=== PATIENT | female | born 1955 | race Caucasian/White ===

== ENCOUNTER → 2016-12-27 | Outpatient (CLI) | payer OTHER ==
[~2016-12-27] MED LIST: ANTIVERT25 MG PO; ASPIRIN81 M1 PO; CEPHALEXIN500 M1 PO; CIPROFLOXACIN500 MG PO; DELTASONE20 M1 PO; HYDROCODONE BIT1 T11 PO; MEDROL DOSEPAK4 MG PO; MOTRIN800 MG PO; Motrin,Rufen800 MG PO; NKHM; PREDNICOT20 MG PO; ULTRAM50 MG PO; VIBRAMYCIN100 MG PO; VICODIN 5/500 505 MG PO; ZOFRAN ODT8 MG PO
== END | disposition home or self-care (01) ==
LOC: RAD 15:28
DX: R06.02 Shortness of breath (principal)

== ENCOUNTER 2017-08-09 13:18 | Inpatient (IN) | payer OTHER ==
[~2017-08-09] VITALS: Ht 167.6 cm; Wt 81.6 kg
--- NOTE | ~2017-08-09 | WRIGHTHP ---
[place], [place] PATIENT HISTORY AND PHYSICAL EXAM NAME: BRIANA DECKER [facility] #: [id number] UNIT #: [id number] ROOM: 521 DOCTOR: RACQUEL YOUNG MD BIRTHDATE: [birth year] DOS: 08/09/2017 HISTORY OF PRESENT ILLNESS: A 62-year-old years old, not known to me. The patient was in her usual state of health when she started experiencing some dizziness, nausea, emesis and vertigo-like symptoms. So, she decided to come into the Emergency Room. She denies having any chest pains or palpitations. Does not have any fever or chills. Does not have any cough, runny nose, sinus congestion or any URI symptoms. Does not have any shortness of breath. She does have some headaches this morning. She was admitted, was placed on Antivert and IV steroids and she feels better than yesterday. PAST MEDICAL HISTORY: Significant for: 1. Psoriatic arthritis. 2. Chronic migraines. 3. History of an admission here in 2012 with vertigo and was diagnosed at that time with benign positional vertigo. MEDICATIONS: She is on hydroxychloroquine and prednisone 5 b.i.d. SOCIAL HISTORY: Nonsmoker, does not use any alcohol. PHYSICAL EXAMINATION: VITAL SIGNS: Pressure is 109/59, pulse of 57, respirations 20, temperature 97.3. LUNGS: Clear. HEART: Regular. ABDOMEN: Obese, soft, nontender. EXTREMITIES: Without any edema. HEENT: Ear, nose and throat examination was within normal limits. LABORATORY DATA: White cell count elevated at 12.8. C-reactive protein 9.84. Comprehensive glucose 172, BUN 15, creatinine 1.20. Electrolytes were normal. ASSESSMENT AND PLAN: 1. Acute onset of nausea, emesis and vertigo, most likely has underlying Meniere's disease. The patient is placed on Antivert, also started on prednisone for possibility of vestibular neuritis, which I doubt after examining the patient, so the steroids will be discontinued. MRI of the brain has been ordered along with a carotid Doppler and if they come back negative, the plan will be to discharge the patient to home. 2. Chronic kidney disease. The patient is not on any nephrotoxic medications except for hydroxychloroquine, which needs to be continued to follow up as an outpatient. 2. Elevated CRP, check ESR, may need to consider temporal arteritis if the headaches persist. [place], [place] PATIENT HISTORY AND PHYSICAL EXAM [facility] [id number] UNIT #: [id number] ROOM: 521 DOCTOR: RACQUEL YOUNG MD BIRTHDATE: [birth year] RACQUEL YOUNG MD CM:HISPHYS:PATIENT HISTORY AND PHYSICAL EXAMINATION [id number] RACQUEL YOUNG MD 08/10/17 0941 interface
[2017-08-09 13:26] VITALS: BP 126/75
[2017-08-09 13:40] LABS: BASO % 0.2 % (0.0-1.0); EOS % 0.1 % (1.0-4.0); HEMOGLOBIN 12.6 g/dl (12.0-16.0); LYMPH # 0.5 10*3/uL (1.3-4.4); LYMPH % 4.2 % (27.0-41.0); MEAN CELL VOLUME 79.1 fl (81.0-99.0); MEAN CORPUSCULAR HGB 24.9 pg (27.0-31.0); MEAN CORPUSCULAR HGB CONC 31.5 g/dl (33.0-37.0); MEAN PLATELET VOLUME 9.3 fl (9.6-12.3); MONO # 0.9 10*3/uL (0.1-1.0); MONO % 7.1 % (3.0-9.0); NEUT # 11.2 10*3/uL (2.3-7.9); NEUT % 87.9 % (47.0-73.0); PLATELET COUNT AUTOMATED 180 10*3/uL (130-400); RED BLOOD COUNT 5.06 10*6/uL (4.10-5.10); RED CELL DISTRI WIDTH 17.3 % (0-14.5); WHITE BLOOD COUNT 12.8 10*3/uL (4.8-10.8)
[2017-08-09 13:49] LABS: ACT PARTIAL THROMBO TIME 22.5 SECONDS (20.8-31.5); INTERNATIONAL NORM RATIO 1.1 (2.0-3.5)
[2017-08-09 13:56] LABS: ALBUMIN 3.3 gm/dl (3.1-4.5); ALKALINE PHOSPHATASE 116 U/L (45-117); BUN 15 mg/dl (7-24); CHLORIDE 100 mmol/L (98-107); POTASSIUM 3.5 mmol/L (3.5-5.1); SGOT/AST 44 IU/L (3-35); SGPT/ALT 45 U/L (12-78); SODIUM 136 mmol/L (136-145); TOTAL PROTEIN 7.1 gm/dL (6.4-8.2)
[2017-08-09 13:58] LABS: TROPONIN I < 0.015 ng/ml (<0.045)
[2017-08-09 15:20] VITALS: BP 100/51
[2017-08-09 16:12] VITALS: BP 124/68
[2017-08-09] MEDS ORDERED: PREDNISONE5 MG PO (16:16)
[2017-08-09] MEDS ORDERED: PRILOSEC20 M1 PO (16:16)
[2017-08-09] MEDS ORDERED: HYDROXYCHLOROQ200 M1 PO (16:16)
[2017-08-09 18:09] VITALS: BP 115/66
[2017-08-09 21:49] VITALS: BP 105/61
[2017-08-10] VITALS: BP 109/59
[2017-08-10 08:00] VITALS: BP 108/58
[2017-08-10] MEDS ORDERED: MECLIZINE HCL25 M2 PO (08:36)
[2017-08-10 12:00] VITALS: BP 142/84
[2017-08-10 16:00] VITALS: BP 140/70
== END 2017-08-10 17:49 | disposition home or self-care (01) | DRG 149 ==
LOC: ED 13:18 → 5E 15:57 → EDHOLD 15:57 → 5E 16:33
PROVIDERS: Emergency Medicine
DX: H81.09 Meniere's disease, unspecified ear (principal); L40.50 Arthropathic psoriasis, unspecified; H93.3X9 Disorders of unspecified acoustic nerve; E66.9 Obesity, unspecified; G43.909 Migraine, unspecified, not intractable, without status migrainosus; N18.9 Chronic kidney disease, unspecified

== ENCOUNTER 2017-09-22 10:05 | Inpatient (IN) | payer OTHER ==
[~2017-09-22] VITALS: Ht 167.6 cm; Wt 77.6 kg
--- NOTE | ~2017-09-22 | PR ---
[place], [place] PROGRESS NOTE NAME: BRIANA DECKER UNIT #: [id number] ROOM: 403 DOCTOR: RACQUEL YOUNG MD BIRTHDATE: [birth year] DOS: SUBJECTIVE: The patient is having a lot of discomfort in her hands and legs. She also has some discomfort when she moves on the left side of the rib cage. She has continued to spike a fever with a temperature of 102.8 at 2000 hours yesterday. Midnight was 100.5, this morning fever has not been recorded yet. OBJECTIVE: GENERAL: She is awake and alert and oriented, in no major distress, except for discomfort of synovitis in her hands. VITAL SIGNS: Blood pressure is 113/57, pulse of 102, respirations 20, temperature 100.5,LUNGS: Diminished breath sounds. HEART: Regular. ABDOMEN: Soft, scaphoid. EXTREMITIES: Without any edema, but significant synovitis noticed in both her hands. LABORATORY DATA: WBC count is 13.6, hemoglobin 8.6, hematocrit 28.3, platelets 254. CT of the chest shows bilateral atelectasis with pleural thickening. 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 Urine culture is still not completed, gram-negative bacteria more than 100,000. ASSESSMENT AND PLAN: 1. Psoriatic arthritis with continued synovitis of hands, legs, ankles, knees, possibly responsible for fever, so placed on IV steroids. 2. Atelectasis bilaterally. Incentive spirometry will be ordered and advised consultation with Dr. Silverio. 3. Abnormal CT findings. An MRI of the kidney will be ordered. A complex mass is concerning. She has history of left nephrectomy for a mass which was benign, but pretty large. This was done in 1998 and she does not have any details. White cell count has come down from 17.6 to 13.6. The flu titer was negative. Lactic acid is normal. [place], [place] PROGRESS NOTE NAME: BRIANA DECKER UNIT #: [id number] ROOM: 403 DOCTOR: RACQUEL YOUNG MD BIRTHDATE: [birth year] RACQUEL YOUNG MD CM:PNTRANS [phone] RACQUEL YOUNG MD 09/24/17 0758 interface
--- NOTE | ~2017-09-22 | PR ---
[place], [place] PROGRESS NOTE NAME: BRIANA DECKER [facility] #: [id number] UNIT #: [id number] ROOM: 403 DOCTOR: RACQUEL YOUNG MD BIRTHDATE: [birth year] DOS: SUBJECTIVE: The patient feels better this morning. Her aches and pains in the hands have resolved. The fevers have completely. OBJECTIVE: VITAL SIGNS: Graphic trend shows blood pressure 116/68, pulse of 55, respirations 20, temperature 97.7, T-max was yesterday morning at 101.2 before the steroids were started. LUNGS: Diminished breath sounds. No wheezes heard. HEART: Regular. ABDOMEN: Obese, soft. EXTREMITIES: Without any edema. ASSESSMENT AND PLAN: 1. Fever, most likely inflammatory because it seems to have resolved once the IV steroids were started, so we can discontinue Rocephin and vancomycin, continue Levaquin. 2. Urinary tract infection with Escherichia coli, which is sensitive to Cipro. 3. Atelectasis of the lungs. Dr. Silverio has seen the patient, appreciate consult. PPD will be done because the patient had been on Enbrel in the past and we will add hydroxychloroquine for the psoriatic arthritis. RACQUEL YOUNG MD CM:PNTRANS [id number] RACQUEL YOUNG MD 09/25/17 1007 interface
--- NOTE | ~2017-09-22 | WRIGHTHP ---
[place], [place] PATIENT HISTORY AND PHYSICAL EXAM NAME: BRIANA DECKER [facility] #: [id number] UNIT #: [id number] ROOM: 403 DOCTOR: RACQUEL YOUNG MD BIRTHDATE: [birth year] DOS: 09/22/2017 HISTORY OF PRESENT ILLNESS: This patient is known to me from a previous admission. She was here in July 2017 with complaints of dizziness, nausea, vomiting and thought to be related to Meniere's disease. She was placed on Antivert and discharged to home. 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 While there she also mentioned to him that she was having a lot of chills and rigor, so he advised her to go to the Emergency Room where she was evaluated and was admitted. The patient states that she has had no abdominal pain, but she has been nauseous. She has not been eating very well. She does not have any urinary symptoms, does not have any diarrhea, does not have any chest pains or palpitations or shortness of breath. Does have some chronic aches and pains, but she does not have any dizziness, lightheadedness or headaches. PAST MEDICAL HISTORY: Significant for: 1. Psoriatic arthritis. 2. Chronic migraines.. MEDICATIONS: The only medication that she tells me that she is on right now is gabapentin 300 mg 3 times a day. She also had been on hydroxychloroquine in the past. PHYSICAL EXAMINATION: GENERAL: Today she is awake and alert and oriented. VITAL SIGNS: Blood pressure is 121/67, pulse of 76, respirations 18, T-max of 103.6. LUNGS: Diminished breath sounds. No wheezes, rales or rhonchi heard. HEART: Regular. ABDOMEN: Obese, soft, nontender. EXTREMITIES: Without any edema. No costovertebral angle tenderness noted. HEENT: Absolutely within normal limits. NECK: No neck rigidity felt. ASSESSMENT AND PLAN: 1. The patient with high grade fever. Urine culture is showing negative bacteria. We do not have any identification. She is on ____. Because of high-grade fever, she was also started on vancomycin. Lactic acid is normal. Chest x-ray was unremarkable, but because of again high grade fever we will need to rule out pyelonephritis, so CT of the abdomen will be ordered. 2. The patient with psoriatic arthritis. We will go ahead and arrange for ESR, CRP to make sure that this fever is not infectious and possibly inflammatory. Home medications have been continued. Further treatment plan depending on the culture results and CT findings. [place], [place] PATIENT HISTORY AND PHYSICAL EXAM NAME: BRIANA DECKER UNIT #: [id number] ROOM: 403 DOCTOR: RACQUEL YOUNG MD BIRTHDATE: [birth year] RACQUEL YOUNG MD CM:HISPHYS:PATIENT HISTORY AND PHYSICAL EXAMINATION 6 09 RACQUEL YOUNG MD 09/24/17 0618 interface
--- NOTE | ~2017-09-22 | PR ---
[place], [place] PROGRESS NOTE NAME: BRIANA DECKER [facility] #: [id number] UNIT #: [id number] ROOM: 403 DOCTOR: RACQUEL YOUNG MD BIRTHDATE: [birth year] DOS: SUBJECTIVE: The patient is doing fine without any complaints. OBJECTIVE: VITAL SIGNS: Graphic trend shows a pressure of 135/71, pulse of 74, respirations 20, temperature 98.8. LUNGS: Clear. HEART: Regular. ABDOMEN: Obese, soft. EXTREMITIES: Without any edema. Synovitis is improving. MRI of the kidney shows multiple masses in the kidney, which appears to be angiolipomas. There is some increase in the size since 2014. ASSESSMENT AND PLAN: 1. The patient who presented with fever from an inflammatory joint disease. The patient is stable and improved. 2. Urinary tract infection, on antibiotics. 3. 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 The patient is advised to follow up with PCP, stable and can be discharged today. RACQUEL YOUNG MD CM:PNTRANS 0830 RACQUEL YOUNG MD 09/27/17 0922 interface
--- NOTE | ~2017-09-22 | PR ---
[place], [place] PROGRESS NOTE [id number] UNIT #: [id number] ROOM: 403 DOCTOR: ALEXANDRA QUINONES MD BIRTHDATE: [birth year] DOS: 09/26/2017 PULMONARY FOLLOWUP SUBJECTIVE: The patient noted comfortable at this time, but noted with continued resolution of the temperature. The coughing has been noted minimal and dry. There were no symptoms of chest pain or abdominal pain. OBJECTIVE: VITAL SIGNS: For the patient which were recorded showed the temperature noted as normal, respiratory rate 18, heart rate 78, blood pressure 150/79. The pulse oxygen saturation of the patient room air 94% saturation. HEENT: Head was atraumatic. Eyes: No icterus. NECK: Supple. CARDIOVASCULAR: S1, S2 audible. LUNGS: Noted without any wheezing or crackles. ABDOMEN: Soft, nontender. Bowel sounds present. EXTREMITIES: Without any acute edema. LABORATORY DATA: The MRI of the abdomen shows evidence of right renal angiolipomas overall increase in the volume compared to the older study from 06/13/2017. IMPRESSION: 1. The patient who has been noted to have resolution. The temperature for the patient most likely related to the current inflammatory arthropathy, this patient responded well to the treatment of corticosteroids and evidence of sepsis or septic arthritis. 2. Angiolipoma for the patient, which has been noted. The lung disease associated symptoms with angiolipoma. The patient is a lymphangioleiomyomatosis. However, the patient does not have any clinical radiologic evidence of such disease. PLAN OF MANAGEMENT: Continue corticosteroids, consider discontinuing all the antibiotics. Discharge planning could be started. [place], [place] PROGRESS NOTE NAME: BRIANA DECKER UNIT #: [id number] ROOM: 403 DOCTOR: ALEXANDRA QUINONES MD BIRTHDATE: [birth year] ALEXANDRA SMYTH MD CM:PNTRANS [id number] ALEXANDRA MARIE MD 09/27/17 0043 interface
--- NOTE | ~2017-09-22 | PR ---
[place], [place] PROGRESS NOTE NAME: BRIANA DECKER [facility] #: [id number] UNIT #: [id number] ROOM: 403 DOCTOR: RACQUEL YOUNG MD BIRTHDATE: [birth year] DOS: SUBJECTIVE: The patient is doing fine without any complaints. OBJECTIVE: VITAL SIGNS: blood pressure is 135/72, pulse of 58, respirations 20, temperature 98.6. LUNGS: Clear. HEART: Regular. ABDOMEN: Obese, soft, nontender. EXTREMITIES: Decreased edema. ASSESSMENT AND PLAN: 1. Psoriatic arthritis with severe synovitis, most likely responsible for the high-grade fever, which responded with IV steroids and the patient is much better. We will cut back on the steroids. 2. Urinary tract infection with Escherichia coli, already on Cipro. 3. Atelectasis of the lungs. Discussed with Dr. Silverio. This does not appear to be pneumonia and no inflammatory pathology is noted. 4. Renal cystic mass, awaiting an MRI. The plan is to discharge her to home tomorrow. RACQUEL YOUNG MD CM:PNTRANS 0826 RACQUEL YOUNG MD 09/26/17 0903 interface
--- NOTE | ~2017-09-22 | DS ---
[place], [place] DISCHARGE SUMMARY NAME: BRIANA DECKER [facility] #: [id number] UNIT #: [id number] ROOM: 403 DOCTOR: RACQUEL YOUNG MD BIRTHDATE: [birth year] DOS: 09/27/2017 DIAGNOSES: 1. Fever, most likely inflammatory, arthropathy causing it, resolved with IV steroids. 2. Urinary tract infection with negative blood cultures. 3. Angiomyolipoma of the kidney. 4. History of the right kidney which seems to have increased slightly from the comparison CT of 2014. 5. History of left nephrectomy for a similar problem. 6. Psoriatic arthritis. 7. Chronic migraines. MEDICATIONS: She is on are hydroxychloroquine 200 b.i.d., Ceftin 250 twice daily, prednisone 40 daily for 5 days, 30 daily for 5 days, 20 daily for 5 days, 10 daily continuous without a stop ____ , gabapentin 300 t.i.d. HOSPITAL COURSE: This patient is very well to me from a previous admission, 62-year-old who presents with chills and rigor. Please refer to H and P for details. After admission, she had urine culture, blood cultures ordered. Chest x-ray was negative. Urine showed E. coli and she was placed on appropriate antibiotics. The patient continued to spike a fever even on antibiotics. No major infectious source was identified. Blood cultures were negative. The patient did not have any meningeal signs. She did not have any ENT issues. Blood cultures came back negative. CT of the chest showed some small mild atelectasis. No actual pneumonia was seen, so this was thought to be related to inflammatory arthropathy and the patient was started on IV steroids. With that the fever completely resolved in 2 hours after the IV steroids were given and she has remained afebrile since then. MRI of the abdomen was done because of an abnormal CT showing up a cystic mass of the kidney. This again shows multiple masses in the right kidney which appears to be angiomyolipoma. The patient is advised not to take any nonsteroidals because she has history of nephrectomy and the right kidney having angiomyolipoma increases the risk of renal failure. The patient is stable and improved and is not having any new problems, so plan is to discharge her to home, to be followed up by her PCP. [place], [place] DISCHARGE SUMMARY NAME: BRIANA DECKER UNIT #: [id number] ROOM: 403 DOCTOR: RACQUEL YOUNG MD BIRTHDATE: [birth year] RACQUEL YOUNG MD CM:MELLY [phone] RACQUEL YOUNG MD 09/27/17 0922 interface
--- NOTE | ~2017-09-22 | CON ---
[place], [place] REPORT OF CONSULTATION NAME: BRIANA DECKER [facility] #: [id number] UNIT #: [id number] ROOM: 403 DOCTOR: LIBRA MARIE MDALEXANDRA BIRTHDATE: [birth year] DOS: 09/24/2017 PULMONARY CONSULTATION EVALUATION CONSULTATION REQUESTED BY: Dr. Nicole Ogden. REASON FOR CONSULTATION: To assess the patient's fever and to assess for any pulmonary pathology. HISTORY OF PRESENT ILLNESS: This is a 62-year-old white female, who has been noted with history of psoriasis, psoriatic arthritis/rheumatoid arthritis. The patient had been seen by the dynamiter. She has been recently assessed and was started on Enbrel and taken 10 doses of Enbrel as ordered in the past several weeks. The patient stated that she has developed progressive fatigue and tiredness, with increase symptoms, arthritis and others as she has took the Enbrel. The patient was also noted with some pain in the joints mostly in the upper extremities as well as in the right foot. The patient has been admitted to the hospital under care of Dr. Nicole Ogden on 09/22/2017. The patient reported symptoms of generalized weakness and fatigue. Denies any symptoms of acute shortness of breath. The patient does have a nonproductive cough. Denies symptoms of any chest pain. Denies symptoms of hemoptysis. REVIEW OF SYSTEMS: CONSTITUTIONAL: Fatigue and tiredness with fever noted at home and a significant amount of chills in the last several days. EYES: Denies any burning, redness, or discharge. EARS, NOSE, THROAT SYMPTOMS: Denies sore throat, hoarseness, otalgia, postnasal drainage, or epistaxis. CARDIOVASCULAR: Denies angina pain, palpitation or edema of the lower extremities. GASTROINTESTINAL: Dysphagia, nausea, vomiting, diarrhea, abdominal pain, hematemesis, melena, or hematochezia. GENITOURINARY: No dysuria, suprapubic pain, or hematuria. MUSCULOSKELETAL: Pain was noted in the joint of the bilateral fingers, hands as well as in the right foot. The patient has noted some deformities related with the previous arthritis, which has been diagnosed and treated. SKIN: Abnormal lesions or rashes. CENTRAL NERVOUS SYSTEM: No dizziness, headache, diplopia, syncopal episodes, or dizziness. Remaining systems were reviewed. They were noted all negative. PAST MEDICAL HISTORY: 1. History of psoriasis and psoriatic arthritis. 2. Chronic migrainous headache. 3. Mild obesity. SOCIAL HISTORY: The patient was noted nonsmoker lifetime. There was no history of alcohol or illicit drug use. , has 2 children and lives at home. [place], [place] REPORT OF CONSULTATION NAME: BRIANA DECKER UNIT #: [id number] ROOM: 403 DOCTOR: ALEXANDRA QUINONES MD BIRTHDATE: [birth year] FAMILY HISTORY: Mother is living 90-year-old with history of dementia. Father is 91 years old without any known medical illnesses. PAST SURGICAL HISTORY: Reported as left kidney surgery, which was noted noncancerous, in 1998 removed. Bilateral total knee replacement in 2017. MEDICATIONS: Current administered medication was noted as use of IV Solu-Medrol 30 mg b.i.d., vancomycin, Rocephin and pain medications as well as gabapentin. DRUG ALLERGY HISTORY: No known drug allergies. PHYSICAL EXAMINATION: GENERAL: A 62-year-old female has been currently noted to be awake and alert, sitting on the chair. The was also present in the room at time of the history and physical examination and assessment. The patient's height was noted as 5 feet 6 inches, weight of 171 pounds. The BMI noted 27. VITAL SIGNS: Which has been recorded showed the temperature noted as a T-max of 102.8 degree Fahrenheit that occurred yesterday in the afternoon. Admission, temperature noted 99.2 degree Fahrenheit. The respiratory rate was ranging between 20-18, heart rate of 106-118 with mild sinus tachycardia, blood pressure 150/65-97/59. The pulse oxygen saturation noted on room air 95% saturation. HEENT: Examination shows head was atraumatic. Eyes nonicterus. NECK: Supple. CARDIOVASCULAR: S1, S2 was audible. LUNGS: Clear, noted bilaterally on auscultation. There were no added sounds. ABDOMEN: Noted with [id number] obesity. Bowel sounds present. EXTREMITIES: Noted without any acute edema, clubbing or cyanosis. CENTRAL NERVOUS SYSTEM: Cranial nerves 2-12 intact. No focal deficit. MUSCULOSKELETAL: Noted with some swelling without any palpable area of abscess or redness noted in any of the joints of the hands and the right foot. SKIN: Visible skin, no lesions or rashes at this time. LABORATORY DATA: The CBC today on admission, WBC count 17.3, hemoglobin 10.5, hematocrit normal, and platelet count normal. Lactic acid 1.3 on admission. CMP of 09/22/2017 on admission, BUN 13, creatinine 1.15. Albumin 2.8. Influenza A and B, nasal washing antigens were noted negative. CBC this morning, WBC count 13.6, hemoglobin 8.6, normal platelet. BMP of the patient noted normal BUN, creatinine, glucose normal. C-reactive protein 20. Urine culture noted heavy growth of E. coli, noted essentially pansensitive species. ESR was noted 80 this morning. Vancomycin trough level 10.9. Blood culture from the of this month showed no bacterial growth. The CT scan of the abdomen and pelvis, and chest was also done. CT scan of the abdomen and pelvis, which were reported by the radiology service, findings were dictated as a complex cyst with gradual enlargement. The right kidney without any other abnormal findings were reported on comparison of the CT scan done on 06/13/2014 by the radiologist. Chest CT scan was done and assessed. The parenchymal window was personally reviewed shows mild pleural thickening noted with some area of atelectasis in the left lower lobe, otherwise lungs were noted clear of any acute pulmonary infiltration. The mediastinal window were also reviewed, does not show any significant lymphadenopathy. [place], [place] REPORT OF CONSULTATION NAME: BRIANA DECKER UNIT #: [id number] ROOM: 403 DOCTOR: ALEXANDRA QUINONES MD BIRTHDATE: [birth year] IMPRESSION: 1. The patient who has been currently admitted to the hospital with mild nonproductive cough may be of not clinical significant noted with the fever up to 100 degrees Fahrenheit with possible consideration of viral syndrome. So far, there has not been any focus of infection noted for the current assessment except only urine culture noted positive for E. coli, which has already been treated based on the sensitivities with the use of Rocephin. 2. History of psoriatic arthritis with edema noted as well. 3. Fever has been reported with the use of Enbrel previously, the patient has not been taking the medication currently as well. There were no signs of any active systemic infection such as ____ infection was known. PLAN OF MANAGEMENT: Agree with the use of steroids for inflammatory condition, treatment, most likely arthritis, could also cause fever at this time closely monitor culture results. TB Gold test will be ordered as a part of the workup since the patient was previously given as the Enbrel. The monitoring will be continued closely with recent change in treatment might be recommended based on any new data or information if available. The coughing has been noted dry and not severe and would not require any cultures as well. All other supportive therapy and plan of management to be done. Additional treatment changes will be made based on the progression of the illness. ALEXANDRA SMYTH MD CM:CONSTR:REPORT OF CONSULTATION 1527 09/25/17 0354 interface
--- NOTE | ~2017-09-22 | PR ---
[place], [place] PROGRESS NOTE NAME: BRIANA DECKER [facility] #: [id number] UNIT #: [id number] ROOM: 403 DOCTOR: LIBRA MARIE MD,ALEXANDRA BIRTHDATE: [birth year] DOS: 09/27/2017 PULMONARY PROGRESS NOTE SUBJECTIVE: She has been noted comfortable. At this time, resting on the bed with complete resolution of the respiratory symptoms, nonproductive cough as well as a fever. The patient now noticed symptoms of hemoptysis. She was planned for home discharge today, assessed by Dr. Nicole Ogden. OBJECTIVE: VITAL SIGNS: Normal temperature, respiratory rate 20, heart rate 84, blood pressure is 155/94. Pulse ox on room air 99-100% saturation. HEENT: Examination shows head was atraumatic. Eyes nonicterus. NECK: Supple. CARDIOVASCULAR: S1, S2 is audible. LUNGS: Noted without any wheeze or crackles. ABDOMEN: Soft, nontender. EXTREMITIES: Without any acute edema. IMPRESSION: 1. Stable respiratory status was noted at the present time. 2. Arthritis was noted inflammatory, treated with current steroids and resolution of the fever. PLAN OF MANAGEMENT: No changes in the plan of management at this time. The patient will be continued on current plan of therapy as previously. Usual care, other supportive plan of management, and treatments. ALEXANDRA SMYTH MD CM:PNTRANS [phone] ALEXANDRA MARIE MD 09/28/17 0106 interface
--- NOTE | ~2017-09-22 | PR ---
[place], [place] PROGRESS NOTE NAME: BRIANA DECKER [facility] #: [id number] UNIT #: [id number] ROOM: 403 DOCTOR: LIBRA MARIE MD,ALEXANDRA BIRTHDATE: [birth year] DOS: 09/25/2017 SUBJECTIVE: She has been noted comfortable at this time, feeling much better since the patient started on steroids, resolution of the fever was noted with that as well. She was also reported reduction of the pain and swelling of the joints of the hands and the wrists. She has not been reported any pain in the foot as well. OBJECTIVE: VITAL SIGNS: For the patient shows normal temperature, respiratory rate 18, heart rate 71, blood pressure 120/72. The pulse oxygen saturation on room air 96% saturation. HEENT: Examination shows head was atraumatic. Eyes nonicterus. NECK: Supple. CARDIOVASCULAR: S1, S2 is audible. LUNGS: The patient was noted without any wheeze or crackles at the present time. ABDOMEN: Soft, nontender. EXTREMITIES: Without any acute edema. IMPRESSION: The patient with urinary tract infection, resolution of the fever, with acute inflammatory arthropathy for this patient, with history of psoriatic arthritis, most likely is the cause of the pain. PLAN OF TREATMENT: Continue corticosteroids at the current dose. Deescalating the antibiotics for the patient as well. At the present time, the patient response to treatment. Continue antibiotic for the management urinary tract infection. Vancomycin will be discontinued. Other supportive therapy, plan of management for the patient to be continued. Potential discharge home could be considered in the morning. The patient remains afebrile with the current antibiotic usage. ALEXANDRA SMYTH MD CM:PNTRANS [id number] ALEXANDRA MARIE MD 09/25/172135 interface
[~2017-09-22 10:05] MED LIST changes: +HYDROXYCHLOROQ200 M1 PO; +MECLIZINE HCL25 M2 PO; +PREDNISONE5 MG PO; +PRILOSEC20 M1 PO
[2017-09-22 10:15] VITALS: BP 133/86
[2017-09-22 10:34] LABS: BASO % 0.2 % (0.0-1.0); EOS # 0.1 10*3/uL (0.0-0.4); EOS % 0.6 % (1.0-4.0); HEMATOCRIT 33.5 % (37.0-47.0); HEMOGLOBIN 10.5 g/dl (12.0-16.0); LYMPH # 0.6 10*3/uL (1.3-4.4); LYMPH % 3.6 % (27.0-41.0); MEAN CELL VOLUME 80.3 fl (81.0-99.0); MEAN CORPUSCULAR HGB 25.2 pg (27.0-31.0); MEAN CORPUSCULAR HGB CONC 31.3 g/dl (33.0-37.0); MEAN PLATELET VOLUME 9.7 fl (9.6-12.3); MONO # 0.9 10*3/uL (0.1-1.0); MONO % 5.3 % (3.0-9.0); NEUT # 15.5 10*3/uL (2.3-7.9); NEUT % 89.8 % (47.0-73.0); PLATELET COUNT AUTOMATED 360 10*3/uL (130-400); RED BLOOD COUNT 4.17 10*6/uL (4.10-5.10); RED CELL DISTRI WIDTH 15.1 % (0-14.5); WHITE BLOOD COUNT 17.3 10*3/uL (4.8-10.8)
[2017-09-22 10:48] LABS: ALBUMIN 2.8 gm/dl (3.1-4.5); CREATININE 1.15 mg/dL (0.55-1.02); POTASSIUM 3.9 mmol/L (3.5-5.1); TOTAL PROTEIN 7.7 gm/dL (6.4-8.2)
[2017-09-22 11:14] LABS: BILIRUBIN 2+ (NEGATIVE); BLOOD NEGATIVE (NEGATIVE); CLARITY CLOUDY (CLEAR); COLOR YELLOW (YELLOW); GLUCOSE NEGATIVE (NEGATIVE); KETONE 1+ (NEGATIVE); LEUKO ESTERASE 2+ (NEGATIVE); NITRITE POSITIVE (NEGATIVE); SPECIFIC GRAVITY 1.025 (1.005-1.030)
[2017-09-22 11:22] LABS: BACTERIA 4+; EPITHELIAL CELLS 16-20; WBC 51-100 wbc/hpf (0-5)
[2017-09-22 13:40] VITALS: BP 111/67
[2017-09-22] MEDS ORDERED: NEURONTIN300 MG PO (14:12)
[2017-09-22] MEDS ORDERED: ENBREL50 MG/1 M1 SQ (14:13)
[2017-09-22 14:30] VITALS: BP 115/60
[2017-09-22 16:00] VITALS: BP 120/69
[2017-09-22 20:00] VITALS: BP 130/72
[2017-09-23] VITALS: BP 97/59
[2017-09-23 05:55] LABS: BASO % 0.2 % (0.0-1.0); EOS # 0.1 10*3/uL (0.0-0.4); HEMATOCRIT 28.7 % (37.0-47.0); HEMOGLOBIN 8.8 g/dl (12.0-16.0); LYMPH # 0.6 10*3/uL (1.3-4.4); LYMPH % 5.6 % (27.0-41.0); MEAN CELL VOLUME 81.1 fl (81.0-99.0); MEAN CORPUSCULAR HGB 24.9 pg (27.0-31.0); MEAN CORPUSCULAR HGB CONC 30.7 g/dl (33.0-37.0); MEAN PLATELET VOLUME 9.9 fl (9.6-12.3); MONO # 0.6 10*3/uL (0.1-1.0); MONO % 5.6 % (3.0-9.0); NEUT # 9.9 10*3/uL (2.3-7.9); NEUT % 87.1 % (47.0-73.0); PLATELET COUNT AUTOMATED 280 10*3/uL (130-400); RED BLOOD COUNT 3.54 10*6/uL (4.10-5.10); RED CELL DISTRI WIDTH 15.1 % (0-14.5); WHITE BLOOD COUNT 11.4 10*3/uL (4.8-10.8)
[2017-09-23 06:07] LABS: BUN 11 mg/dl (7-24); CHLORIDE 104 mmol/L (98-107); CREATININE 1.01 mg/dL (0.55-1.02); POTASSIUM 3.6 mmol/L (3.5-5.1); SODIUM 135 mmol/L (136-145)
[2017-09-23 08:00] VITALS: BP 121/67
[2017-09-23 12:00] VITALS: BP 109/63
[2017-09-23 16:00] VITALS: BP 113/59
[2017-09-23 20:00] VITALS: BP 120/61
[2017-09-24] VITALS: BP 113/57
[2017-09-24 06:10] LABS: BASO % 0.2 % (0.0-1.0); EOS # 0.1 10*3/uL (0.0-0.4); HEMATOCRIT 28.3 % (37.0-47.0); HEMOGLOBIN 8.6 g/dl (12.0-16.0); LYMPH # 0.7 10*3/uL (1.3-4.4); LYMPH % 4.9 % (27.0-41.0); MEAN CELL VOLUME 82.5 fl (81.0-99.0); MEAN CORPUSCULAR HGB 25.1 pg (27.0-31.0); MEAN CORPUSCULAR HGB CONC 30.4 g/dl (33.0-37.0); MEAN PLATELET VOLUME 10.5 fl (9.6-12.3); MONO # 0.8 10*3/uL (0.1-1.0); MONO % 5.5 % (3.0-9.0); NEUT # 11.9 10*3/uL (2.3-7.9); NEUT % 87.8 % (47.0-73.0); PLATELET COUNT AUTOMATED 244 10*3/uL (130-400); RED BLOOD COUNT 3.43 10*6/uL (4.10-5.10); RED CELL DISTRI WIDTH 15.4 % (0-14.5); WHITE BLOOD COUNT 13.6 10*3/uL (4.8-10.8)
[2017-09-24 06:28] LABS: BUN 7 mg/dl (7-24); CHLORIDE 104 mmol/L (98-107); CREATININE 0.95 mg/dL (0.55-1.02); POTASSIUM 3.5 mmol/L (3.5-5.1); SODIUM 138 mmol/L (136-145)
[2017-09-24 08:00] VITALS: BP 114/78
[2017-09-24 12:00] VITALS: BP 115/65
[2017-09-24 16:00] VITALS: BP 110/60
[2017-09-24 20:00] VITALS: BP 95/61
[2017-09-25] VITALS: BP 116/68
[2017-09-25 08:00] VITALS: BP 102/68
[2017-09-25 08:08] LABS: RHEUMATOID ARTHRITIS FACTOR 12.7 IU/mL (0.0-13.9)
[2017-09-25 12:00] VITALS: BP 122/72
[2017-09-25 16:00] VITALS: BP 133/81
[2017-09-25 20:00] VITALS: BP 122/64
[2017-09-26] VITALS: BP 135/72
[2017-09-26 08:00] VITALS: BP 150/79
[2017-09-26 12:00] VITALS: BP 135/70
[2017-09-26 16:00] VITALS: BP 138/79
[2017-09-26 20:00] VITALS: BP 137/79
[2017-09-27] VITALS: BP 135/71
[2017-09-27 08:00] VITALS: BP 155/94
[2017-09-27] MEDS ORDERED: HYDROXYCHLOROQ200 M1 PO (08:31)
[2017-09-27] MEDS ORDERED: PREDNISONE5 MG PO (08:31)
[2017-09-27] MEDS ORDERED: CEFUROXIME AXE250 MG PO (08:31)
[2017-10-01 20:10] LABS: MITOGEN VALUE 0.03 IU/mL (.); TB Ag MINUS NIL VALUE <0.00 IU/mL (.); TB Ag VALUE 0.04 IU/mL (.); TB GOLD Indeterminate (Negative)
== END 2017-09-27 12:00 | disposition home or self-care (01) | DRG 872 ==
LOC: ED 10:05 → EDHOLD 13:26 → 4E 13:26
PROVIDERS: Emergency Medicine; Internal Medicine; Internal Medicine Critical Care Medicine
DX: A41.9 Sepsis, unspecified organism (principal); L40.50 Arthropathic psoriasis, unspecified; N39.0 Urinary tract infection, site not specified; J98.11 Atelectasis; D17.71 Benign lipomatous neoplasm of kidney; G43.909 Migraine, unspecified, not intractable, without status migrainosus; M19.90 Unspecified osteoarthritis, unspecified site; Z82.49 Family history of ischemic heart disease and other diseases of the circulatory system; Z80.8 Family history of malignant neoplasm of other organs or systems; G43.809 Other migraine, not intractable, without status migrainosus; E66.9 Obesity, unspecified; Z68.26 Body mass index [BMI] 26.0-26.9, adult

== ENCOUNTER 2017-10-03 09:38 | Inpatient (IN) | payer OTHER ==
[~2017-10-03] VITALS: Ht 167.6 cm; Wt 74.2 kg
--- NOTE | ~2017-10-03 | WRIGHTHP ---
[place], [place] PATIENT HISTORY AND PHYSICAL EXAM NAME: BRIANA DECKER [facility] #: [id number] UNIT #: [id number] ROOM: 506 DOCTOR: RACQUEL YOUNG MD BIRTHDATE: [birth year] DOS: 10/04/2017 HISTORY OF PRESENT ILLNESS: The patient is 62 years old, known to me from a previous admission. The patient comes in with increasing weakness. As per family members, after she left, she continued to worsen and over the last couple of days, she has not gotten out of bed. She has not eaten much food. She does not have any complaints of diarrhea, does not have any chest pains or palpitations. She hurts all over and she is unable to move much, mostly bedridden as per the and the patient. She has some minimal nausea, but does not have any upset stomach, any diarrhea, any urinary symptoms. PAST MEDICAL HISTORY: Significant for: 1. Again, last hospitalization with fever, most likely inflammatory arthritis. She was treated with steroids with resolution of fever. 2. Urinary tract infection. 3. Sepsis ruled out with negative cultures. 4. Angiomyolipoma of the kidney. 5. History of left nephrectomy for angiomyolipoma. 6. Psoriatic arthritis. 7. Chronic migraines. MEDICATIONS: She was currently on hydroxychloroquine, gabapentin, prednisone and Ceftin. SOCIAL HISTORY: Nonsmoker, does not use any alcohol. PHYSICAL EXAMINATION: GENERAL: She is awake and alert and oriented. VITAL SIGNS: Graph trend shows a pressure 145/79, pulse of 107, respirations 19, temperature 99.5. LUNGS: Diminished breath sounds. No wheezes heard. HEART: Regular. ABDOMEN: Obese, soft, nontender. EXTREMITIES: Without any edema. Synovitis seems to be much better than last admission I saw her, but she seems to have a very hard time even moving in bed. She had a hard time rolling over. She seems to be incredibly weaker than about a week ago. Echocardiogram showed normal LV function. Chest x-ray was negative. CT of the abdomen and pelvis shows angiomyolipoma, which is unchanged. Glucose 133, BUN 8, creatinine 0.81, sodium 138, potassium 3.8, chloride 104, bicarbonate 24. WBC count 27.1, hemoglobin 10.2, hematocrit 32.9, platelets 244. ESR was 57. CRP 15.40, which is an improvement from last admission. ASSESSMENT AND PLAN: 1. Adult failure to thrive with increasing weakness. The patient have PT, OT and possible social service for placement for rehabilitation purposes. 2. Inflammatory arthropathy with history of psoriatic arthritis. She was given a tapering dose of steroids when she left, ran out of the medicine about 3 days ago for unknown reason because the prescription was for prednisone without any [place], [place] PATIENT HISTORY AND PHYSICAL EXAM NAME: BRIANA DECKER UNIT #: [id number] ROOM: [facility] DOCTOR: RACQUEL YOUNG MD BIRTHDATE: [birth year] stop date. This may have made her much more weaker. The steroid also may have caused elevated white cell count. So, continue to monitor. Restart the low dose steroids and hopefully the white cell count comes down. Dr. Silverio has been consulted. Discussed with him in detail. 3. Low grade fever with possibly underlying infectious process. So far, cultures have come back negative, I will ask an ID opinion. The patient may require a Rheumatology consultation and may require transfer to another hospital. Yesterday, the patient did not want transferred out and will discuss with the patient more about it. 4. Possibility of Lyme disease, Lyme titer has been sent, doxycycline started. RACQUEL YOUNG MD CM:HISPHYS:PATIENT HISTORY AND PHYSICAL EXAMINATION 0914 RACQUEL YOUNG MD 10/04/17 3267 interface
--- NOTE | ~2017-10-03 | CON ---
[place], [place] REPORT OF CONSULTATION NAME: BRIANA DECKER [facility] #: [id number] UNIT #: [id number] ROOM: 506 DOCTOR: LIBRA MARIE MD,ALEXANDRA BIRTHDATE: [birth year] DOS: 10/04/2017 CONSULTATION REQUESTED BY: Nicole Ogden M.D. HISTORY OF PRESENT ILLNESS: This is a 62-year-old white female who has been known to me from recent hospitalization. The patient was admitted to the hospital with significant edema and pain of the joints, mainly involving the upper extremity as well as the right foot. The patient was treated with corticosteroids. Also noted febrile illness at this time. There was no infection isolated. The patient was treated and sent home and was taking prednisone, which has been tapered from 50 mg, 10 mg less to every sixth day. The patient presented back to the Emergency Room and was hospitalized from yesterday under the care of Dr. Nicole Ogden. The patient had developed significant pain, which is described in the muscles with difficulty of movement. The patient was complaining of pain, which is noted more generalized at this time. Denies symptoms of chest pain. She denies symptoms of coughing or sputum expectoration. Low-grade fever returned. The temperature noted yesterday at 99.5 degrees Fahrenheit, later 100 degrees Fahrenheit. The patient does complain of mild cough, which has been noted nonproductive previously. Denies any symptoms of hemoptysis or chest pain. She denies symptoms of acute shortness of breath. REVIEW OF SYSTEMS: CONSTITUTIONAL SYMPTOMS: Fatigue, tiredness still reported which I noted actually worsened than previously. Also noted low-grade fever in the last 24 hours. EYES: Denies any burning, redness, or tenderness. EARS, NOSE, THROAT SYMPTOMS: Denies sore throat, hoarseness, otalgia, postnasal drainage, or epistaxis. CARDIOVASCULAR: Denies anginal pain, edema, or pain in lower extremities. GASTROINTESTINAL: Denies dysphagia, nausea, vomiting, diarrhea, abdominal pain, hematemesis, melena, or hematochezia. GENITOURINARY: Some burning of the urination noted. There were no hematuria symptoms. CENTRAL NERVOUS SYSTEM: No dizziness, headache, diplopia, or syncopal episode. MUSCULOSKELETAL: The patient still noticed some pain in the joints and some muscles as well. The remaining systems were reviewed with the patient, they were noted all negative. PAST MEDICAL HISTORY, SOCIAL HISTORY, SURGICAL HISTORY, FAMILY HISTORY: All remained unchanged since my consultation of 09/24/2017. Reviewed with the patient and her , without changes noted at this time. Refer to the consultation for any details needed with the document present in the [facility]. CURRENT MEDICATIONS: The patient noted use of prednisone 20 mg daily, doxycycline 100 mg IV b.i.d., hydroxychloroquine 200 mg p.o. b.i.d., IV Zosyn 3.375 grams IV q. 8 hours, and Tylenol p.r.n. use. DRUG ALLERGIES: No known drug allergies. [place], [place] REPORT OF CONSULTATION NAME: BRIANA DECKER UNIT #: [id number] ROOM: [facility] DOCTOR: LIBRA MAIRE MD,ALEXANDRA BIRTHDATE: [birth year] PHYSICAL EXAMINATION: GENERAL: A 62-year-old white female patient was noted currently without any acute distress. Height of 5 feet 6 inches, weight 163 pounds, BMI 26.4. VITAL SIGNS: Temperature 100 degrees Fahrenheit to normal temperature, respiratory rate 18-19, heart rate of 104, mild sinus tachycardia 85, blood pressure 106/61-130/54. Pulse oxygen saturation on room air 97-100% saturation noted. HEENT: Head was atraumatic. Eyes nonicterus. NECK: Supple. CARDIOVASCULAR: S1, S2 audible. LUNGS: Without any wheezes or crackles at the present time. ABDOMEN: Soft, nontender. Bowel sounds present. EXTREMITIES: The patient noted without acute edema. MUSCULOSKELETAL: The patient was noted with chronic deformities. Previous synovitis finding and swelling of the wrist and metacarpophalangeal joint seemed to be decreased. CENTRAL NERVOUS SYSTEM: Difficult to examine due to the patient's decreased mobility; however, there were no focal neurologic deficits. Possibly, general weakness was considered. VISIBLE SKIN: Noted without rashes or lesions. IMAGING DATA: The patient's CT scan of the abdomen and pelvis that was done yesterday was noted without any acute abnormality. Benign lesion of the right kidney was noted, angiolipoma previously. A 2-view chest x-ray that was done in the Emergency Room was reviewed, essentially noted as negative study. LABORATORY DATA: C-reactive protein was noted elevated at 15.40. Lactic acid 2.1 on admission, later 0.8 yesterday. PT and PTT were normal. CBC yesterday, WBC count 27.1, hemoglobin 10.4, hematocrit 32.9, platelets 244,000. CMP on 10/03/2017, BUN normal, creatinine normal, glucose 196, sodium 134. CPK was noted as normal. ESR decreased to 57. Influenza A and B nasal washing antigen completed yesterday in the Emergency Room was reported negative. Urinalysis noted 2+ bacteria, otherwise no abnormal finding. CBC this morning, WBC count decreased to 24.1, hemoglobin 8.7, hematocrit 24.4, platelet count was normal. IMPRESSION: 1. The patient has been currently admitted to the hospital and noted with increased symptoms of rheumatologic nature. The patient was noted with general aches and pain, decreased mobility, as well as mild nonproductive cough. 2. History of psoriasis. There was no evidence of rheumatoid arthritis. There was no myopathy suspected. CPK was noted essentially low, then elevated. 3. Leukocytosis, could be an effect of use of the corticosteroids. Consideration for Lyme's disease has been given by Dr. Nicole Ogden. The patient stated that she has been going out, sitting on the bench s in the bushes. She also has dogs at bed at home. PLAN OF MANAGEMENT: Agree with the use of doxycycline until the Lyme's disease is excluded. The patient should require assessment in a tertiary care center by the neurologist as well as tele rn and possible allergy/immunology [place], [place] REPORT OF CONSULTATION NAME: BRIANA DECKER UNIT #: [id number] ROOM: 506 DOCTOR: LIBRA MARIE MD,ALEXANDRA BIRTHDATE: [birth year] services for more comprehensive assessment to meet the accurate diagnosis of current symptoms, which have been noted recurrent with increase in severity. She has been prescribed the corticosteroid previously resulting in resolution of the fever. There was no infection isolated. Currently, the patient's urine culture was noted negative. Other cultures were pending to be monitored. The patient was ordered Infectious Disease service, which is pending. I did speak with Dr. Nicole Ogden of the patient's assessment. The patient initially was stating not to be transferred to a tertiary care center, but after I did speak with the patient and her , with the discussion, she was agreeable to do so. In the meantime, I would not advise any change in medication. Current medical management noted in place to be continued. Usual care. ALEXANDRA SMYTH MD CM:CONSTR:REPORT OF CONSULTATION 1359 10/04/178 interface
[~2017-10-03 09:38] MED LIST changes: +CEFUROXIME AXE250 MG PO; +ENBREL50 MG/1 M1 SQ; +NEURONTIN300 MG PO
[2017-10-03 09:41] VITALS: BP 110/65
[2017-10-03 10:16] LABS: HEMATOCRIT 32.9 % (37.0-47.0); HEMOGLOBIN 10.2 g/dl (12.0-16.0); MEAN CELL VOLUME 80.2 fl (81.0-99.0); MEAN CORPUSCULAR HGB 24.9 pg (27.0-31.0); MEAN PLATELET VOLUME 10.3 fl (9.6-12.3); PLATELET COUNT AUTOMATED 244 10*3/uL (130-400); RED CELL DISTRI WIDTH 16.2 % (0-14.5); WHITE BLOOD COUNT 27.1 10*3/uL (4.8-10.8)
[2017-10-03 10:28] LABS: ALBUMIN 2.3 gm/dl (3.1-4.5); ALKALINE PHOSPHATASE 134 U/L (45-117); BUN 13 mg/dl (7-24); CHLORIDE 96 mmol/L (98-107); POTASSIUM 3.8 mmol/L (3.5-5.1); SGOT/AST 20 IU/L (3-35); SGPT/ALT 29 U/L (12-78); SODIUM 134 mmol/L (136-145); TOTAL PROTEIN 6.5 gm/dL (6.4-8.2)
[2017-10-03 10:33] LABS: ACT PARTIAL THROMBO TIME 21.9 SECONDS (20.8-31.5); INTERNATIONAL NORM RATIO 1.1 (2.0-3.5)
[2017-10-03 10:34] LABS: TROPONIN I < 0.015 ng/ml (<0.045)
[2017-10-03 10:35] LABS: PLATELET SUFFICIENCY NORMAL (NORMAL); TOTAL CELLS COUNTED 100 #CELLS
[2017-10-03 11:46] LABS: BILIRUBIN NEGATIVE (NEGATIVE); BLOOD NEGATIVE (NEGATIVE); CLARITY SL CLOUDY (CLEAR); COLOR YELLOW (YELLOW); GLUCOSE NEGATIVE (NEGATIVE); KETONE TRACE (NEGATIVE); LEUKO ESTERASE TRACE (NEGATIVE); NITRITE NEGATIVE (NEGATIVE); PH 8.5 (5.0-9.0); SPECIFIC GRAVITY 1.015 (1.005-1.030); UROBILINOGEN 0.2 E.U./dl (0.2-1.0)
[2017-10-03 12:12] LABS: BACTERIA 2+; EPITHELIAL CELLS 31-40; WBC 31-40 wbc/hpf (0-5)
[2017-10-03 12:39] VITALS: BP 106/61
[2017-10-03 13:00] VITALS: BP 113/66
[2017-10-03 16:00] VITALS: BP 103/61
[2017-10-03 20:00] VITALS: BP 127/69
[2017-10-04] VITALS: BP 145/79
[2017-10-04 06:32] LABS: HEMATOCRIT 28.4 % (37.0-47.0); HEMOGLOBIN 8.7 g/dl (12.0-16.0); MEAN CELL VOLUME 80.9 fl (81.0-99.0); MEAN CORPUSCULAR HGB 24.8 pg (27.0-31.0); MEAN CORPUSCULAR HGB CONC 30.6 g/dl (33.0-37.0); MEAN PLATELET VOLUME 10.1 fl (9.6-12.3); PLATELET COUNT AUTOMATED 219 10*3/uL (130-400); RED BLOOD COUNT 3.51 10*6/uL (4.10-5.10); RED CELL DISTRI WIDTH 16.2 % (0-14.5); WHITE BLOOD COUNT 24.1 10*3/uL (4.8-10.8)
[2017-10-04 07:04] LABS: BUN 8 mg/dl (7-24); CHLORIDE 104 mmol/L (98-107); CREATININE 0.81 mg/dL (0.55-1.02); POTASSIUM 3.8 mmol/L (3.5-5.1); SODIUM 138 mmol/L (136-145)
[2017-10-04 07:37] LABS: PLATELET SUFFICIENCY NORMAL (NORMAL); TOTAL CELLS COUNTED 100 #CELLS
[2017-10-04 08:00] VITALS: BP 130/54
[2017-10-04 12:00] VITALS: BP 127/72
[2017-10-05 08:13] LABS: HEPATITIS B SURFACE AG Negative (Negative); HEPATITIS C VIRUS ANTIBODY <0.1 s/co (0.0-0.9); HIV 1+2 AB + HIV1 P24 AG Non Reactive (Non Reactive)
== END 2017-10-04 14:11 | disposition short-term general hospital (02) | DRG 864 ==
LOC: ED 09:38 → 5E 12:25 → EDHOLD 12:25 → 5E 12:39
PROVIDERS: Emergency Medicine; Hospitalist; Internal Medicine
DX: R50.9 Fever, unspecified (principal); R65.10 Systemic inflammatory response syndrome (SIRS) of non-infectious origin without acute organ dysfunction; R53.1 Weakness; G43.909 Migraine, unspecified, not intractable, without status migrainosus; Z74.01 Bed confinement status; Z96.653 Presence of artificial knee joint, bilateral; R62.7 Adult failure to thrive; M12.80 Other specific arthropathies, not elsewhere classified, unspecified site; Z80.9 Family history of malignant neoplasm, unspecified; Z87.440 Personal history of urinary (tract) infections; Z82.49 Family history of ischemic heart disease and other diseases of the circulatory system; Z90.5 Acquired absence of kidney; Z87.01 Personal history of pneumonia (recurrent)

== ENCOUNTER 2017-10-25 00:26 | Emergency (ER) | payer OTHER ==
[~2017-10-25] VITALS: Ht 167.6 cm; Wt 72.6 kg
[2017-10-25 01:19] LABS: BASO % 0.4 % (0.0-1.0); EOS % 0.4 % (1.0-4.0); HEMATOCRIT 30.2 % (37.0-47.0); HEMOGLOBIN 8.9 g/dl (12.0-16.0); LYMPH # 0.7 10*3/uL (1.3-4.4); LYMPH % 6.4 % (27.0-41.0); MEAN CELL VOLUME 80.7 fl (81.0-99.0); MEAN CORPUSCULAR HGB 23.8 pg (27.0-31.0); MEAN CORPUSCULAR HGB CONC 29.5 g/dl (33.0-37.0); MEAN PLATELET VOLUME 9.6 fl (9.6-12.3); MONO # 0.8 10*3/uL (0.1-1.0); MONO % 7.3 % (3.0-9.0); NEUT # 9.5 10*3/uL (2.3-7.9); PLATELET COUNT AUTOMATED 210 10*3/uL (130-400); RED BLOOD COUNT 3.74 10*6/uL (4.10-5.10); RED CELL DISTRI WIDTH 16.9 % (0-14.5); WHITE BLOOD COUNT 11.1 10*3/uL (4.8-10.8)
[2017-10-25 01:34] LABS: ALBUMIN 2.7 gm/dl (3.1-4.5); CREATININE 1.55 mg/dL (0.55-1.02); POTASSIUM 3.8 mmol/L (3.5-5.1); TOTAL PROTEIN 6.5 gm/dL (6.4-8.2)
[2017-10-25 01:52] LABS: BILIRUBIN NEGATIVE (NEGATIVE); BLOOD TRACE-INTACT (NEGATIVE); CLARITY CLEAR (CLEAR); COLOR YELLOW (YELLOW); GLUCOSE NEGATIVE (NEGATIVE); KETONE NEGATIVE (NEGATIVE); LEUKO ESTERASE 3+ (NEGATIVE); NITRITE NEGATIVE (NEGATIVE); UROBILINOGEN 0.2 E.U./dl (0.2-1.0)
[2017-10-25 02:00] LABS: EPITHELIAL CELLS 30-35
[2017-10-25 02:01] LABS: BACTERIA TRACE; WBC 31-40 wbc/hpf (0-5)
[2017-10-25 03:55] VITALS: BP 113/49
== END 2017-10-25 03:30 | disposition short-term general hospital (02) ==
LOC: ED 00:26
PROVIDERS: Emergency Medicine
DX: A41.9 Sepsis, unspecified organism (principal)

== ENCOUNTER → 2017-12-21 | Outpatient (CLI) | payer OTHER | END | disposition home or self-care (01) | LOC: RAD 11:35 | DX: M79.671 Pain in right foot (principal) ==

== ENCOUNTER 2018-04-19 02:43 | Emergency (ER) | payer MEDICARE, MEDICAID ==
[~2018-04-19] VITALS: Ht 167.6 cm; Wt 81.6 kg
[~2018-04-19 02:43] MED LIST changes: +SEPTDS PO; +TYLENOL EXTRA500 MG PO
[2018-04-19 03:25] LABS: BASO # 0.1 10*3/uL (0.0-0.1); BASO % 0.5 % (0.0-1.0); EOS # 0.1 10*3/uL (0.0-0.4); EOS % 0.8 % (1.0-4.0); HEMATOCRIT 32.8 % (37.0-47.0); HEMOGLOBIN 9.8 g/dl (12.0-16.0); LYMPH # 0.6 10*3/uL (1.3-4.4); LYMPH % 5.9 % (27.0-41.0); MEAN CELL VOLUME 76.3 fl (81.0-99.0); MEAN CORPUSCULAR HGB 22.8 pg (27.0-31.0); MEAN CORPUSCULAR HGB CONC 29.9 g/dl (33.0-37.0); MEAN PLATELET VOLUME 9.8 fl (9.6-12.3); MONO # 0.4 10*3/uL (0.1-1.0); MONO % 4.1 % (3.0-9.0); NEUT # 9.4 10*3/uL (2.3-7.9); NEUT % 86.6 % (47.0-73.0); PLATELET COUNT AUTOMATED 231 10*3/uL (130-400); RED CELL DISTRI WIDTH 15.9 % (0-14.5); WHITE BLOOD COUNT 10.8 10*3/uL (4.8-10.8)
[2018-04-19 03:40] LABS: ALBUMIN 2.7 gm/dl (3.1-4.5); CREATININE 1.35 mg/dL (0.55-1.02); POTASSIUM 3.9 mmol/L (3.5-5.1); TOTAL PROTEIN 6.9 gm/dL (6.4-8.2)
[2018-04-19 04:55] LABS: BILIRUBIN NEGATIVE (NEGATIVE); BLOOD NEGATIVE (NEGATIVE); CLARITY SL CLOUDY (CLEAR); COLOR YELLOW (YELLOW); GLUCOSE NEGATIVE (NEGATIVE); KETONE NEGATIVE (NEGATIVE); LEUKO ESTERASE 1+ (NEGATIVE); NITRITE POSITIVE (NEGATIVE); UROBILINOGEN 0.2 E.U./dl (0.2-1.0)
[2018-04-19 05:01] LABS: BACTERIA 2+; EPITHELIAL CELLS 40-45; WBC 21-30 wbc/hpf (0-5)
[2018-04-19 06:40] VITALS: BP 99/61
[2018-04-19] MEDS ORDERED: AUGMENTIN 875875 MG PO (07:01)
== END 2018-04-19 07:10 | disposition home or self-care (01) ==
LOC: ED 02:43
PROVIDERS: Emergency Medicine
DX: N39.0 Urinary tract infection, site not specified (principal); Z79.899 Other long term (current) drug therapy

== ENCOUNTER → 2018-08-07 | Outpatient (CLI) | payer OTHER ==
[~2018-08-07] MED LIST changes: +AUGMENTIN 875875 MG PO; +FEROSUL325 MG PO; +ORENCIA CL125 MG/1 M SQ; +PANTOPRAZOLE SO40 MG PO
== END | disposition home or self-care (01) ==
LOC: LAB 11:55
DX: R82.71 Bacteriuria (principal)

== ENCOUNTER 2019-01-08 23:07 | Inpatient (IN) | payer OTHER ==
[~2019-01-08] VITALS: Ht 162.5 cm; Wt 74.8 kg
--- NOTE | ~2019-01-08 | EKG ---
[place], [place] ELECTROCARDIOGRAM REPORT NAME: BRIANA DECKER UNIT #: [id number] ROOM: 503 DOCTOR: JEANMARIE DRAFT REPORT BIRTHDATE: [birth year] [facility] Test Date: 2019-01-08 Test Time: 23:53:46 Pat Name: BRIANA DECKER Department: Room: 503 Gender: F [place]: SS RESP : 1955 Requested By: ALYSIA MELISSA PA-C Order Number: [id number] Reading MD: Pollo Rogers MD Measurements Intervals [place] Rate: 118 P: 58 VA: 145 QRS: 65 QRSD: 94 T: 15 QT: 319 QTc: 448 Interpretive Statements Sinus tachycardia Electronically Signed On 01-09-2019 12:50:28 PDT by Pollo Rogers MD CM:EKGRPT:ELECTROCARDIOGRAM REPORT 2353 [id number] ALYSIA MELISSA PA-C EPIPHANY DRAFT REPORT ALYSIA MELISSA PA-C
--- NOTE | ~2019-01-08 | PR ---
[place], [place] PROGRESS NOTE NAME: BIRANA DECKRE [facility] #: [id number] UNIT #: [id number] ROOM: 503 DOCTOR: RACQUEL YOUNG MD BIRTHDATE: [birth year] DOS: 01/10/2019 SUBJECTIVE: The patient is doing well, but has developed some discomfort in her abdomen around the suprapubic area. She denies having any chest pains or palpitations. PHYSICAL EXAMINATION: GENERAL: Her face is quite flushed. VITAL SIGNS: Blood pressure is 139/69, pulse is 77, respirations 18, temperature 98.0. LUNGS: Diminished breath sounds. Clear. HEART: Regular. ABDOMEN: Obese, soft, some minimal tenderness in the left lower quadrant. EXTREMITIES: Without any edema. LABORATORY DATA: Blood cultures preliminary shows no bacterial growth. White cell count was 10.6. BMP: Glucose 160, BUN 13, creatinine 0.91. Electrolytes were normal. Last few blood sugar readings were 130 yesterday and 160 this morning. ASSESSMENT AND PLAN: 1. Fever, elevated white cell count with sepsis pattern, most likely has an underlying urinary tract infection. 2. The patient is on biologic agents for rheumatoid arthritis, increases risk for infections. We will check a CT of the abdomen and pelvis this morning. 3. Acute kidney injury, which is possibly from prerenal azotemia, which is resolved or sepsis with shock kidney. 4. Elevated blood sugars. Sugars have been checked twice daily. RACQUEL YOUNG MD CM:PNTRANS [id number] RACQUEL YOUNG MD 01/11/19 0022 interface
--- NOTE | ~2019-01-08 | DS ---
[place], [place] DISCHARGE SUMMARY NAME: BRIANA DECKER [facility] #: [id number] UNIT #: [id number] ROOM: 503 DOCTOR: RACQUEL YOUNG MD BIRTHDATE: [birth year] DOS: 01/11/2019 DIAGNOSES: 1. Acute kidney injury. 2. History of right nephrectomy, avoid nephrotoxic medications. 3. Urinary tract infection with sepsis pattern, sepsis ruled out with negative cultures. Urine culture showing gram-negative bacteria, identification not available yet. 4. Hyperglycemia. Hemoglobin A1c 6.1. 5. Psoriatic arthritis. 6. Rheumatoid arthritis. 7. History of angiomyolipoma, status post left nephrectomy. 8. Chronic migraine headaches. DISCHARGE MEDICATIONS: Ceftin 250 mg twice a day for 5 days, hydroxychloroquine 200 b.i.d., breathing treatments q. 4 hours p.r.n., iron 325 daily, gabapentin 300 t.i.d., Protonix 40 daily, prednisone 5 b.i.d. and Orencia injections once a week, which is advised to hold this week. HOSPITAL COURSE: This patient is 63 years old, comes in with complaints of shaking chills, abdominal pain, low-grade fever, dysuria and increased frequency of urination. The patient was admitted, was placed on antibiotics and IV fluids. She was noted to have acute kidney injury. The patient also takes chronic steroids and her blood sugars have been elevated. Hemoglobin A1c was 6.1. Advised a low carbohydrate diet. Rheumatoid arthritis is under control right now. She does not have a flareup. CT of the abdomen and pelvis was done because of continued complaints of abdominal pain. This did not show any pathology, other than renal cyst and angiomyolipoma. Her kidney functions improved with IV fluids. Urine culture showed gram-negative bacteria, identification not available. Blood culture shows no bacterial growth. The patient is stable. The plan is to discharge her to home today to follow up as an outpatient. [place], [place] DISCHARGE SUMMARY NAME: BRIANA DECKER UNIT #: [id number] ROOM: 503 DOCTOR: RACQUEL YOUNG MD BIRTHDATE: [birth year] RACQUEL YOUNG MD CM:MELLY 5 [phone] RACQUEL YOUNG MD 01/11/191926 interface
--- NOTE | ~2019-01-08 | PR ---
[place], [place] PROGRESS NOTE NAME: BRIANA DECKER [facility] #: [id number] UNIT #: [id number] ROOM: 503 DOCTOR: RACQUEL YOUNG MD BIRTHDATE: [birth year] DOS: 01/11/2019 SUBJECTIVE: The patient is doing fine without any complaints this morning. OBJECTIVE: VITAL SIGNS: Blood pressure is 134/76, pulse of 92, respirations 18, temperature 98.8. LUNGS: Clear. HEART: Regular. ABDOMEN: Obese, soft. EXTREMITIES: Without any edema. CT of the abdomen and pelvis was unremarkable other than a renal cyst, left nephrectomy. ASSESSMENT AND PLAN: 1. Urinary tract infection with elevated white cell count, fever and sepsis pattern. Sepsis has been ruled out with negative blood cultures. CT of the abdomen and pelvis as dictated above. The patient is stable, the plan is to discharge her to home today. Urine culture is growing gram-negative bacteria, but still no identification, placed on Ceftin upon discharge. 2. Rheumatoid arthritis, on disease modifying agents. Advised the patient not to take her biologic Orencia injections that she gets on Tuesday this week because of the ongoing infectious process. 3. Acute kidney injury, possibly prerenal. Kidney functions have stabilized and because of a history of nephrectomy, she should avoid all nephrotoxic medications. RACQUEL YOUNG MD CM:PNTRANS [id number] RACQUEL YOUNG MD 01/12/19 0001 interface
--- NOTE | ~2019-01-08 | WRIGHTHP ---
[place], [place] PATIENT HISTORY AND PHYSICAL EXAM NAME: BRIANA DECKER [facility] #: [id number] UNIT #: [id number] ROOM: 503 DOCTOR: RACQUEL YOUNG MD BIRTHDATE: [birth year] DOS: 01/09/2019 HISTORY OF PRESENT ILLNESS: This patient is 63 years old. The patient states that she has had increasing fever for the last couple of days with some lower abdominal discomfort and frequency of urination and dysuria. She finally decided to come into the Emergency Room where she was evaluated and was diagnosed with UTI and was admitted. She denies having any chest pains or palpitations, does not have any nausea and emesis. PAST MEDICAL HISTORY: Significant for: 1. Rheumatoid arthritis. She is on biologic agents. 2. History of nephrectomy, left angiomyolipoma. 3. Psoriatic arthritis. 4. Chronic migraine headaches. SOCIAL HISTORY: Nonsmoker, does not use any alcohol. Lives at home with . MEDICATIONS: Iron 325, gabapentin 300 t.i.d., hydroxychloroquine 200 b.i.d., Protonix 40 daily, prednisone 5 b.i.d. and Orencia injections. PHYSICAL EXAMINATION: GENERAL: The patient is awake and alert and oriented, in no major distress this morning. VITAL SIGNS: Graphic trend shows a pressure of 132/70, pulse of 76, respirations 14, afebrile. NECK: Supple. No lymph nodes. HEENT: Unremarkable. LUNGS: Diminished breath sounds. Clear. HEART: Regular. ABDOMEN: Obese, soft, nontender. EXTREMITIES: Without any edema. ASSESSMENT AND PLAN: 1. The patient admitted with fever, elevated white cell count 19,000 with dysuria, most likely has underlying urinary tract infection, rule out sepsis. Cultures are pending. The patient is placed on IV antibiotics and IV fluids. Repeat CBC in the morning. 2. Rheumatoid arthritis, on biologic agents. Advised the patient to hold off since she has an underlying significant infection, but the patient already took a shot yesterday. We will restart hydroxychloroquine. 3. Chronic peripheral neuropathy. Restart gabapentin. 4. Acute kidney injury, possibly from acute infection and prerenal azotemia. Repeat the labs, again IV fluids have been ordered. 5. Hyperglycemia, possibly from chronic steroid usage. Blood sugars will be checked. [place], [place] PATIENT HISTORY AND PHYSICAL EXAM NAME: BRIANA DECKER UNIT #: [id number] ROOM: [facility] DOCTOR: RACQUEL YOUNG MD BIRTHDATE: [birth year] RACQUEL YOUNG MD CM:HISPHYS:PATIENT HISTORY AND PHYSICAL EXAMINATION 0 4 RACQUEL YOUNG MD 01/09/19912 interface
[~2019-01-08 23:07] MED LIST changes: -FEROSUL325 MG PO; -ORENCIA CL125 MG/1 M SQ; -PANTOPRAZOLE SO40 MG PO
[2019-01-08 23:09] VITALS: BP 128/66
[2019-01-08 23:44] LABS: BASO # 0.1 10*3/uL (0.0-0.1); BASO % 0.5 % (0.0-1.0); EOS # 0.1 10*3/uL (0.0-0.4); EOS % 0.5 % (1.0-4.0); HEMATOCRIT 44.2 % (37.0-47.0); LYMPH # 1.2 10*3/uL (1.3-4.4); LYMPH % 6.2 % (27.0-41.0); MEAN CELL VOLUME 89.3 fl (81.0-99.0); MEAN CORPUSCULAR HGB 28.3 pg (27.0-31.0); MEAN CORPUSCULAR HGB CONC 31.7 g/dl (33.0-37.0); MONO # 1.4 10*3/uL (0.1-1.0); MONO % 7.2 % (3.0-9.0); NEUT # 16.4 10*3/uL (2.3-7.9); NEUT % 84.7 % (47.0-73.0); PLATELET COUNT AUTOMATED 375 10*3/uL (130-400); RED BLOOD COUNT 4.95 10*6/uL (4.10-5.10); RED CELL DISTRI WIDTH 16.7 % (0-14.5); WHITE BLOOD COUNT 19.3 10*3/uL (4.8-10.8)
[2019-01-08 23:56] LABS: ACT PARTIAL THROMBO TIME 23.4 SECONDS (20.0-32.1)
[2019-01-09] VITALS (7 sets, daily range): BP systolic 104–130; BP diastolic 52–90
[2019-01-09 00:03] LABS: ALBUMIN 3.1 gm/dl (3.1-4.5); ALKALINE PHOSPHATASE 153 U/L (45-117); BUN 19 mg/dl (7-24); CHLORIDE 103 mmol/L (98-107); CREATININE 1.22 mg/dL (0.55-1.02); LIPASE 196 U/L (73-393); POTASSIUM 4.1 mmol/L (3.5-5.1); SGOT/AST 19 IU/L (3-35); SGPT/ALT 21 U/L (12-78); SODIUM 138 mmol/L (136-145); TOTAL PROTEIN 7.6 gm/dL (6.4-8.2)
[2019-01-09 00:04] LABS: TROPONIN I < 0.015 ng/ml (<0.045)
[2019-01-09 00:10] LABS: BILIRUBIN NEGATIVE (NEGATIVE); BLOOD TRACE-INTACT (NEGATIVE); CLARITY SL CLOUDY (CLEAR); COLOR YELLOW (YELLOW); GLUCOSE NEGATIVE (NEGATIVE); KETONE NEGATIVE (NEGATIVE); LEUKO ESTERASE TRACE (NEGATIVE); NITRITE POSITIVE (NEGATIVE); SPECIFIC GRAVITY >= 1.030 (1.005-1.030)
--- NOTE | 2019-01-09 00:13 | NUR ---
PT TO IMAGING
[2019-01-09 00:24] LABS: BACTERIA 3+
[2019-01-09] MEDS ORDERED: PANTOPRAZOLE SO40 MG PO (00:51)
[2019-01-09] MEDS ORDERED: FEROSUL325 MG PO (00:51)
[2019-01-09] MEDS ORDERED: PREDNISONE5 MG PO (00:52)
[2019-01-09] MEDS ORDERED: ORENCIA CL125 MG/1 M SQ (00:52)
--- NOTE | 2019-01-09 01:30 | NUR ---
FULL CODE A 63 year old female, admitted to 5E, under the services of RACQUEL Finney MD with a diagnosis of ACUTE KIDNEY INJURY, UTI, AND SEPSIS. Chief complaint is MULTIPLE COMPLAINTS. Patient arrived via stretcher from ER. Monitor applied. Initial assessment completed. Vital signs taken and recorded. RACQUEL FINNEY MD notified of admission to the unit. Orders received. See assessment for past medical history, medications and allergies. Patient and/or family oriented to unit. visitation policy reviewed. Clothing/patient valuable form completed. JORGE L PRICE
--- NOTE | 2019-01-09 01:42 | NUR ---
ADMISSION ORDERS RECIEVED FROM DR. YOUNG.
--- NOTE | 2019-01-09 09:00 | NUR ---
Automobile Upholsterer in to talk to patient. Patient states lives at home with her and her daughter. There are 25 steps in the home. Physician: Dr. Oscar Cao Pharmacy: [facility] Home health services: none Patient's level of ADLs: INDEPENDENT Patient has working utilities: yes DME: none Follow-up physician's appointment after d/c: will be made prior to discharge Does patient want to access PORTAL?: no Discharge plan discussed with patient. She lives at home with her . She is independent in her ADLs and ambulation. Discussed home health care services and she denies any home needs. When medically stable she will be discharged to home. will transport on discharge. BREE CARROLL
--- NOTE | 2019-01-09 20:41 | NUR ---
DR. PETERSEN CALLED AT PATIENT REQUEST FOR TYLENOL FOR C/O HEADACHE.
--- NOTE | 2019-01-09 20:55 | NUR ---
PATIENT MEDICATED WITH TYLENOL PER PRN ORDER FOR C/O HEADACHE. RATED PAIN A 7-8/10 WITH 10 BEING THE WORST. SEE EMAR. REINFORCED USE OF CALL LIGHT.
[2019-01-10] VITALS: BP 139/69
--- NOTE | 2019-01-10 02:34 | NUR ---
24 HR chart check completed.
[2019-01-10 05:58] LABS: BUN 13 mg/dl (7-24); CHLORIDE 109 mmol/L (98-107); CREATININE 0.91 mg/dL (0.55-1.02); POTASSIUM 4.2 mmol/L (3.5-5.1); SODIUM 142 mmol/L (136-145)
[2019-01-10 06:13] LABS: BASO % 0.3 % (0.0-1.0); EOS # 0.1 10*3/uL (0.0-0.4); EOS % 0.5 % (1.0-4.0); HEMATOCRIT 35.7 % (37.0-47.0); LYMPH # 0.8 10*3/uL (1.3-4.4); LYMPH % 7.2 % (27.0-41.0); MEAN CELL VOLUME 91.5 fl (81.0-99.0); MEAN CORPUSCULAR HGB 28.2 pg (27.0-31.0); MEAN CORPUSCULAR HGB CONC 30.8 g/dl (33.0-37.0); MEAN PLATELET VOLUME 9.9 fl (9.6-12.3); MONO # 0.7 10*3/uL (0.1-1.0); MONO % 6.7 % (3.0-9.0); NEUT % 84.5 % (47.0-73.0); RED CELL DISTRI WIDTH 16.4 % (0-14.5); WHITE BLOOD COUNT 10.6 10*3/uL (4.8-10.8)
[2019-01-10 06:14] LABS: PLATELET COUNT AUTOMATED 226 10*3/uL (130-400)
[2019-01-10 08:00] VITALS: BP 128/72
[2019-01-10 12:00] VITALS: BP 122/72
[2019-01-10 16:00] VITALS: BP 136/81
[2019-01-10 20:00] VITALS: BP 142/78
[2019-01-11] VITALS: BP 134/76
[2019-01-11 07:25] LABS: BASO % 0.4 % (0.0-1.0); EOS # 0.1 10*3/uL (0.0-0.4); EOS % 1.3 % (1.0-4.0); HEMATOCRIT 36.5 % (37.0-47.0); HEMOGLOBIN 11.1 g/dl (12.0-16.0); LYMPH % 9.7 % (27.0-41.0); MEAN CELL VOLUME 92.2 fl (81.0-99.0); MEAN CORPUSCULAR HGB CONC 30.4 g/dl (33.0-37.0); MEAN PLATELET VOLUME 10.1 fl (9.6-12.3); MONO # 0.7 10*3/uL (0.1-1.0); MONO % 6.6 % (3.0-9.0); NEUT # 8.3 10*3/uL (2.3-7.9); NEUT % 81.4 % (47.0-73.0); PLATELET COUNT AUTOMATED 248 10*3/uL (130-400); RED BLOOD COUNT 3.96 10*6/uL (4.10-5.10); RED CELL DISTRI WIDTH 16.3 % (0-14.5); WHITE BLOOD COUNT 10.2 10*3/uL (4.8-10.8)
[2019-01-11 07:44] LABS: BUN 10 mg/dl (7-24); CHLORIDE 107 mmol/L (98-107); CREATININE 0.89 mg/dL (0.55-1.02); POTASSIUM 4.1 mmol/L (3.5-5.1); SODIUM 143 mmol/L (136-145)
[2019-01-11 08:00] VITALS: BP 130/70
[2019-01-11] MEDS ORDERED: CEFUROXIME AXE250 MG PO (08:06)
--- NOTE | 2019-01-11 09:20 | NUR ---
Spoke with Dr. Ogden regarding UC sensitivies in computer. Asked to fax report to her office to review and she will add antibiotic as needed.
--- NOTE | 2019-01-11 09:43 | NUR ---
Spoke with Dr. Ogden, states she is going to change antibiotic to bactrim. Reviewed bun and creatinine with Dr. Ogden and pt pharmacy. States she will call into pt pharmacy and pt to have kidney function checked in 7 days.
--- NOTE | 2019-01-11 09:50 | NUR ---
Discharge instructions reviewed with patient. Patient receptive and verbalizes understanding. Follow-up care arranged. Written instructions given to patient. Notified pt that Dr. Ogden would be changing antibiotic to bactrim. Verbalized understanding.
--- NOTE | 2019-01-11 11:00 | NUR ---
Pt discharged in care of with belongings and dc instructions.
== END 2019-01-11 11:00 | disposition home or self-care (01) | DRG 683 ==
LOC: ED 23:07 → 5E 01-09 00:41 → EDHOLD 01-09 00:41 → 5E 01-09 01:18
PROVIDERS: Physician Assistant; ADMIT Internal Medicine
DX: N17.9 Acute kidney failure, unspecified (principal); N30.01 Acute cystitis with hematuria; G62.9 Polyneuropathy, unspecified; M06.9 Rheumatoid arthritis, unspecified; R73.9 Hyperglycemia, unspecified; B96.89 Other specified bacterial agents as the cause of diseases classified elsewhere; G43.909 Migraine, unspecified, not intractable, without status migrainosus; L40.50 Arthropathic psoriasis, unspecified; Z79.52 Long term (current) use of systemic steroids; Z90.5 Acquired absence of kidney; Z82.49 Family history of ischemic heart disease and other diseases of the circulatory system; Z80.8 Family history of malignant neoplasm of other organs or systems

== ENCOUNTER → 2019-01-18 | Outpatient (CLI) | payer OTHER ==
[~2019-01-18] MED LIST changes: +FEROSUL325 MG PO; +ORENCIA CL125 MG/1 M SQ; +PANTOPRAZOLE SO40 MG PO
== END | disposition home or self-care (01) ==
LOC: LAB 14:27
DX: M1A.00X0 Idiopathic chronic gout, unspecified site, without tophus (tophi) (principal)

== ENCOUNTER → 2019-03-06 | Outpatient (CLI) | payer OTHER ==
[2019-03-06 16:16] LABS: BUN 15 mg/dl (7-24); CHLORIDE 106 mmol/L (98-107); CREATININE 1.05 mg/dL (0.55-1.02); POTASSIUM 3.6 mmol/L (3.5-5.1); SODIUM 141 mmol/L (136-145)
== END | disposition home or self-care (01) ==
LOC: LAB 14:19
PROVIDERS: Internal Medicine
DX: I10 Essential (primary) hypertension (principal)

== ENCOUNTER → 2019-03-29 | Outpatient (CLI) | payer OTHER ==
[2019-03-29 16:01] LABS: BUN 15 mg/dl (7-24); CHLORIDE 104 mmol/L (98-107); CREATININE 1.09 mg/dL (0.55-1.02); POTASSIUM 3.5 mmol/L (3.5-5.1); SODIUM 140 mmol/L (136-145)
== END | disposition home or self-care (01) ==
LOC: LAB 15:11
PROVIDERS: Internal Medicine
DX: N18.9 Chronic kidney disease, unspecified (principal)

== ENCOUNTER 2019-09-09 14:17 | Inpatient (IN) | payer OTHER ==
[~2019-09-09] VITALS: Ht 167.6 cm; Wt 79.0 kg
[2019-09-09 14:20] VITALS: BP 116/90
[2019-09-09 15:30] VITALS: BP 114/88
[2019-09-09 15:38] LABS: HEMATOCRIT 41.1 % (37.0-47.0); MEAN CELL VOLUME 86.9 fl (81.0-99.0); MEAN CORPUSCULAR HGB 27.5 pg (27.0-31.0); MEAN CORPUSCULAR HGB CONC 31.6 g/dl (33.0-37.0); PLATELET COUNT AUTOMATED 208 10*3/uL (130-400); RED BLOOD COUNT 4.73 10*6/uL (4.10-5.10); RED CELL DISTRI WIDTH 14.8 % (0-14.5); WHITE BLOOD COUNT 28.1 10*3/uL (4.8-10.8)
[2019-09-09 16:02] LABS: BASOPHILS 1 % (0-1); PLATELET SUFFICIENCY NORMAL (NORMAL); TOTAL CELLS COUNTED 100 #CELLS
[2019-09-09 16:03] LABS: ACT PARTIAL THROMBO TIME 25.9 SECONDS (20.0-32.1); INTERNATIONAL NORM RATIO 1.1 (2.0-3.5)
[2019-09-09 16:36] LABS: ALBUMIN 2.4 gm/dl (3.1-4.5); ALKALINE PHOSPHATASE 140 U/L (45-117); BUN 16 mg/dl (7-24); CHLORIDE 102 mmol/L (98-107); CPK 20 U/L (26-192); CREATININE 1.32 mg/dL (0.55-1.02); LDH 260 U/L (84-246); POTASSIUM 4.3 mmol/L (3.5-5.1); SGOT/AST 17 IU/L (3-35); SGPT/ALT 24 U/L (12-78); SODIUM 133 mmol/L (136-145); TOTAL PROTEIN 7.2 gm/dL (6.4-8.2)
[2019-09-09 16:37] LABS: TROPONIN I < 0.015 ng/ml (<0.045)
[2019-09-09 16:45] VITALS: BP 114/82
[2019-09-09 17:09] LABS: URINE AMPHETAMINES < 1000 (1000ng/ml); URINE BARBITURATES < 200 (200ng/ml); URINE BENZODIAZEPINES < 200 (200ng/ml); URINE CANNABINOIDS (THC) < 50 (50ng/ml); URINE COCAINE < 300 (300ng/ml); URINE METHADONE < 300 (300ng/ml); URINE OPIATES < 300 (300ng/ml); URINE PHENCYCLIDINE < 25 (25ng/ml)
[2019-09-09 17:16] LABS: ABG BASE EXCESS 0.6 mmol/L (-2.0-2.0); ARTERIAL BLOOD GAS PH 7.492 (7.35-7.45)
[2019-09-09] MEDS ORDERED: CELEBREX100 MG PO (17:21)
[2019-09-09 17:22] LABS: BACTERIA TRACE; BILIRUBIN 1+ (NEGATIVE); BLOOD NEGATIVE (NEGATIVE); CLARITY CLEAR (CLEAR); COLOR YELLOW (YELLOW); GLUCOSE NEGATIVE (NEGATIVE); KETONE 2+ (NEGATIVE); LEUKO ESTERASE NEGATIVE (NEGATIVE); NITRITE NEGATIVE (NEGATIVE); RBC 0-2 rbc/hpf (0-2); SPECIFIC GRAVITY 1.025 (1.005-1.030); UROBILINOGEN 0.2 E.U./dl (0.2-1.0); WBC 0-2 wbc/hpf (0-5)
[2019-09-09] MEDS ORDERED: AMOXICILLIN500 M2 PO (17:22)
[2019-09-09 17:23] LABS: MUCOUS TRACE
[2019-09-09 17:43] VITALS: BP 128/67
[2019-09-09] MEDS ORDERED: CELECOXIB200 M1 PO (17:46)
[2019-09-09] MEDS ORDERED: AUGMENTIN 875875 MG PO (17:49)
[2019-09-09 20:00] VITALS: BP 118/72
[2019-09-10] VITALS: BP 133/73
[2019-09-10 06:10] LABS: HEMATOCRIT 37.7 % (37.0-47.0); MEAN CELL VOLUME 87.5 fl (81.0-99.0); MEAN CORPUSCULAR HGB 27.4 pg (27.0-31.0); MEAN CORPUSCULAR HGB CONC 31.3 g/dl (33.0-37.0); MEAN PLATELET VOLUME 9.8 fl (9.6-12.3); PLATELET COUNT AUTOMATED 188 10*3/uL (130-400); RED BLOOD COUNT 4.31 10*6/uL (4.10-5.10); RED CELL DISTRI WIDTH 14.5 % (0-14.5); WHITE BLOOD COUNT 15.9 10*3/uL (4.8-10.8)
[2019-09-10 06:25] LABS: BUN 15 mg/dl (7-24); CHLORIDE 110 mmol/L (98-107); POTASSIUM 4.3 mmol/L (3.5-5.1); SODIUM 139 mmol/L (136-145)
[2019-09-10 06:26] LABS: CREATININE 0.98 mg/dL (0.55-1.02)
[2019-09-10 07:06] LABS: PLATELET SUFFICIENCY NORMAL (NORMAL); POLYCHROMASIA SLIGHT; TOTAL CELLS COUNTED 100 #CELLS
[2019-09-10 08:21] VITALS: BP 140/86
[2019-09-10 20:00] VITALS: BP 141/88
[2019-09-11] VITALS: BP 122/64
[2019-09-11 05:37] LABS: ALKALINE PHOSPHATASE 101 U/L (45-117); BUN 16 mg/dl (7-24); CHLORIDE 110 mmol/L (98-107); CREATININE 1.02 mg/dL (0.55-1.02); POTASSIUM 3.7 mmol/L (3.5-5.1); SGOT/AST 16 IU/L (3-35); SGPT/ALT 20 U/L (12-78); SODIUM 139 mmol/L (136-145); TOTAL PROTEIN 6.2 gm/dL (6.4-8.2)
[2019-09-11 06:05] LABS: HEMATOCRIT 35.7 % (37.0-47.0); MEAN CORPUSCULAR HGB 27.4 pg (27.0-31.0); MEAN CORPUSCULAR HGB CONC 30.8 g/dl (33.0-37.0); PLATELET COUNT AUTOMATED 165 10*3/uL (130-400); RED BLOOD COUNT 4.01 10*6/uL (4.10-5.10); RED CELL DISTRI WIDTH 14.6 % (0-14.5); WHITE BLOOD COUNT 17.2 10*3/uL (4.8-10.8)
[2019-09-11 06:44] LABS: PLATELET SUFFICIENCY NORMAL (NORMAL); TOTAL CELLS COUNTED 100 #CELLS
[2019-09-11 12:00] VITALS: BP 130/67
[2019-09-11 16:00] VITALS: BP 126/86
[2019-09-11 20:00] VITALS: BP 111/68
[2019-09-12] VITALS: BP 154/82
[2019-09-12 06:01] LABS: BUN 9 mg/dl (7-24); CHLORIDE 110 mmol/L (98-107); CREATININE 0.94 mg/dL (0.55-1.02); POTASSIUM 3.5 mmol/L (3.5-5.1); SGOT/AST 21 IU/L (3-35); SGPT/ALT 19 U/L (12-78); SODIUM 140 mmol/L (136-145)
[2019-09-12 06:02] LABS: ALKALINE PHOSPHATASE 88 U/L (45-117)
[2019-09-12 06:25] LABS: MEAN CELL VOLUME 87.8 fl (81.0-99.0); MEAN CORPUSCULAR HGB 27.1 pg (27.0-31.0); MEAN CORPUSCULAR HGB CONC 30.8 g/dl (33.0-37.0); MEAN PLATELET VOLUME 10.5 fl (9.6-12.3); PLATELET COUNT AUTOMATED 152 10*3/uL (130-400); RED CELL DISTRI WIDTH 14.3 % (0-14.5); WHITE BLOOD COUNT 16.6 10*3/uL (4.8-10.8)
[2019-09-12 07:42] LABS: PLATELET SUFFICIENCY NORMAL (NORMAL); TOTAL CELLS COUNTED 100 #CELLS; TOXIC GRANULATION SLIGHT
[2019-09-12 08:00] VITALS: BP 141/82
[2019-09-12 12:00] VITALS: BP 156/88
[2019-09-12 16:00] VITALS: BP 120/47
[2019-09-12 20:00] VITALS: BP 142/70
[2019-09-13] VITALS: BP 138/68
[2019-09-13 06:05] LABS: HEMATOCRIT 35.9 % (37.0-47.0); MEAN CELL VOLUME 87.8 fl (81.0-99.0); MEAN CORPUSCULAR HGB 27.1 pg (27.0-31.0); MEAN CORPUSCULAR HGB CONC 30.9 g/dl (33.0-37.0); MEAN PLATELET VOLUME 9.8 fl (9.6-12.3); PLATELET COUNT AUTOMATED 159 10*3/uL (130-400); RED BLOOD COUNT 4.09 10*6/uL (4.10-5.10); RED CELL DISTRI WIDTH 14.5 % (0-14.5)
[2019-09-13 06:19] LABS: ALKALINE PHOSPHATASE 97 U/L (45-117); BUN 6 mg/dl (7-24); CHLORIDE 106 mmol/L (98-107); CREATININE 0.97 mg/dL (0.55-1.02); POTASSIUM 3.6 mmol/L (3.5-5.1); SGOT/AST 20 IU/L (3-35); SGPT/ALT 17 U/L (12-78); SODIUM 138 mmol/L (136-145); TOTAL PROTEIN 6.2 gm/dL (6.4-8.2)
[2019-09-13 07:19] LABS: TOTAL CELLS COUNTED 100 #CELLS
[2019-09-13 07:20] LABS: PLATELET SUFFICIENCY NORMAL (NORMAL); TOXIC GRANULATION SLIGHT
[2019-09-13 08:00] VITALS: BP 162/82
[2019-09-13 09:39] LABS: BILIRUBIN NEGATIVE (NEGATIVE); BLOOD 1+ (NEGATIVE); CLARITY CLEAR (CLEAR); COLOR YELLOW (YELLOW); GLUCOSE NEGATIVE (NEGATIVE); KETONE NEGATIVE (NEGATIVE); LEUKO ESTERASE NEGATIVE (NEGATIVE); NITRITE NEGATIVE (NEGATIVE); PH 6.5 (5.0-9.0); UROBILINOGEN 0.2 E.U./dl (0.2-1.0)
[2019-09-13 12:00] VITALS: BP 164/80
[2019-09-13 16:00] VITALS: BP 143/74
[2019-09-13 20:00] VITALS: BP 102/53
[2019-09-14] VITALS: BP 127/76
[2019-09-14 06:04] LABS: HEMATOCRIT 37.2 % (37.0-47.0); MEAN CELL VOLUME 86.7 fl (81.0-99.0); MEAN CORPUSCULAR HGB CONC 31.2 g/dl (33.0-37.0); PLATELET COUNT AUTOMATED 166 10*3/uL (130-400); RED BLOOD COUNT 4.29 10*6/uL (4.10-5.10); RED CELL DISTRI WIDTH 14.6 % (0-14.5); WHITE BLOOD COUNT 15.5 10*3/uL (4.8-10.8)
[2019-09-14 07:07] LABS: BASOPHILS 1 % (0-1); PLATELET SUFFICIENCY NORMAL (NORMAL); POLYCHROMASIA SLIGHT; TOTAL CELLS COUNTED 100 #CELLS
[2019-09-14 07:08] LABS: TOXIC GRANULATION SLIGHT
[2019-09-14 08:00] VITALS: BP 110/66
[2019-09-14 12:00] VITALS: BP 103/64
[2019-09-14 16:00] VITALS: BP 104/59
[2019-09-14 20:00] VITALS: BP 108/75
[2019-09-15] VITALS: BP 101/59
[2019-09-15 12:00] VITALS: BP 108/66
[2019-09-15 16:00] VITALS: BP 110/64
[2019-09-15 20:00] VITALS: BP 110/70
[2019-09-16] VITALS: BP 130/78
[2019-09-16 08:00] VITALS: BP 120/78; BP 122/62
[2019-09-16 12:00] VITALS: BP 125/77
[2019-09-16 16:00] VITALS: BP 138/79
[2019-09-16 20:00] VITALS: BP 124/78
[2019-09-17] VITALS: BP 139/84
[2019-09-17 06:01] LABS: HEMATOCRIT 35.9 % (37.0-47.0); MEAN CELL VOLUME 87.3 fl (81.0-99.0); MEAN CORPUSCULAR HGB 27.3 pg (27.0-31.0); MEAN CORPUSCULAR HGB CONC 31.2 g/dl (33.0-37.0); MEAN PLATELET VOLUME 10.1 fl (9.6-12.3); PLATELET COUNT AUTOMATED 198 10*3/uL (130-400); RED BLOOD COUNT 4.11 10*6/uL (4.10-5.10); WHITE BLOOD COUNT 13.9 10*3/uL (4.8-10.8)
[2019-09-17 06:15] LABS: CREATININE 1.28 mg/dL (0.55-1.02)
[2019-09-17 06:27] LABS: ATYPICAL LYMPHS 4 % (0-0); PLASMA CELL 1 % (0-0); PLATELET SUFFICIENCY NORMAL (NORMAL); TOTAL CELLS COUNTED 100 #CELLS; VACUOLATION OF NEUTROPHILS SLIGHT
[2019-09-17 08:00] VITALS: BP 127/80
[2019-09-17 12:00] VITALS: BP 134/72
[2019-09-17 16:00] VITALS: BP 134/76
[2019-09-17 20:00] VITALS: BP 134/90
[2019-09-18] VITALS: BP 143/71
[2019-09-18 08:00] VITALS: BP 151/85
[2019-09-18 12:00] VITALS: BP 137/73
[2019-09-18 16:00] VITALS: BP 142/68
[2019-09-18 20:00] VITALS: BP 145/78
[2019-09-19] VITALS: BP 119/48
[2019-09-19 03:02] VITALS: BP 139/75
[2019-09-19 10:32] VITALS: BP 111/63
[2019-09-19 10:36] LABS: HEMATOCRIT 36.2 % (37.0-47.0); MEAN CELL VOLUME 86.4 fl (81.0-99.0); MEAN CORPUSCULAR HGB 27.7 pg (27.0-31.0); MEAN PLATELET VOLUME 9.4 fl (9.6-12.3); PLATELET COUNT AUTOMATED 137 10*3/uL (130-400); RED BLOOD COUNT 4.19 10*6/uL (4.10-5.10); RED CELL DISTRI WIDTH 14.5 % (0-14.5)
[2019-09-19 10:55] LABS: PLATELET SUFFICIENCY NORMAL (NORMAL); TOTAL CELLS COUNTED 100 #CELLS
[2019-09-19 11:21] LABS: ALKALINE PHOSPHATASE 85 U/L (45-117); BUN 17 mg/dl (7-24); CHLORIDE 106 mmol/L (98-107); POTASSIUM 3.3 mmol/L (3.5-5.1); SGOT/AST 29 IU/L (3-35); SGPT/ALT 29 U/L (12-78); SODIUM 138 mmol/L (136-145); TOTAL PROTEIN 5.6 gm/dL (6.4-8.2)
[2019-09-19 12:00] VITALS: BP 98/53
[2019-09-19 16:00] VITALS: BP 117/66
[2019-09-19 20:00] VITALS: BP 127/47
[2019-09-20] VITALS: BP 137/84
[2019-09-20 08:00] VITALS: BP 131/78
[2019-09-20 12:00] VITALS: BP 124/72
[2019-09-20] MEDS ORDERED: LEVOFLOXACIN500 MG PO (12:15)
[2019-09-20 16:00] VITALS: BP 131/71
[2019-09-20 20:00] VITALS: BP 136/75
[2019-09-21] VITALS: BP 156/87
[2019-09-21 08:00] VITALS: BP 130/75
== END 2019-09-21 12:18 | disposition home or self-care (01) | DRG 391 ==
LOC: ED 14:17 → 4E 16:51 → EDHOLD 16:51 → 5E 16:51 → 4E 17:14 → 5E 09-10 09:09 → 4E 09-13 15:38
PROVIDERS: Emergency Medicine; Family Medicine; Internal Medicine; ADMIT Internal Medicine
DX: A08.4 Viral intestinal infection, unspecified (principal); E43 Unspecified severe protein-calorie malnutrition; N17.0 Acute kidney failure with tubular necrosis; R65.10 Systemic inflammatory response syndrome (SIRS) of non-infectious origin without acute organ dysfunction; E87.3 Alkalosis; E87.1 Hypo-osmolality and hyponatremia; B34.9 Viral infection, unspecified; M06.9 Rheumatoid arthritis, unspecified; R50.9 Fever, unspecified; Z20.828 Contact with and (suspected) exposure to other viral communicable diseases; K21.0 Gastro-esophageal reflux disease with esophagitis; R62.7 Adult failure to thrive; R09.02 Hypoxemia; G43.909 Migraine, unspecified, not intractable, without status migrainosus; L40.50 Arthropathic psoriasis, unspecified; D50.9 Iron deficiency anemia, unspecified; D17.71 Benign lipomatous neoplasm of kidney; R91.1 Solitary pulmonary nodule; R73.9 Hyperglycemia, unspecified; E66.9 Obesity, unspecified; Z96.653 Presence of artificial knee joint, bilateral; Z82.0 Family history of epilepsy and other diseases of the nervous system; Z79.899 Other long term (current) drug therapy; Z90.5 Acquired absence of kidney; Z68.27 Body mass index [BMI] 27.0-27.9, adult

== ENCOUNTER 2019-09-23 12:47 | Inpatient (IN) | payer OTHER ==
[~2019-09-23] VITALS: Ht 167.6 cm; Wt 75.4 kg
[2019-09-23] VITALS (7 sets, daily range): BP systolic 100–152; BP diastolic 53–96
[~2019-09-23 12:47] MED LIST changes: +AMOXICILLIN500 M2 PO; +CELEBREX100 MG PO; +CELECOXIB200 M1 PO; +LEVOFLOXACIN500 MG PO
[2019-09-23 13:54] LABS: ABG BASE EXCESS 3.9 mmol/L (-2.0-2.0); ARTERIAL BLOOD GAS PH 7.508 (7.35-7.45)
[2019-09-23 14:11] LABS: HEMATOCRIT 42.9 % (37.0-47.0); MEAN CELL VOLUME 87.6 fl (81.0-99.0); MEAN CORPUSCULAR HGB 26.9 pg (27.0-31.0); MEAN CORPUSCULAR HGB CONC 30.8 g/dl (33.0-37.0); MEAN PLATELET VOLUME 9.9 fl (9.6-12.3); NUCLEATED RED BLOOD CELL 0.1 % (0.0-0.0); PLATELET COUNT AUTOMATED 128 10*3/uL (130-400); RED CELL DISTRI WIDTH 14.9 % (0-14.5); WHITE BLOOD COUNT 17.7 10*3/uL (4.8-10.8)
[2019-09-23 14:26] LABS: ALBUMIN 2.5 gm/dl (3.1-4.5); ALKALINE PHOSPHATASE 83 U/L (45-117); BUN 14 mg/dl (7-24); CHLORIDE 102 mmol/L (98-107); CREATININE 1.03 mg/dL (0.55-1.02); LDH 459 U/L (84-246); LIPASE 195 U/L (73-393); POTASSIUM 3.6 mmol/L (3.5-5.1); SGOT/AST 40 IU/L (3-35); SGPT/ALT 38 U/L (12-78); SODIUM 138 mmol/L (136-145); TOTAL PROTEIN 6.6 gm/dL (6.4-8.2); TROPONIN I < 0.015 ng/ml (<0.045)
[2019-09-23 14:30] LABS: ACT PARTIAL THROMBO TIME 20.8 SECONDS (20.0-32.1)
[2019-09-23 14:38] LABS: ATYPICAL LYMPHS 2 % (0-0); TOTAL CELLS COUNTED 100 #CELLS; TOXIC GRANULATION SLIGHT
[2019-09-23 14:39] LABS: PLATELET SUFFICIENCY NORMAL (NORMAL)
[2019-09-23 15:13] LABS: BILIRUBIN NEGATIVE (NEGATIVE); BLOOD NEGATIVE (NEGATIVE); CLARITY SL CLOUDY (CLEAR); COLOR YELLOW (YELLOW); GLUCOSE NEGATIVE (NEGATIVE); KETONE NEGATIVE (NEGATIVE); LEUKO ESTERASE NEGATIVE (NEGATIVE); NITRITE NEGATIVE (NEGATIVE); PH 7.5 (5.0-9.0); SPECIFIC GRAVITY 1.005 (1.005-1.030); UROBILINOGEN 0.2 E.U./dl (0.2-1.0)
[2019-09-23 15:24] LABS: HYALINE CAST 0-2; RBC 0-2 rbc/hpf (0-2)
[2019-09-24] VITALS: BP 121/54
[2019-09-24 06:16] LABS: HEMATOCRIT 35.5 % (37.0-47.0); MEAN CELL VOLUME 87.7 fl (81.0-99.0); MEAN CORPUSCULAR HGB 26.7 pg (27.0-31.0); MEAN CORPUSCULAR HGB CONC 30.4 g/dl (33.0-37.0); MEAN PLATELET VOLUME 9.5 fl (9.6-12.3); PLATELET COUNT AUTOMATED 107 10*3/uL (130-400); RED BLOOD COUNT 4.05 10*6/uL (4.10-5.10); RED CELL DISTRI WIDTH 15.1 % (0-14.5); WHITE BLOOD COUNT 10.4 10*3/uL (4.8-10.8)
[2019-09-24 06:45] LABS: BUN 13 mg/dl (7-24); CHLORIDE 107 mmol/L (98-107); CREATININE 0.89 mg/dL (0.55-1.02); POTASSIUM 3.5 mmol/L (3.5-5.1); SODIUM 141 mmol/L (136-145)
[2019-09-24 06:57] LABS: ATYPICAL LYMPHS 1 % (0-0); TOTAL CELLS COUNTED 100 #CELLS
[2019-09-24 06:58] LABS: PLATELET SUFFICIENCY LOW (NORMAL); POLYCHROMASIA SLIGHT
[2019-09-24 08:42] LABS: LIPASE 64 U/L (73-393)
[2019-09-24 12:00] VITALS: BP 120/63
[2019-09-24 16:00] VITALS: BP 106/60
[2019-09-24 20:00] VITALS: BP 115/56
[2019-09-25] VITALS: BP 110/53
[2019-09-25 06:08] LABS: BUN 10 mg/dl (7-24); CHLORIDE 107 mmol/L (98-107); CREATININE 0.87 mg/dL (0.55-1.02); POTASSIUM 3.4 mmol/L (3.5-5.1); SODIUM 140 mmol/L (136-145)
[2019-09-25 06:11] LABS: BASO # 0.1 10*3/uL (0.0-0.1); BASO % 0.6 % (0.0-1.0); EOS # 0.1 10*3/uL (0.0-0.4); EOS % 0.7 % (1.0-4.0); HEMATOCRIT 33.1 % (37.0-47.0); LYMPH # 1.4 10*3/uL (1.3-4.4); LYMPH % 12.8 % (27.0-41.0); MEAN CORPUSCULAR HGB 27.1 pg (27.0-31.0); MEAN CORPUSCULAR HGB CONC 30.8 g/dl (33.0-37.0); MEAN PLATELET VOLUME 10.1 fl (9.6-12.3); MONO # 0.4 10*3/uL (0.1-1.0); MONO % 4.1 % (3.0-9.0); NEUT # 8.5 10*3/uL (2.3-7.9); NEUT % 79.7 % (47.0-73.0); PLATELET COUNT AUTOMATED 125 10*3/uL (130-400); RED BLOOD COUNT 3.76 10*6/uL (4.10-5.10); RED CELL DISTRI WIDTH 15.4 % (0-14.5); WHITE BLOOD COUNT 10.7 10*3/uL (4.8-10.8)
[2019-09-25 07:58] VITALS: BP 128/68
[2019-09-25 12:00] VITALS: BP 122/68
[2019-09-25 14:04] LABS: CORTISOL #2 14.8 ug/dL (Not Estab.); CORTISOL #3 17.7 ug/dL (Not Estab.)
[2019-09-25 16:00] VITALS: BP 101/74
[2019-09-25 20:00] VITALS: BP 120/68
[2019-09-26] VITALS: BP 120/46
[2019-09-26 08:00] VITALS: BP 132/62
[2019-09-26 12:00] VITALS: BP 124/72
[2019-09-26 16:00] VITALS: BP 125/73
[2019-09-26 20:00] VITALS: BP 135/79
[2019-09-27] VITALS: BP 127/65
[2019-09-27 08:00] VITALS: BP 152/71
[2019-09-27] MEDS ORDERED: PREDNISONE5 MG PO (08:29)
[2019-09-27] MEDS ORDERED: PROTONIX40 MG PO (08:30)
[2019-09-27] MEDS ORDERED: CARAFATE1 GM PO (08:30)
[2019-09-28 00:01] LABS: TB1 Ag VALUE 0.02 IU/mL (.)
== END 2019-09-27 13:22 | disposition other institution (70) | DRG 392 ==
LOC: ED 12:47 → 4E 14:43 → EDHOLD 14:43 → 4E 14:56
PROVIDERS: Emergency Medicine; Internal Medicine; ADMIT Internal Medicine
DX: K29.00 Acute gastritis without bleeding (principal); E87.3 Alkalosis; R65.10 Systemic inflammatory response syndrome (SIRS) of non-infectious origin without acute organ dysfunction; E27.3 Drug-induced adrenocortical insufficiency; E44.1 Mild protein-calorie malnutrition; T38.0X5A Adverse effect of glucocorticoids and synthetic analogues, initial encounter; R62.7 Adult failure to thrive; E87.6 Hypokalemia; M06.9 Rheumatoid arthritis, unspecified; D17.71 Benign lipomatous neoplasm of kidney; L40.50 Arthropathic psoriasis, unspecified; K21.9 Gastro-esophageal reflux disease without esophagitis; R79.89 Other specified abnormal findings of blood chemistry; Y92.89 Other specified places as the place of occurrence of the external cause; Z79.899 Other long term (current) drug therapy; Z68.26 Body mass index [BMI] 26.0-26.9, adult

== ENCOUNTER → 2019-11-07 | Outpatient (CLI) | payer OTHER ==
[~2019-11-07] MED LIST changes: +CARAFATE1 GM PO; +PROTONIX40 MG PO
[2019-11-07 16:00] LABS: HEMATOCRIT 42.3 % (37.0-47.0); MEAN CELL VOLUME 91.2 fl (81.0-99.0); MEAN CORPUSCULAR HGB 27.8 pg (27.0-31.0); MEAN CORPUSCULAR HGB CONC 30.5 g/dl (33.0-37.0); MEAN PLATELET VOLUME 9.8 fl (9.6-12.3); PLATELET COUNT AUTOMATED 263 10*3/uL (130-400); RED BLOOD COUNT 4.64 10*6/uL (4.10-5.10); RED CELL DISTRI WIDTH 15.7 % (0-14.5); WHITE BLOOD COUNT 19.4 10*3/uL (4.8-10.8)
[2019-11-07 16:15] LABS: ALBUMIN 3.1 gm/dl (3.1-4.5); CREATININE 1.43 mg/dL (0.55-1.02)
[2019-11-07 16:16] LABS: FREE T4 1.09 ng/dl (0.76-1.46)
[2019-11-07 16:21] LABS: THYROID STIM HORMONE (HS) 0.794 uIU/ml (0.358-4.75)
[2019-11-07 16:24] LABS: TOTAL CELLS COUNTED 100 #CELLS
[2019-11-07 16:25] LABS: PLATELET SUFFICIENCY NORMAL (NORMAL)
[2019-11-07 18:34] LABS: VITAMIN D, 25-HYDROXY 21.6 ng/mL (30-100)
== END | disposition home or self-care (01) ==
LOC: LAB 15:12 → US 15:30
PROVIDERS: Internal Medicine
DX: Z00.00 Encounter for general adult medical examination without abnormal findings (principal); M10.9 Gout, unspecified; E55.9 Vitamin D deficiency, unspecified; I10 Essential (primary) hypertension; R60.0 Localized edema

== ENCOUNTER 2020-01-07 13:18 | Inpatient (IN) | payer OTHER ==
[~2020-01-07] VITALS: Ht 167.6 cm; Wt 82.7 kg
[2020-01-07 13:30] VITALS: BP 127/86
[2020-01-07 14:30] LABS: MEAN CELL VOLUME 90.9 fl (81.0-99.0); MEAN CORPUSCULAR HGB 28.6 pg (27.0-31.0); MEAN CORPUSCULAR HGB CONC 31.4 g/dl (33.0-37.0); MEAN PLATELET VOLUME 9.8 fl (9.6-12.3); PLATELET COUNT AUTOMATED 175 10*3/uL (130-400); RED BLOOD COUNT 4.62 10*6/uL (4.10-5.10); RED CELL DISTRI WIDTH 16.5 % (0-14.5); WHITE BLOOD COUNT 15.6 10*3/uL (4.8-10.8)
[2020-01-07 14:42] LABS: CLARITY CLEAR (CLEAR); COLOR YELLOW (YELLOW)
[2020-01-07 14:44] LABS: BILIRUBIN 1+ (NEGATIVE); BLOOD NEGATIVE (NEGATIVE); GLUCOSE NEGATIVE (NEGATIVE); KETONE NEGATIVE (NEGATIVE); LEUKO ESTERASE 1+ (NEGATIVE); NITRITE NEGATIVE (NEGATIVE); UROBILINOGEN 0.2 E.U./dl (0.2-1.0)
[2020-01-07 14:44] LABS: ALBUMIN 3.2 gm/dl (3.1-4.5); CREATININE 1.52 mg/dL (0.55-1.02); POTASSIUM 4.4 mmol/L (3.5-5.1); TOTAL PROTEIN 6.5 gm/dL (6.4-8.2)
[2020-01-07 14:54] LABS: BACTERIA 1+; MUCOUS 1+
[2020-01-07 14:55] LABS: PLATELET SUFFICIENCY NORMAL (NORMAL); TOTAL CELLS COUNTED 100 #CELLS
[2020-01-07 15:08] VITALS: BP 136/69
[2020-01-07 16:23] VITALS: BP 142/81
[2020-01-07 16:25] VITALS: BP 142/81
[2020-01-07] MEDS ORDERED: PREDNISONE20 M1 PO (17:37)
[2020-01-07] MEDS ORDERED: ALLOPURINOL100 MG PO (17:41)
[2020-01-07] MEDS ORDERED: K2 PLUS D3 TAB1 EACH PO (17:41)
[2020-01-07] MEDS ORDERED: SEPTDS PO (17:42)
[2020-01-07 20:00] VITALS: BP 109/65
[2020-01-08] VITALS: BP 123/57
[2020-01-08 06:00] VITALS: BP 150/86
[2020-01-08 06:32] LABS: MEAN CELL VOLUME 92.8 fl (81.0-99.0); MEAN CORPUSCULAR HGB 28.8 pg (27.0-31.0); MEAN PLATELET VOLUME 10.4 fl (9.6-12.3); PLATELET COUNT AUTOMATED 138 10*3/uL (130-400); RED BLOOD COUNT 4.31 10*6/uL (4.10-5.10); RED CELL DISTRI WIDTH 16.8 % (0-14.5)
[2020-01-08 06:58] LABS: CREATININE 1.12 mg/dL (0.55-1.02); POTASSIUM 4.5 mmol/L (3.5-5.1)
[2020-01-08 07:10] LABS: PLATELET SUFFICIENCY NORMAL (NORMAL); TOTAL CELLS COUNTED 100 #CELLS
[2020-01-08 07:48] VITALS: BP 107/67
[2020-01-08 12:00] VITALS: BP 118/63
[2020-01-08 16:00] VITALS: BP 144/55
[2020-01-08 20:00] VITALS: BP 117/88
[2020-01-09] VITALS: BP 121/65
[2020-01-09 07:32] LABS: HEMATOCRIT 35.8 % (37.0-47.0); MEAN CELL VOLUME 93.7 fl (81.0-99.0); MEAN CORPUSCULAR HGB 28.5 pg (27.0-31.0); MEAN CORPUSCULAR HGB CONC 30.4 g/dl (33.0-37.0); MEAN PLATELET VOLUME 9.8 fl (9.6-12.3); PLATELET COUNT AUTOMATED 114 10*3/uL (130-400); RED BLOOD COUNT 3.82 10*6/uL (4.10-5.10); RED CELL DISTRI WIDTH 16.6 % (0-14.5)
[2020-01-09 07:51] LABS: BURR CELLS FEW; PLATELET SUFFICIENCY LOW (NORMAL); ROULEAUX SLIGHT; TOTAL CELLS COUNTED 100 #CELLS
[2020-01-09 08:00] VITALS: BP 159/84
[2020-01-09 12:00] VITALS: BP 140/85
[2020-01-09 16:00] VITALS: BP 160/88
[2020-01-09 20:00] VITALS: BP 171/92; BP 178/92
[2020-01-10] VITALS (7 sets, daily range): BP systolic 115–185; BP diastolic 80–100
[2020-01-10 08:46] LABS: BASO % 0.1 % (0.0-1.0); EOS # 0.1 10*3/uL (0.0-0.4); HEMATOCRIT 37.3 % (37.0-47.0); LYMPH # 0.4 10*3/uL (1.3-4.4); MEAN CELL VOLUME 91.9 fl (81.0-99.0); MEAN CORPUSCULAR HGB 28.6 pg (27.0-31.0); MEAN CORPUSCULAR HGB CONC 31.1 g/dl (33.0-37.0); MEAN PLATELET VOLUME 10.1 fl (9.6-12.3); MONO # 0.4 10*3/uL (0.1-1.0); MONO % 4.8 % (3.0-9.0); NEUT # 7.8 10*3/uL (2.3-7.9); PLATELET COUNT AUTOMATED 147 10*3/uL (130-400); RED BLOOD COUNT 4.06 10*6/uL (4.10-5.10); RED CELL DISTRI WIDTH 15.9 % (0-14.5); WHITE BLOOD COUNT 8.9 10*3/uL (4.8-10.8)
[2020-01-11] VITALS: BP 167/94
[2020-01-11 02:20] VITALS: BP 162/90
[2020-01-11 04:00] VITALS: BP 152/88
[2020-01-11 08:00] VITALS: BP 162/92
[2020-01-11 09:02] LABS: BASO % 0.4 % (0.0-1.0); EOS # 0.1 10*3/uL (0.0-0.4); EOS % 1.2 % (1.0-4.0); HEMATOCRIT 36.8 % (37.0-47.0); LYMPH # 0.4 10*3/uL (1.3-4.4); LYMPH % 4.7 % (27.0-41.0); MEAN CELL VOLUME 89.8 fl (81.0-99.0); MEAN CORPUSCULAR HGB 28.3 pg (27.0-31.0); MEAN CORPUSCULAR HGB CONC 31.5 g/dl (33.0-37.0); MONO # 0.4 10*3/uL (0.1-1.0); MONO % 5.7 % (3.0-9.0); NEUT # 6.6 10*3/uL (2.3-7.9); NEUT % 86.4 % (47.0-73.0); PLATELET COUNT AUTOMATED 145 10*3/uL (130-400); RED CELL DISTRI WIDTH 15.6 % (0-14.5); WHITE BLOOD COUNT 7.7 10*3/uL (4.8-10.8)
[2020-01-11] MEDS ORDERED: ERTAPENEM1 GM IV (10:25)
[2020-01-11 12:00] VITALS: BP 147/70
[2020-01-11] MEDS ORDERED: CLONIDINE HCL0.2 MG PO (12:33)
== END 2020-01-11 15:12 | disposition home or self-care (01) | DRG 602 ==
LOC: ED 13:18 → EDHOLD 15:30 → 5E 15:59
PROVIDERS: Nurse Practitioner Family; Podiatrist; ADMIT Internal Medicine
PROC: 0HBKXZZ Excision of Right Lower Leg Skin, External Approach (ICD-10-PCS; principal; 2020-01-09)
PROC: 05HB33Z Insertion of Infusion Device into Right Basilic Vein, Percutaneous Approach (ICD-10-PCS; 2020-01-11)
PROC: B54MZZA Ultrasonography of Right Upper Extremity Veins, Guidance (ICD-10-PCS; 2020-01-11)
DX: L03.115 Cellulitis of right lower limb (principal); E43 Unspecified severe protein-calorie malnutrition; N17.0 Acute kidney failure with tubular necrosis; R78.81 Bacteremia; E27.40 Unspecified adrenocortical insufficiency; D84.9 Immunodeficiency, unspecified; M06.9 Rheumatoid arthritis, unspecified; L40.50 Arthropathic psoriasis, unspecified; I87.2 Venous insufficiency (chronic) (peripheral); I73.9 Peripheral vascular disease, unspecified; I10 Essential (primary) hypertension; K21.0 Gastro-esophageal reflux disease with esophagitis; S80.811A Abrasion, right lower leg, initial encounter; W54.0XXA Bitten by dog, initial encounter; Y93.89 Activity, other specified; Y92.89 Other specified places as the place of occurrence of the external cause; Y99.8 Other external cause status; Z79.899 Other long term (current) drug therapy; Z68.29 Body mass index [BMI] 29.0-29.9, adult; N18.3 Chronic kidney disease, stage 3 (moderate)

== ENCOUNTER 2020-03-17 18:27 | Inpatient (IN) | payer OTHER ==
[~2020-03-17] VITALS: Ht 167.6 cm; Wt 76.3 kg
[~2020-03-17 18:27] MED LIST changes: +ALLOPURINOL100 MG PO; +CLONIDINE HCL0.2 MG PO; +ERTAPENEM1 GM IV; +K2 PLUS D3 TAB1 EACH PO; +PREDNISONE20 M1 PO
[2020-03-17 18:41] VITALS: BP 109/68
[2020-03-17 19:56] LABS: HEMATOCRIT 38.6 % (37.0-47.0); MEAN CELL VOLUME 88.7 fl (81.0-99.0); MEAN CORPUSCULAR HGB 26.4 pg (27.0-31.0); MEAN CORPUSCULAR HGB CONC 29.8 g/dl (33.0-37.0); MEAN PLATELET VOLUME 9.7 fl (9.6-12.3); PLATELET COUNT AUTOMATED 373 10*3/uL (130-400); RED BLOOD COUNT 4.35 10*6/uL (4.10-5.10); RED CELL DISTRI WIDTH 14.6 % (0-14.5); WHITE BLOOD COUNT 35.4 10*3/uL (4.8-10.8)
[2020-03-17 20:07] LABS: ACT PARTIAL THROMBO TIME 23.9 SECONDS (20.0-32.1); INTERNATIONAL NORM RATIO 1.1 (2.0-3.5)
[2020-03-17 20:17] LABS: ALBUMIN 2.8 gm/dl (3.1-4.5); ALKALINE PHOSPHATASE 200 U/L (45-117); BUN 23 mg/dl (7-24); CHLORIDE 104 mmol/L (98-107); CREATININE 1.86 mg/dL (0.55-1.02); LIPASE 87 U/L (73-393); POTASSIUM 4.4 mmol/L (3.5-5.1); SGOT/AST 11 IU/L (3-35); SGPT/ALT 18 U/L (12-78); SODIUM 136 mmol/L (136-145); TOTAL PROTEIN 7.4 gm/dL (6.4-8.2)
[2020-03-17 20:19] LABS: BURR CELLS FEW; PLATELET SUFFICIENCY NORMAL (NORMAL); TOTAL CELLS COUNTED 100 #CELLS
[2020-03-17 20:20] LABS: OVALOCYTES FEW
[2020-03-17 20:21] LABS: TROPONIN I < 0.015 ng/ml (<0.045)
[2020-03-17 23:28] LABS: BILIRUBIN Negative (Negative); BLOOD Negative (Negative); CLARITY Cloudy (Clear); COLOR Yellow (Yellow); GLUCOSE Negative (Negative); KETONE Trace (Negative); LEUKO ESTERASE 2+ (Negative); NITRITE Negative (Negative); PH 6.5 (4.5-8.0); SPECIFIC GRAVITY 1.025 (1.001-1.030)
[2020-03-17 23:49] LABS: BACTERIA 1+; EPITHELIAL CELLS 16-20; WBC 31-40 wbc/hpf (0-5)
[2020-03-18 01:15] VITALS: BP 135/77
[2020-03-18] MEDS ORDERED: VITAMIN D350 MCG PO (01:37)
[2020-03-18] MEDS ORDERED: PREDNISONE5 MG PO (01:38)
[2020-03-18] MEDS ORDERED: PANTOPRAZOLE SO40 MG PO (01:45)
[2020-03-18 06:23] LABS: HEMATOCRIT 35.1 % (37.0-47.0); MEAN CELL VOLUME 88.4 fl (81.0-99.0); MEAN CORPUSCULAR HGB 25.9 pg (27.0-31.0); MEAN CORPUSCULAR HGB CONC 29.3 g/dl (33.0-37.0); MEAN PLATELET VOLUME 9.8 fl (9.6-12.3); PLATELET COUNT AUTOMATED 350 10*3/uL (130-400); RED BLOOD COUNT 3.97 10*6/uL (4.10-5.10); RED CELL DISTRI WIDTH 14.7 % (0-14.5); WHITE BLOOD COUNT 30.8 10*3/uL (4.8-10.8)
[2020-03-18 06:27] VITALS: BP 137/67
[2020-03-18 06:58] LABS: POTASSIUM 3.9 mmol/L (3.5-5.1)
[2020-03-18 07:01] LABS: CREATININE 1.56 mg/dL (0.55-1.02)
[2020-03-18 07:23] LABS: BURR CELLS FEW; PLATELET SUFFICIENCY NORMAL (NORMAL); TOTAL CELLS COUNTED 100 #CELLS
[2020-03-18 12:00] VITALS: BP 124/76
[2020-03-18 16:00] VITALS: BP 95/57
[2020-03-18 20:00] VITALS: BP 111/64
[2020-03-19] VITALS: BP 118/61
[2020-03-19 06:14] LABS: HEMATOCRIT 31.9 % (37.0-47.0); MEAN CELL VOLUME 88.9 fl (81.0-99.0); MEAN CORPUSCULAR HGB 26.5 pg (27.0-31.0); MEAN CORPUSCULAR HGB CONC 29.8 g/dl (33.0-37.0); MEAN PLATELET VOLUME 9.6 fl (9.6-12.3); PLATELET COUNT AUTOMATED 256 10*3/uL (130-400); RED BLOOD COUNT 3.59 10*6/uL (4.10-5.10); RED CELL DISTRI WIDTH 14.8 % (0-14.5); WHITE BLOOD COUNT 22.2 10*3/uL (4.8-10.8)
[2020-03-19 06:38] LABS: CREATININE 1.22 mg/dL (0.55-1.02)
[2020-03-19 07:09] LABS: PLATELET SUFFICIENCY NORMAL (NORMAL); SCHISTOCYTES FEW; TOTAL CELLS COUNTED 100 #CELLS
[2020-03-19 07:10] LABS: BURR CELLS FEW
[2020-03-19 08:00] VITALS: BP 120/70
[2020-03-19 08:49] LABS: BILIRUBIN Negative (Negative); BLOOD Negative (Negative); CLARITY Clear (Clear); COLOR Yellow (Yellow); GLUCOSE Negative (Negative); KETONE Negative (Negative); LEUKO ESTERASE 1+ (Negative); NITRITE Negative (Negative); PH 5.5 (4.5-8.0); UROBILINOGEN 0.2 E.U./dl (0.0-1.0)
[2020-03-19 09:08] LABS: URINE CREATININE RANDOM 83.4 mg/dL
[2020-03-19 09:26] LABS: BACTERIA 1+; WBC 21-30 wbc/hpf (0-5)
[2020-03-19 12:00] VITALS: BP 151/75
[2020-03-19 16:00] VITALS: BP 130/66
[2020-03-19 20:00] VITALS: BP 136/81
[2020-03-20] VITALS: BP 141/86
[2020-03-20 06:31] LABS: BASO % 0.3 % (0.0-1.0); EOS # 0.4 10*3/uL (0.0-0.4); EOS % 3.6 % (1.0-4.0); LYMPH # 0.4 10*3/uL (1.3-4.4); LYMPH % 4.2 % (27.0-41.0); MEAN CELL VOLUME 89.1 fl (81.0-99.0); MEAN CORPUSCULAR HGB 26.5 pg (27.0-31.0); MEAN CORPUSCULAR HGB CONC 29.7 g/dl (33.0-37.0); MEAN PLATELET VOLUME 10.1 fl (9.6-12.3); MONO # 0.3 10*3/uL (0.1-1.0); MONO % 3.2 % (3.0-9.0); NEUT # 9.1 10*3/uL (2.3-7.9); NEUT % 86.8 % (47.0-73.0); PLATELET COUNT AUTOMATED 249 10*3/uL (130-400); RED BLOOD COUNT 3.59 10*6/uL (4.10-5.10); RED CELL DISTRI WIDTH 14.5 % (0-14.5); WHITE BLOOD COUNT 10.5 10*3/uL (4.8-10.8)
[2020-03-20 06:42] LABS: BUN 10 mg/dl (7-24); CHLORIDE 112 mmol/L (98-107); CREATININE 0.99 mg/dL (0.55-1.02); POTASSIUM 3.6 mmol/L (3.5-5.1); SODIUM 143 mmol/L (136-145)
[2020-03-20 08:00] VITALS: BP 152/85
[2020-03-20 12:00] VITALS: BP 135/65
[2020-03-20 16:00] VITALS: BP 133/85
[2020-03-20 20:00] VITALS: BP 158/87
[2020-03-21] VITALS: BP 153/81
[2020-03-21 08:00] VITALS: BP 148/85
[2020-03-21] MEDS ORDERED: AUGMENTIN 875-875 MG PO ×2 (11:28)
[2020-03-21 12:00] VITALS: BP 134/78
== END 2020-03-21 14:25 | disposition home or self-care (01) | DRG 871 ==
LOC: ED 18:27 → 4E 03-18 00:40 → EDHOLD 03-18 00:40 → 4E 03-18 00:48
PROVIDERS: Internal Medicine Nephrology; Nurse Practitioner Family; ADMIT Internal Medicine; ATTEND Internal Medicine
DX: A41.9 Sepsis, unspecified organism (principal); N17.0 Acute kidney failure with tubular necrosis; N12 Tubulo-interstitial nephritis, not specified as acute or chronic; E27.40 Unspecified adrenocortical insufficiency; G43.909 Migraine, unspecified, not intractable, without status migrainosus; M16.12 Unilateral primary osteoarthritis, left hip; M06.9 Rheumatoid arthritis, unspecified; I73.9 Peripheral vascular disease, unspecified; I12.9 Hypertensive chronic kidney disease with stage 1 through stage 4 chronic kidney disease, or unspecified chronic kidney disease; N18.9 Chronic kidney disease, unspecified; M1A.9XX0 Chronic gout, unspecified, without tophus (tophi); T38.0X5A Adverse effect of glucocorticoids and synthetic analogues, initial encounter; K21.00 Gastro-esophageal reflux disease with esophagitis, without bleeding; R62.7 Adult failure to thrive; R65.20 Severe sepsis without septic shock; D30.01 Benign neoplasm of right kidney; Y92.89 Other specified places as the place of occurrence of the external cause; Z90.5 Acquired absence of kidney

== ENCOUNTER 2020-04-11 19:03 | Inpatient (IN) | payer OTHER ==
[~2020-04-11] VITALS: Ht 167.6 cm; Wt 77.1 kg
[~2020-04-11 19:03] MED LIST changes: +AUGMENTIN 875-875 MG PO; +VITAMIN D350 MCG PO
[2020-04-11 19:04] VITALS: BP 134/78
[2020-04-11 19:33] LABS: BASO # 0.1 10*3/uL (0.0-0.1); BASO % 0.4 % (0.0-1.0); EOS # 0.2 10*3/uL (0.0-0.4); HEMATOCRIT 40.8 % (37.0-47.0); LYMPH # 1.1 10*3/uL (1.3-4.4); MEAN CORPUSCULAR HGB 24.9 pg (27.0-31.0); MEAN CORPUSCULAR HGB CONC 29.7 g/dl (33.0-37.0); MEAN PLATELET VOLUME 10.5 fl (9.6-12.3); MONO # 1.1 10*3/uL (0.1-1.0); MONO % 5.7 % (3.0-9.0); NEUT # 16.2 10*3/uL (2.3-7.9); NEUT % 85.4 % (47.0-73.0); PLATELET COUNT AUTOMATED 347 10*3/uL (130-400); RED BLOOD COUNT 4.86 10*6/uL (4.10-5.10); RED CELL DISTRI WIDTH 15.8 % (0-14.5); WHITE BLOOD COUNT 18.9 10*3/uL (4.8-10.8)
--- NOTE | 2020-04-11 19:37 | NUR ---
PT IV STARTED MEDICATED PER ORDERS
--- NOTE | 2020-04-11 19:47 | NUR ---
PT FAUZIA TO GIVE URINE SAMPLE AT THIS TIME
--- NOTE | 2020-04-11 20:16 | NUR ---
PT PLACED ON BEDPAN
--- NOTE | 2020-04-11 20:26 | NUR ---
URINE SENT TO LAB
[2020-04-11 20:38] LABS: BILIRUBIN Negative (Negative); BLOOD Negative (Negative); CLARITY Cloudy (Clear); COLOR Dark Yellow (Yellow); GLUCOSE Negative (Negative); KETONE 1+ (Negative); LEUKO ESTERASE 3+ (Negative); NITRITE Negative (Negative)
--- NOTE | 2020-04-11 20:49 | NUR ---
PT STATES NAUSEA STILL REMAINS SLIGHTLY
[2020-04-11 20:53] LABS: RBC 0-2 rbc/hpf (0-2); WBC 51-100 wbc/hpf (0-5)
[2020-04-11 20:54] LABS: BACTERIA 1+
[2020-04-11 21:00] LABS: CREATININE 1.17 mg/dL (0.55-1.02); POTASSIUM 3.9 mmol/L (3.5-5.1)
[2020-04-11 21:01] LABS: ALBUMIN 2.5 gm/dl (3.1-4.5); TOTAL PROTEIN 6.9 gm/dL (6.4-8.2)
[2020-04-11 23:21] VITALS: BP 117/72
--- NOTE | 2020-04-11 23:21 | NUR ---
CALLED PLACED TO DR HECTOR LM ON VM
--- NOTE | 2020-04-11 23:22 | NUR ---
PT SLEEPING AT THIS TIME. NSS INFUSING. NO DISTRESS NOTED.
[2020-04-12] VITALS (8 sets, daily range): BP systolic 109–128; BP diastolic 65–81
--- NOTE | 2020-04-12 00:04 | NUR ---
PT REPORTS ONGOING NAUSEA.
--- NOTE | 2020-04-12 00:06 | NUR ---
CALL PLACED TO DR YOUNG FOR ORDERS. MESSAGE LEFT ON
--- NOTE | 2020-04-12 00:33 | NUR ---
PT PLACED IN ADMISSION BED. NO ORDERS RECEIVED THUS FAR FROM DR YOUNG. PHENERGAN ORDER OBTAINED VIA VERBAL ORDER FROM DR MATA
--- NOTE | 2020-04-12 00:34 | NUR ---
PT GIVEN ICE CHIPS AND SIPS OF WATER. TOLERATED WELL.
--- NOTE | 2020-04-12 01:52 | NUR ---
PT SLEEPING QUIETLY. NO DISTRESS NOTED.
--- NOTE | 2020-04-12 02:37 | NUR ---
ORDERS RECEIVED FROM DR YOUNG.
--- NOTE | 2020-04-12 02:38 | NUR ---
NSS INFUSION RATE CHANGED TO 60ML/HR
--- NOTE | 2020-04-12 05:57 | NUR ---
PT RESTING IN BED WITH EYES CLOSED.FLUIDS CONTINUE TO INFUSE.VITALS REASSESSED.
--- NOTE | 2020-04-12 06:45 | NUR ---
PT PROVIDED DRINK OF WATER.FLUIDS CONTINUE TO INFUSE.PT DENIES ANY OTHER NEEDS.
--- NOTE | 2020-04-12 08:09 | NUR ---
REPORT WAS RECIEVED FROM DILIP HENRIQUEZ PT IN BED IN LOW FOWLERS POSITION SLEEPING PT AWOKE EASILY WITH VERBAL STIMULI PT WITH NO COMPLAINTS NO REQUESTS AT THIS TIME BED IN LOWEST POSITION BED RAILS UP X 2 CALL LIGHT IN REACH PT ACCEPTED ORAL MEDICATIONS WITH ANY PROBLEMS MEDICATIONS TAKEN WITH 2% MILK
--- NOTE | 2020-04-12 08:55 | NUR ---
PT FLUIDS INCREASED TO 100 ML/HR PER DR YOUNG PT GIVEN PAIN MED ORDERED PT C/O NAUSEA STATES MILK JUST "LAYING" ON STOMACH PT GIVEN IV ZOFRAN PRN ORDERED PT RESTING NOW IN BED GIVEN SMALL AMOUNTS OF WATER PO PT REQUESTED PT BED IN LOW POSITION BED RAILS UP CALL LIGHT IN REACH
--- NOTE | 2020-04-12 11:00 | NUR ---
The assessment has been completed. RUDOLPH ROQUE Time: A 64 year old FEMALE admitted to under services of RACQUEL FINNEY MD. Pt. arrived via bed from ER. Chief complaint: VIA AMBULANCE FROM HOME FOR ABNORMAL LABS. PT REPORTS SHE WAS AT [facility] FOR PREOP TESTING FOR HIP REPLACEMENT. PT WAS CALLED YESTERDAY AND TOLD TO GET TO AND ER HER WBC WERE HIGH. C/O NAUSEA/DIZZINESS. PT REPORTS FREQUENT UTI'S. RUDOLPH ROQUE
--- NOTE | 2020-04-12 11:31 | NUR ---
Mounter Sousaphones in to talk to patient. Patient states lives at HOME with HER . There are 25 steps in the home. Physician: DR. CAREY PETERSEN Pharmacy: [facility] [place] [facility] services: NONE Patient's level of ADLs: INDEPENDENT Patient has working utilities: YES DME: NONE Follow-up physician's appointment after d/c: SHE PREFERS TO MAKE HER OWN FOLLOW UP APPOINTMENT Does patient want to access PORTAL?: NO Discharge plan : WEB SIZER IN TO SPEAK WITH THE PATIENT. PATIENT STATES SHE LIVES AT HOME WITH HER . PATIENT STATES SHE IS INDEPENDENT IN HER CARE AND WHEN AMBULATING. WEB SIZER ASKED HER ABOUT SNF AND HOME HEALTH. PATIENT REFUSED AND STATED SHE WOULD RETURN HOME WITH HER . PATIENT STATES SHE WILL HAVE TRANSPORTATION AT DISCHARGE. CASE MANAGEMENT TO FOLLOW. HERLINDA BUSH
--- NOTE | 2020-04-12 17:37 | NUR ---
Patient resting quietly with no c/o discomfort. Respirations easy and regular. Vital signs stable. No overt distress. HISSOM,RUDOLPH
--- NOTE | 2020-04-12 20:00 | NUR ---
ASSESSMENT COMPLETE SEE FLOWSHEET. COOPERATIVE. NO C/O VOICED. TOOK PO MEDS WITHOUT DIFFICULTY. ALL SAFETY MEASURES IN PLACE. CALL LIGHT IN REACH.
[2020-04-13] VITALS: BP 112/68
[2020-04-13 06:21] LABS: BUN 11 mg/dl (7-24); CHLORIDE 109 mmol/L (98-107); CREATININE 0.81 mg/dL (0.55-1.02); POTASSIUM 3.8 mmol/L (3.5-5.1); SODIUM 143 mmol/L (136-145)
--- NOTE | 2020-04-13 07:00 | NUR ---
DR YOUNG INTO SEE PT
[2020-04-13 07:08] LABS: BASO % 0.2 % (0.0-1.0); EOS # 0.4 10*3/uL (0.0-0.4); EOS % 2.5 % (1.0-4.0); HEMATOCRIT 32.6 % (37.0-47.0); LYMPH # 0.7 10*3/uL (1.3-4.4); LYMPH % 4.3 % (27.0-41.0); MEAN CELL VOLUME 85.1 fl (81.0-99.0); MEAN CORPUSCULAR HGB 25.1 pg (27.0-31.0); MEAN CORPUSCULAR HGB CONC 29.4 g/dl (33.0-37.0); MONO # 0.7 10*3/uL (0.1-1.0); MONO % 4.5 % (3.0-9.0); NEUT # 13.7 10*3/uL (2.3-7.9); NEUT % 87.6 % (47.0-73.0); PLATELET COUNT AUTOMATED 247 10*3/uL (130-400); RED BLOOD COUNT 3.83 10*6/uL (4.10-5.10); RED CELL DISTRI WIDTH 15.6 % (0-14.5); WHITE BLOOD COUNT 15.7 10*3/uL (4.8-10.8)
--- NOTE | 2020-04-13 07:30 | NUR ---
PT RESTING IN BED. RESPS EASY AND NON LABORED. NO S/S OF DISTRESS NOTED. VSS. WHITE BOARD UPDATED. POC DISCUSSED W PT. A/O X3. IVF INFUSING W/O INCIDENT. DENIES DYSUIRA. C/O HIP PAIN. WILL CONTINUE TO MONITOR. CALL LIGHT WITHIN REACH.
[2020-04-13 08:00] VITALS: BP 135/71
--- NOTE | 2020-04-13 08:23 | NUR ---
CONSULT CALLEED TO DR MORA ANSWERING SERVICE
--- NOTE | 2020-04-13 08:28 | NUR ---
DR BRODY NOTIFIED OF CONSULT
--- NOTE | 2020-04-13 09:22 | NUR ---
PT C/O 01/06 ACHING.THROBBING HIP PAIN.MEDICATED PER ORDER. WILL MONITOR FOR RELIEF.RESPS EASY AND NON LABORED. SITTING UP IN BED EATING BREAKFAST. CALL LIGHT WITHN REACH.
--- NOTE | 2020-04-13 09:43 | NUR ---
WHEN DISCUSSING POC W PT SHE STATES SHE WANTS TO SEE DR BRODY REGARDING HIP COMPLICATIONS. SHE TYPICALLY FOLLOWS WITH THE [facility], BUT SHE NOW STATES THAT IT IS TO FAR FOR HER AND HER TO GO. ASKED PT IF SHE FOLLOWED UP W DR BRODY ON DISCHARGE FROM LAST ADMISSION IN FEBRUARY. PT STATED NO BECAUSE SHE WENT HOME AND COULDNT GET OOB. DISCUSSED SNF AN OPTION FOR PT-SHE STATES SHE WOULD LIKE TO GO TO [facility]. WILL PASS ALONG INFORMATION TO CARE TEAM.
--- NOTE | 2020-04-13 10:20 | NUR ---
MEDICATION MOSTLY EFFECTIVE PER PT
[2020-04-13 12:00] VITALS: BP 99/50
[2020-04-13 16:00] VITALS: BP 110/62
[2020-04-13 20:00] VITALS: BP 113/68
--- NOTE | 2020-04-13 20:45 | NUR ---
IN TO ASSESS PATIENT. PATIENT RESTING IN BED. VERY PLEASANT AND COOPERATIVE. NO DISTRESS NOTED. BREATHING IS EASY AND REGULAR ON ROOM AIR. PATIENT STATES THAT SHE HOPES THAT SHE CAN GET HER HIP DONE BY , BUT THAT HE WON'T OPERATE ON HER UNTIL HER INFECTIONS ARE CLEARED UP SO SHE IS THINKING ABOUT GOING TO A SKILLED FACILITY FOR REHAB. PATIENT HAS NO CURRENT COMPLAINTS. CALL LIGHT WITHIN REACH, WILL MONITOR
[2020-04-14] VITALS: BP 120/61
--- NOTE | 2020-04-14 03:06 | NUR ---
PATIENT RESTING IN BED. IV FLUIDS INFUSING PER POLICY. PATIENT HAS NO COMPLAINTS AND WANTS TO GO BACK TO SLEEP. CALL LIGHT WITHIN REACH, KHURARM MEZA
--- NOTE | 2020-04-14 04:49 | NUR ---
24 HR chart check completed.
--- NOTE | 2020-04-14 07:30 | NUR ---
PT RESTING IN BED. RESPS EASY AND NON LABORED. NO S/S OF DISTRESS NOTED. VSS. WHITE BOARD UPADATED. POC DISCUSSED W PT. A/O X3. DENIES PAIN AT THIS TIME. IVF D/C PER DR YOUNG ORDER. PT AGREEABLE FOR COVID TESTING FOR SNF STAY. WILL CONTINUE TO MONITOR. CALL LIGHT WITHIN REACH.
[2020-04-14 08:00] VITALS: BP 126/70
--- NOTE | 2020-04-14 08:08 | NUR ---
PROFESSOR OF GERMAN RECEIVED MESSAGE PATIENT IS WANTING REFERRAL SENT TO [facility]. PROFESSOR OF GERMAN FAXED REFERRAL. PATIENT IS A PRECERT AND WILL NEED PT/OT AND COVID RESULTS.
--- NOTE | 2020-04-14 09:00 | NUR ---
CM in to see patient. PT/OT in room. Discussed short term rehab and she remains agreeable to [facility]. hired worker following for referral.
--- NOTE | 2020-04-14 09:10 | NUR ---
PHYSICAL THERAPY Physical Therapy evaluation completed on 5th floor with full evaluation to follow. Recommend physical therapy per plan of care and SNF upon discharge. Thank you for this referral. Armando Mondragon SPT Mildred Sharma PT,DPT
--- NOTE | 2020-04-14 09:15 | NUR ---
Occupational Therapy evaluation completed on 5 with full eval to follow. 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 Recommend OT per POC and SNF to enable return home with . Uncertain when or where patient will have hip surgery. Thank you. Sarah Al OTR/l
[2020-04-14 12:00] VITALS: BP 109/53
--- NOTE | 2020-04-14 12:03 | NUR ---
TINNING EQUIPMENT TENDER FAXED PT/OT EVALS TO [facility] TO REVIEW.
--- NOTE | 2020-04-14 15:57 | NUR ---
Patient resting quietly with no c/o discomfort. Respirations easy and regular. Vital signs stable. No overt distress. HISSOM,RUDOLPH
[2020-04-14 16:00] VITALS: BP 110/57
[2020-04-14 20:00] VITALS: BP 137/82
--- NOTE | 2020-04-14 21:20 | NUR ---
THIEN MEDICATED WITH DILAUDID FOR COMPLAINTS OF RIGHT HIP PAIN. WILL MONITOR FOR EFFECTIVENESS. CALL LIGHT IN REACH.
--- NOTE | 2020-04-14 22:00 | NUR ---
DILAUDID EFFECTIVE. PATIENT RESTING IN BED WATCHING TV. DENIES COMPLAINTS OF PAIN OR DISCOMFORT AT THIS TIME. CALL LIGHT IN REACH.
[2020-04-15] VITALS: BP 115/61
--- NOTE | 2020-04-15 07:30 | NUR ---
TOOK OVER CARE OF PT AT THIS TIME. PT LYING IN BED, RESTING. EASILY AROUSED. NO COMPLAINTS VOICED. RESPIRATIONS EASY AND UNLABORED. CALL LIGHT IN REACH.
[2020-04-15 08:00] VITALS: BP 149/80
--- NOTE | 2020-04-15 09:00 | NUR ---
CM in to see patient. She is sitting up in her bedside recliner. She remains agreeable to [facility] and states Dr. Gutierrez is going to do her hip surgery here at the hospital. When medically stable, accepted, and precert is received she will be discharged to [facility]. plastics factory worker following.
--- NOTE | 2020-04-15 09:53 | NUR ---
OT NOTE Pt was seen this A.M. 1:1 for 20 minute OT session. Upon arrival pt was supine in bed. Pt identified by name and and had complaints of 6/10 L hip pain. Pt transferred supine to sit EOB with SBA, throughout pt required multiple breaks due to level of pain. Once sitting EOB pt completed sit to stand from bed level with CGA and use of w/w for UE support. Challenged pt's static standing tolerance needed for increased I in self care tasks and functional transfers. Pt was able to tolerate aprox 3 minutes at a time before sitting due to fatigue and pain. Functional mobility completed to the bathroom with CGA and use of w/w. There she transferred on to the standard commode with CGA and use of grab bar for UE support, however with this low transfer pt had complaints of 8/10 L hip pain. Clothing management completed with CGA for safety and toilet hygiene completed WI while seated. Sit to stand from standard commode with Mariama due to low surface. FUnctional mobility then completed to the sink where she stood sink side while washing her hands with CGA for safety. Functional mobility then completed back to the recliner with CGA and use of w/w. There she was left sitting upright with call light in hand, tray table in place, and phone in reach. At the end of this session an elevated commode seat was put in place for decreased pain and increased I, this elevated commode will be trialed in next session. Continue with rec D/C plan to SNF. NOE Bowers
--- NOTE | 2020-04-15 10:44 | NUR ---
DILAUDID GIVEN FOR C/O PAIN. WILL MONITOR FOR EFFECTIVENESS. PT SITTING UP IN CHAIR. CALL LIGHT IN REACH.
--- NOTE | 2020-04-15 11:10 | NUR ---
PHYSICAL THERAPY TREATMENT TIME: OUT 09:50 AM 18 MINUTES TOTAL Patient presented to therapy in supine with head of bed elevated and bed alarm on. Patient reports significant pain of 6/10 in the L side of low back and L knee. Patient gives informed consent for treatment. Patient was identified by name and on wristband. Patient performed supine <> sitting on EOB with SBA. Patient sat on EOB with SBA. STS from EOB with CGA. Patient ambulated with Wh Walker 15' x 1 bathroom with CGA. Patient STS <> commode with MIN A X 1. Patient ambulated another 20' x 1 with CGA and no LOB. Patient then sat in bedside chair and performed bilateral LE ther ex 2 x 10 reps each including LAQs, marches and Heel/toe raises for strengrthening the LEs in order to improve functional mobility. Patient was left in bedside chair with call light within reach and chair alarm attached to patient. Patient was 1:1 with this DISABILITY RATER for 18 minutes total. JERSON FOWLER DISABILITY RATER
[2020-04-15 11:31] LABS: BASO % 0.2 % (0.0-1.0); EOS # 0.3 10*3/uL (0.0-0.4); EOS % 2.6 % (1.0-4.0); LYMPH # 0.4 10*3/uL (1.3-4.4); LYMPH % 3.3 % (27.0-41.0); MEAN CELL VOLUME 84.7 fl (81.0-99.0); MEAN CORPUSCULAR HGB 24.6 pg (27.0-31.0); MEAN PLATELET VOLUME 9.8 fl (9.6-12.3); MONO # 0.7 10*3/uL (0.1-1.0); MONO % 5.1 % (3.0-9.0); NEUT # 11.3 10*3/uL (2.3-7.9); NEUT % 88.2 % (47.0-73.0); PLATELET COUNT AUTOMATED 234 10*3/uL (130-400); RED BLOOD COUNT 3.54 10*6/uL (4.10-5.10); WHITE BLOOD COUNT 12.8 10*3/uL (4.8-10.8)
--- NOTE | 2020-04-15 11:44 | NUR ---
PT STATES THAT DILAUDID IS EFFECTIVE.
[2020-04-15 12:00] VITALS: BP 133/69
--- NOTE | 2020-04-15 13:30 | NUR ---
OT NOTE Pt was seen this P.M. for second OT session consisting of 15 minutes. Upon arrival pt was sitting upright in the recliner. Pt identified by name and and had no complaints at this time. Sit to stand completed from chair level with Mariama due to low surface and use of w/w for UE support. Functional mobility completed to the bathroom with SBA and use of w/w. There she transferred on/off elevated commode with CGA for safety and use of grab bar for UE support. Clothing management completed with CGA and toilet hygiene completed NM while seated. She then stood sink side while washing her hands with CGA for safety. Functional mobility completed back to the EOB with SBA and use of w/w. There she transferred sit to supine with Mariama for assist with LLE. There she was left with call light in hand, tray table in place, and phone in reach. Continue with rec D/C plan to SNF. NOE Bowers
--- NOTE | 2020-04-15 14:27 | NUR ---
PHYSICAL THERAPY treatment time: OUT 1:28 PM 14 MINUTES TOTAL Patient presented to therapy in sitting in bedside chair with no new complaints. Patient gives informed consent for treatment. Patient was identified by name and on wristband. Patient STS out of bedside chair with SBA - CGA. Patient ambulated with Wh Walker and CGA for 20' x 1 to bathroom with no LOB. Patient STS from commode with CGA off of raised toilet set. Patient ambulated back to bedside with Wh Walker and CGA 15' x 1 with no LOB or other difficulty. Patient sit EOB > supine with SBA. Patient was left in supine in bed with head of bed elevated and chair alarm on. Patient's call light was left within reach. Patient was 1:1 with this COOK HOUSE LABORER for 14 minutes total. JERSON FOWLER COOK HOUSE LABORER
[2020-04-15 16:00] VITALS: BP 120/58
--- NOTE | 2020-04-15 18:41 | NUR ---
PT RESTING IN BED. RESPIRATIONS EASY AND UNLABORED. PT DENIES NEEDING PAIN MEDICATION AT THIS TIME. EVENING MEDS GIVEN. WILL MONITOR. CALL LIGHT IN REACH.
[2020-04-15 20:00] VITALS: BP 113/60
[2020-04-16] VITALS: BP 127/53
--- NOTE | 2020-04-16 07:17 | NUR ---
NEONATAL DOCTOR FAXED UPDATES TO [facility]. PRECERT IS REQUIRED. STILL WAITING ON ACCEPTANCE/DENIAL.
[2020-04-16 08:00] VITALS: BP 126/56
--- NOTE | 2020-04-16 10:40 | NUR ---
OT NOTE Pt was seen this A.M. 1:1 for 15 minute OT session. Upon arrival pt was supine in bed. Pt identified by name and and had complaints of 5-6/10 L hip pain and B knees. Pt transferred supine to sit EOB with modA for assist with upper body. Sit to stand then completed from bed level with CGA and use of w/w followed by functional mobility into the bathroom with CGA and use of w/w. There she transferred on/off elevated commode with CGA. Functional mobility completed back to the recliner. Challenged pt's standing activity tolerance needed for increased I and enhanced endurance, pt was able to tolerate aprox 3 minutes before sitting due to pain. Pt was left sitting upright in the recliner with call light in hand, tray table in place, and phone in reach. Continue with rec D/C plan to SNF. BRIANA Bowers/Cristhian
--- NOTE | 2020-04-16 10:45 | NUR ---
PHYSICAL THERAPY TREATMENT TIME: OUT 10:38 AM 17 MINUTES TOTAL Patient presented to therapy in supine with head of bed elevated and bed alarm on. Patient has report of 6/10 pain in the Hip. Patient is not on spO2, IVs, and does not have a catheter. Patient gives informed consent for treatment. Patient was identified by name and on wristband. Patient performed supine <> sit on EOB with MOD A X 2. Patient sat on EOB with SBA. Patient completed STS <> EOB with CGA. Patient ambulated with Wh Walker and CGA - SBA for 15' x 1 and a 2nd gait for 20' x 1 CGA - SBA. Patient has no LOB with gait. Patient did have increased crepitus and pain in the hips and knees while ambulating. Patient STS <> commode with CGA. Patient sat in bedside chair with SBA. Patient was left in bedside chair with call light within reach and LEs in low postion with tray table in front of patient. Patient was 1:1 with this BARREL LINER for for 17 minutes total. JERSON FOWLER BARREL LINER
--- NOTE | 2020-04-16 11:36 | NUR ---
Spoke to Dr. Gutierrez's office regarding outpatient appt. Appt for 04/30 at 9am. Patient wanted to know if her would be able to join. She states at this time it is unknown if patient's would be able to join d/t COVID precautions.
[2020-04-16 12:00] VITALS: BP 100/50
--- NOTE | 2020-04-16 13:35 | NUR ---
CM in to see patient. She is sitting up in bedside recliner. She is resting with her eyes closed. Will follow up at a later time. When medically stable, accepted, and precert is received she will be discharged to [facility].
--- NOTE | 2020-04-16 15:09 | NUR ---
CM in to see patient. She is sitting up in the bedside recliner. Discussed her appt with Dr. Gutierrez on 04/30 at 9am and at this time unsure of ability for her to come. She verbalized an understanding.
[2020-04-16 16:00] VITALS: BP 113/57
--- NOTE | 2020-04-16 16:30 | NUR ---
Patient resting quietly with no c/o discomfort. Respirations easy and regular. Vital signs stable. No overt distress. MARTI ACOSTA R
[2020-04-16 20:06] VITALS: BP 123/57
[2020-04-17] VITALS: BP 118/74
--- NOTE | 2020-04-17 07:14 | NUR ---
DOUGHNUT ICER MACHINE FAXED UPDATES TO [facility] AND ASKED THE PRECERT BE STARTED.
[2020-04-17 08:00] VITALS: BP 125/67
--- NOTE | 2020-04-17 09:15 | NUR ---
PHYSICAL THERAPY Patient seen this am 1:1 for therapy visit and was just awakening supine in bed upon therapist arrival. Patient identified by name / and joined by OT social and human services assistant for observation only this session. Patient reports 3/10 chronic L hip pain prior to transfering supine to sit EOB with MIN A x 1. Patient needed a minute or so of static EOB sit to collect herself before completing sit to stand transfer, CGA, with use of wh walker standing support. Patient ambulated 10'x 1 to bathroom, then additional 20' x 1, wh walker, CGA, demonstrating very slow, antalgic, "step to" gait pattern. Patient needed v/c to keep her head / eyes up with increased even stide, however was able to slightly improve posture, but not stride secondary to pain c/o. Patient returned to bedside chair and remained with increased SOB, recording SpO2 97%, HR 99 bpm. Patient remaiend in chair with call light, tray table and cell phone voicing no change in pain c/o. Will continue per POC as tolerated, total treatment time 17 minutes. Humberto Israel, CONVEYOR LOADER
--- NOTE | 2020-04-17 09:45 | NUR ---
OT NOTE Pt was seen this A.M. 1:1 for 25 minute OT session. Upon arrival pt was supine in bed. Pt identified by name and and had complaints of 3-4/10 L hip pain. Pt transferred supine to sit EOB with Mariama for assist with upper body. While sitting EOB pt donned pants with Mariama for inital start over her toes and was then able to complete with CGA. Sit to stand completed from bed level with CGA followed by functional mobility to the bathroom with CGA and use of w/w. There she transferred on/off elevated commode with CGA. Clothing management completed with CGA and toilet hygiene completed with distant supervision while seated. Pt then stood sink side while washing her hands with CGA for safety. Functional mobility completed back to the recliner with CGA and use of w/w. There she was left sitting upright with call light in hand, tray table in place, and body alarm activated for safety. Continue with rec D/C plan to SNF. NOE Bowers
[2020-04-17 12:00] VITALS: BP 100/58
[2020-04-17 16:00] VITALS: BP 100/50
--- NOTE | 2020-04-17 19:30 | NUR ---
PATIENT RESTING IN BED. ASSESSMENT COMPLETE. DENIES ANY NEEDS AT THIS TIME. CALL LIGHT WITHIN REACH.
[2020-04-17 20:00] VITALS: BP 141/73
[2020-04-18] VITALS: BP 116/53
--- NOTE | 2020-04-18 01:46 | NUR ---
24 HR chart check completed.
[2020-04-18 06:40] LABS: BASO % 0.3 % (0.0-1.0); EOS # 0.4 10*3/uL (0.0-0.4); EOS % 3.3 % (1.0-4.0); LYMPH # 1.1 10*3/uL (1.3-4.4); LYMPH % 8.8 % (27.0-41.0); MEAN CELL VOLUME 86.6 fl (81.0-99.0); MEAN CORPUSCULAR HGB 24.9 pg (27.0-31.0); MEAN CORPUSCULAR HGB CONC 28.7 g/dl (33.0-37.0); MEAN PLATELET VOLUME 10.1 fl (9.6-12.3); MONO # 0.5 10*3/uL (0.1-1.0); MONO % 4.2 % (3.0-9.0); NEUT # 9.9 10*3/uL (2.3-7.9); NEUT % 82.6 % (47.0-73.0); PLATELET COUNT AUTOMATED 263 10*3/uL (130-400); RED BLOOD COUNT 3.58 10*6/uL (4.10-5.10); RED CELL DISTRI WIDTH 15.6 % (0-14.5)
[2020-04-18] MEDS ORDERED: OMNICEF300 MG PO (06:45)
[2020-04-18] MEDS ORDERED: MIRTAZAPINE15 M2 PO (06:45)
[2020-04-18 07:06] LABS: BUN 10 mg/dl (7-24); CHLORIDE 109 mmol/L (98-107); CREATININE 0.76 mg/dL (0.55-1.02); POTASSIUM 4.2 mmol/L (3.5-5.1); SODIUM 144 mmol/L (136-145)
[2020-04-18 08:00] VITALS: BP 147/79
--- NOTE | 2020-04-18 08:34 | NUR ---
PRECERT IS PENDING. RISK MANAGEMENT PROFESSIONAL COMPLETED HENS.
--- NOTE | 2020-04-18 09:12 | NUR ---
PHYSICAL THERAPY UPON ATTEMPT THIS A.M. PT REPROTED THAT PT DID NOT SLEEP WELL LAST NIGHT AND WOULD LIKE TO REST A LITTLE LONGER. PHYSICLA THERAPY WILL ATTEMPT AGAIN AT A LATER DATE/TIME. MORA EDEN PTA
--- NOTE | 2020-04-18 09:24 | NUR ---
Discussed discharge planning with Dr. Ogden. Informed waiting on precert for patient to go to [facility].
--- NOTE | 2020-04-18 10:40 | NUR ---
PHYSICAL THERAPY CO-SIGN I approve of the Physical Therapy notes written above. BREE ADORNO PT,DPT
--- NOTE | 2020-04-18 10:53 | NUR ---
OT NOTE Pt was seen this A.M. 1:1 for 20 minute OT session. Upon arrival pt was supine in bed. Pt identified by name and and had complaints of 4/10 L hip pain. Pt transferred supine to sit EOB with Mariama for assist with Upper body. Pt completed sit to stand from bed level with CGA. Challenged pt's static standing tolerance needed for increased I in self care tasks and functional transfers. Pt was able to tolerate aprox 4 minutes at a time before sitting due to fatigue. Functional mobility completed to the bathroom with CGA and use of w/w. There she transferred on/off elevated commode with CGA. Functional mobility completed to the recliner with CGA and use of w/w. There she was left with call light in hand, tray table in place, and phone in reach. Continue with rec D/C plan to SNF. BRIANA Bowers/Cristhian
--- NOTE | 2020-04-18 11:19 | NUR ---
MATCH UP WORKER INFORMED OF PATIENT DISCHARGE. MATCH UP WORKER SPOKE WITH MARTINEZ RUBIN. MATCH UP WORKER ARRANGED FOR [facility] TO TRANSPORT THE PATIENT AT 1:30PM. THEY WILL PICK HER UP AT [facility] [address]. MATCH UP WORKER INFORMED RUDDY SRIVASTAVA OF TRANSPORT. MATCH UP WORKER TO FAX DISCHARGE ORDERS TO [facility]. MATCH UP WORKER ATTEMPTED TO CALL PATIENTS [place]. MATCH UP WORKER LEFT MESSAGE ON THE VOICEMAIL EXPLAINING DISCHARGE.
--- NOTE | 2020-04-18 13:34 | NUR ---
Discharge instructions reviewed with patient/family. Patient receptive and verbalizes understanding. Follow-up care arranged. Written instructions given to patient/family. CARYN MUNOZ
--- NOTE | 2020-04-21 18:07 | NUR ---
OCCUPATIONAL THERAPY CO-SIGN I approve of the Occupational Therapy notes written above. YOVANNY WEBBER OTR/Cristhian
== END 2020-04-18 13:34 | disposition other institution (70) | DRG 683 ==
LOC: ED 19:03 → EDHOLD 21:20 → 5E 21:20
PROVIDERS: Internal Medicine; ADMIT Internal Medicine; ATTEND Internal Medicine
DX: N17.9 Acute kidney failure, unspecified (principal); N30.00 Acute cystitis without hematuria; M87.9 Osteonecrosis, unspecified; E44.0 Moderate protein-calorie malnutrition; D84.9 Immunodeficiency, unspecified; E27.3 Drug-induced adrenocortical insufficiency; R62.7 Adult failure to thrive; M05.752 Rheumatoid arthritis with rheumatoid factor of left hip without organ or systems involvement; N18.31 Chronic kidney disease, stage 3a; M05.751 Rheumatoid arthritis with rheumatoid factor of right hip without organ or systems involvement; R00.0 Tachycardia, unspecified; F32.9 Major depressive disorder, single episode, unspecified; I12.9 Hypertensive chronic kidney disease with stage 1 through stage 4 chronic kidney disease, or unspecified chronic kidney disease; G89.29 Other chronic pain; L40.50 Arthropathic psoriasis, unspecified; T38.0X5A Adverse effect of glucocorticoids and synthetic analogues, initial encounter; Z68.27 Body mass index [BMI] 27.0-27.9, adult; Z90.5 Acquired absence of kidney; Y92.89 Other specified places as the place of occurrence of the external cause; Z20.828 Contact with and (suspected) exposure to other viral communicable diseases

== ENCOUNTER 2020-05-07 19:06 | Inpatient (IN) | payer OTHER ==
[~2020-05-07] VITALS: Ht 168 cm; Wt 73.5 kg
[~2020-05-07 19:06] MED LIST changes: +MIRTAZAPINE15 M2 PO; +OMNICEF300 MG PO
[2020-05-07 19:07] VITALS: BP 128/78
--- NOTE | 2020-05-07 19:33 | NUR ---
WENT IN PT ROOM, PT HAD EMISIS, GREENISH IN COLOR.
[2020-05-07 20:00] LABS: ALBUMIN 2.7 gm/dl (3.1-4.5); CREATININE 1.25 mg/dL (0.55-1.02); TOTAL PROTEIN 7.4 gm/dL (6.4-8.2)
[2020-05-07 20:43] LABS: HEMATOCRIT 38.4 % (37.0-47.0); MEAN CELL VOLUME 79.8 fl (81.0-99.0); MEAN CORPUSCULAR HGB 23.1 pg (27.0-31.0); MEAN CORPUSCULAR HGB CONC 28.9 g/dl (33.0-37.0); MEAN PLATELET VOLUME 9.7 fl (9.6-12.3); PLATELET COUNT AUTOMATED 471 10*3/uL (130-400); RED BLOOD COUNT 4.81 10*6/uL (4.10-5.10); RED CELL DISTRI WIDTH 15.9 % (0-14.5); WHITE BLOOD COUNT 31.9 10*3/uL (4.8-10.8)
[2020-05-07 21:09] LABS: TOTAL CELLS COUNTED 100 #CELLS
[2020-05-07 21:11] LABS: PLATELET SUFFICIENCY HIGH (NORMAL)
--- NOTE | 2020-05-07 21:50 | NUR ---
PT UNABLE TO PROVIDE URINE SAMPLE STATES "I CANNOT GO I WILL LET YOU KNOW WHEN I NEED TO" PT ENCOURAGED
[2020-05-07 21:51] VITALS: BP 128/76
[2020-05-07 23:00] LABS: BILIRUBIN 2+ (Negative); BLOOD Negative (Negative); CLARITY Cloudy (Clear); COLOR Dark Yellow (Yellow); GLUCOSE Negative (Negative); KETONE 3+ (Negative); LEUKO ESTERASE 2+ (Negative); NITRITE Negative (Negative); PH 5.5 (4.5-8.0); SPECIFIC GRAVITY 1.025 (1.001-1.030)
[2020-05-07 23:29] LABS: BACTERIA 1+; WBC 41-50 wbc/hpf (0-5)
[2020-05-08] VITALS: BP 121/73
--- NOTE | 2020-05-08 00:12 | NUR ---
LEFT ARM ABRASION NOTED, PHOTO TAKEN
[2020-05-08 05:40] VITALS: BP 132/82
--- NOTE | 2020-05-08 05:40 | NUR ---
Time: 539 A 64 year old F admitted to under services of RACQUEL FINNEY MD. Pt. arrived via bed from ER. Chief complaint: N/V AND DRY HEAVES X 2 DAYS. INSTRUCTED BY TO COME TO ER FOR ELEVATED WBC. KALYANI BHATTI
[2020-05-08] MEDS ORDERED: DICLOFENAC SOD75 MG PO (05:53)
[2020-05-08] MEDS ORDERED: GOOD NEIGHBOR500 M2 PO (05:54)
--- NOTE | 2020-05-08 07:30 | NUR ---
TOOK OVER CARE OF PT AT THIS TIME. PT RESTING IN BED. RESPIRATIONS EASY AND UNLABORED ON ROOM AIR. HOB ELEVATED. WILL MONITOR. CALL LIGHT IN REACH.
--- NOTE | 2020-05-08 07:45 | NUR ---
DR YOUNG CONTACTED, ADMISSION ORDERS RECEIVED
[2020-05-08 08:00] VITALS: BP 175/92
--- NOTE | 2020-05-08 08:34 | NUR ---
PT GIVEN ZOFRAN VIA IVP FOR C/O NAUSEA. WILL MONITOR FOR EFFECTIVENESS.
--- NOTE | 2020-05-08 08:50 | NUR ---
OT NOTE Occupational therapy order received, chart reviewed, and attempted to see patient at bedside. Upon arrival, patient under nursing care and declined an OT evaluation at this time. Patient stating she does not feel well. Will check back. Thank you. Gissel Dumont, OTR/L
--- NOTE | 2020-05-08 08:50 | NUR ---
PT GIVEN BENADRYL 12.5 MG VIA IVP FOR C/O NAUSEA. WILL MONITOR FOR EFFECTIVENESS. CALL LIGHT IN REACH.
--- NOTE | 2020-05-08 08:55 | NUR ---
PHYSICAL THERAPY Inga paredes attempted to see pt this AM for assessment per nurse Delarosa just arrived from ED dept pt still not feeling well, nauseated. Pt declining any therapy or activity at this time will follow as appropriate. Caro Nguyen PT
--- NOTE | 2020-05-08 09:34 | NUR ---
ZOFRAN EFFECTIVE AT THIS TIME PER PT.
--- NOTE | 2020-05-08 09:50 | NUR ---
BENADRYL EFFECTIVE PER PT.
--- NOTE | 2020-05-08 11:15 | NUR ---
CONSULT CALLED TO DR GERRY RIVAS OFFICE.
--- NOTE | 2020-05-08 13:17 | NUR ---
ION-Malean in to talk to patient. Patient states lives at home with and daughter. There are 4 steps in the home. Physician: Dr Paige Ogden Pharmacy: [facility] Express services: no Patient's level of ADLs: INDEPENDENT Patient has working utilities: yes DME: f[employer] Follow-up physician's appointment after d/c: will need scheduled Does patient want to access PORTAL?: no Discharge plan: Pt was discharged from [facility] on 05/05/20. Pt states that she became nauseated and weak on the following day. Pt states that her and daughter will assist her with any needs that she may have at home. Pt denies the need for HH stating that she discharged from [facility] without HH needs. Await PT/OT evals and recommendations. Will discuss SNF or home PT/OT with pt if warranted. . REYES SIMEON
[2020-05-08 14:38] LABS: HEMATOCRIT 33.7 % (37.0-47.0); MEAN CELL VOLUME 80.8 fl (81.0-99.0); MEAN CORPUSCULAR HGB CONC 28.5 g/dl (33.0-37.0); MEAN PLATELET VOLUME 9.6 fl (9.6-12.3); PLATELET COUNT AUTOMATED 365 10*3/uL (130-400); RED BLOOD COUNT 4.17 10*6/uL (4.10-5.10); RED CELL DISTRI WIDTH 15.9 % (0-14.5)
[2020-05-08 14:47] LABS: ALBUMIN 2.1 gm/dl (3.1-4.5); ALKALINE PHOSPHATASE 206 U/L (45-117); BUN 12 mg/dl (7-24); CHLORIDE 109 mmol/L (98-107); CREATININE 0.82 mg/dL (0.55-1.02); POTASSIUM 3.9 mmol/L (3.5-5.1); SGOT/AST 8 IU/L (3-35); SGPT/ALT 13 U/L (12-78); SODIUM 141 mmol/L (136-145)
[2020-05-08 15:21] LABS: TOTAL CELLS COUNTED 100 #CELLS
[2020-05-08 15:22] LABS: PLATELET SUFFICIENCY NORMAL (NORMAL)
[2020-05-08 16:00] VITALS: BP 146/79
[2020-05-08 20:00] VITALS: BP 121/73
[2020-05-09] VITALS: BP 113/73; BP 172/74
[2020-05-09 06:16] LABS: BASO # 0.1 10*3/uL (0.0-0.1); BASO % 0.3 % (0.0-1.0); EOS # 0.5 10*3/uL (0.0-0.4); EOS % 3.3 % (1.0-4.0); LYMPH # 0.6 10*3/uL (1.3-4.4); LYMPH % 3.9 % (27.0-41.0); MEAN CELL VOLUME 82.1 fl (81.0-99.0); MEAN CORPUSCULAR HGB 22.6 pg (27.0-31.0); MEAN CORPUSCULAR HGB CONC 27.5 g/dl (33.0-37.0); MEAN PLATELET VOLUME 9.5 fl (9.6-12.3); MONO # 0.5 10*3/uL (0.1-1.0); MONO % 2.9 % (3.0-9.0); NEUT # 13.9 10*3/uL (2.3-7.9); NEUT % 88.6 % (47.0-73.0); PLATELET COUNT AUTOMATED 324 10*3/uL (130-400); RED CELL DISTRI WIDTH 15.8 % (0-14.5); WHITE BLOOD COUNT 15.7 10*3/uL (4.8-10.8)
[2020-05-09 06:38] LABS: BUN 14 mg/dl (7-24); CHLORIDE 111 mmol/L (98-107); CREATININE 0.96 mg/dL (0.55-1.02); POTASSIUM 3.5 mmol/L (3.5-5.1); SODIUM 143 mmol/L (136-145)
--- NOTE | 2020-05-09 07:30 | NUR ---
TOOK OVER CARE OF PT AT THIS TIME. PT RESTING IN BED. RESPIRATIONS EASY AND UNLABORED ON ROOM AIR. NO S/S OF DISTRESS NOTED. NO COMPLAINTS VOICED. WILL CONTINUE TO MONITOR PT. CALL LIGHT IN REACH.
[2020-05-09 08:00] VITALS: BP 144/70
--- NOTE | 2020-05-09 08:35 | NUR ---
PHYSICAL THERAPY PT evaluation attempted this date. Patient refusing skilled PT services stating, "It's too painful. Sitting on the edge of the bed, I feel like I'm being cut in half. I'm not going to torture myself like that." Educated patient on importance of getting up and moving around at the hospital to ensure she is able to safety get into her home. At this time, patient is refusing SNF or Home Health services for therapy. Patient has 20 steps to enter her home, and 15 additional steps to get to her second level bedroom/bathroom. Nursing and Case Management aware of concerns. Will attempt PT evaluation at a later time/date. Mildred Sharma,PT,DPT
--- NOTE | 2020-05-09 08:35 | NUR ---
OT NOTE Occupational therapy order received, chart reviewed, and attempted to see patient at bedside. Nursing gave approval to see patient. Patient supine in bed with HOB elevated upon arrival. Following introduction and an explanation of the benefits of OT and OOB activity, patient declined an OT eval at this time. Patient reported "It's too painful. Sitting on the edge of the bed, I feel like I'm being cut in half...I'm not going to torture myself like that." Patient declined trying to sit EOB, standing, or using a BSC. Patient stated "If you were in this much pain, you would not want to move either." Patient has 20 steps to enter the home with an additional 15 steps to the 2nd floor bedroom and bathroom, no 1st floor set-up. Nursing and case management aware of concerns. Patient declining therapy at a SNF or . Will check back. Thank you. Gissel Dumont, OTR/L
--- NOTE | 2020-05-09 10:39 | NUR ---
PHYSICAL THERAPY Physical Therapy evaluation completed on 5E with full evaluation to follow. Low complexity skilled PT evaluation per chart review and evaluation, [id number]. Recommend physical therapy per plan of care and SNF vs home health with 24hr care and assist upon discharge. Thank you for this referral. Mildred Sharma,PT,DPT
--- NOTE | 2020-05-09 10:45 | NUR ---
Occupational Therapy evaluation completed on five with full evaluation to follow. Recommend occupational therapy per plan of care and SNF upon discharge. Thank you for this referral. Gissel Dmuont OTR/L
--- NOTE | 2020-05-09 11:53 | NUR ---
Attempted to meet with pt this AM. However, pt was sleeping soundly. Phoned pt's Chidi and spoke to him about pt's discharge needs. Chidi stated that it is difficult to get pt into the house, but once pt is in the home, there are no problems. Chidi stated that he has no concerns about pt returning home. His only voiced concern was that pt continues with UTIs.
[2020-05-09 16:00] VITALS: BP 107/69
--- NOTE | 2020-05-09 17:00 | NUR ---
PT RESTING IN BED. RESPIRATIONS UNLABORED. NO S/S OF DISTRESS. PT EATING DINNER. CALL LIGHT IN REACH.
--- NOTE | 2020-05-09 19:46 | NUR ---
PHYSICIAN STATES TO D/C 0.9NS IV FLUIDS. UPDATED ON ORDERS AND EMAR.
[2020-05-10] VITALS: BP 96/55
[2020-05-10 07:03] LABS: BASO # 0.1 10*3/uL (0.0-0.1); BASO % 0.3 % (0.0-1.0); EOS # 0.6 10*3/uL (0.0-0.4); EOS % 4.1 % (1.0-4.0); HEMATOCRIT 28.7 % (37.0-47.0); LYMPH # 0.7 10*3/uL (1.3-4.4); LYMPH % 4.8 % (27.0-41.0); MEAN CELL VOLUME 81.8 fl (81.0-99.0); MEAN CORPUSCULAR HGB 23.4 pg (27.0-31.0); MEAN CORPUSCULAR HGB CONC 28.6 g/dl (33.0-37.0); MEAN PLATELET VOLUME 9.8 fl (9.6-12.3); MONO # 0.4 10*3/uL (0.1-1.0); MONO % 2.7 % (3.0-9.0); NEUT % 87.3 % (47.0-73.0); PLATELET COUNT AUTOMATED 308 10*3/uL (130-400); RED BLOOD COUNT 3.51 10*6/uL (4.10-5.10); WHITE BLOOD COUNT 14.9 10*3/uL (4.8-10.8)
[2020-05-10 07:31] LABS: BUN 15 mg/dl (7-24); CHLORIDE 108 mmol/L (98-107); CREATININE 1.08 mg/dL (0.55-1.02); POTASSIUM 3.4 mmol/L (3.5-5.1); SODIUM 142 mmol/L (136-145)
[2020-05-10 08:00] VITALS: BP 116/67
--- NOTE | 2020-05-10 09:49 | NUR ---
FLUIDS PER ORDER STARTED TO LAC IV, FLUSHES WITH EASE. NO COMPLAINTS VOICED, CALL LIGHT WITHIN REACH.
[2020-05-10 12:00] VITALS: BP 111/64
[2020-05-10 16:00] VITALS: BP 116/64
--- NOTE | 2020-05-10 19:30 | NUR ---
TOOK OVER CARE OF PT AT THIS TIME. PT RESTING IN BED. RESPIRATIONS EASY AND UNLABORED ON ROOM AIR. NO S/S OF DISTRESS. CALL LIGHT IN REACH.
[2020-05-10 20:00] VITALS: BP 124/68
[2020-05-11] VITALS: BP 145/74
--- NOTE | 2020-05-11 04:33 | NUR ---
PT SLEEPING IN BED. RESPIRATIONS EASY AND UNLABORED. HR WNL. IV FLUIDS INFUSING PER ORDERS. NO DISTRESS NOTED. CALL LIGHT IN REACH.
[2020-05-11 06:50] LABS: BASO % 0.3 % (0.0-1.0); EOS # 0.5 10*3/uL (0.0-0.4); EOS % 3.9 % (1.0-4.0); LYMPH # 0.8 10*3/uL (1.3-4.4); LYMPH % 6.2 % (27.0-41.0); MEAN CELL VOLUME 80.7 fl (81.0-99.0); MEAN CORPUSCULAR HGB 23.1 pg (27.0-31.0); MEAN CORPUSCULAR HGB CONC 28.6 g/dl (33.0-37.0); MEAN PLATELET VOLUME 9.6 fl (9.6-12.3); MONO # 0.6 10*3/uL (0.1-1.0); MONO % 4.3 % (3.0-9.0); NEUT # 11.2 10*3/uL (2.3-7.9); NEUT % 84.5 % (47.0-73.0); PLATELET COUNT AUTOMATED 296 10*3/uL (130-400); RED BLOOD COUNT 3.47 10*6/uL (4.10-5.10); RED CELL DISTRI WIDTH 15.8 % (0-14.5); WHITE BLOOD COUNT 13.3 10*3/uL (4.8-10.8)
[2020-05-11 07:10] LABS: BUN 14 mg/dl (7-24); CHLORIDE 112 mmol/L (98-107); POTASSIUM 3.7 mmol/L (3.5-5.1); SODIUM 143 mmol/L (136-145)
[2020-05-11 08:00] VITALS: BP 166/80
--- NOTE | 2020-05-11 08:10 | NUR ---
pt resting in bed. no distress noted. will monitor
[2020-05-11 12:00] VITALS: BP 140/71
[2020-05-11 16:00] VITALS: BP 124/72
[2020-05-11 20:00] VITALS: BP 126/63
--- NOTE | 2020-05-11 22:13 | NUR ---
IV BENADRYL ADMINISTERED FOR C/O MILD NAUSEA AND RESTLESSNESS. WILL MONITOR EFFECTIVENESS. CALL LIGHT IN REACH.
--- NOTE | 2020-05-11 23:00 | NUR ---
EARLIER MEDICATION APPEARS EFFECTIVE. PT RESTING IN BED WITH EYES CLOSED. NO S/S OF DISTRESS NOTED.
[2020-05-12] VITALS: BP 135/72
--- NOTE | 2020-05-12 02:09 | NUR ---
PT PLACED ON BEDPAN TO URINATE. 600 CCS URINE MEASURED. BRIEF CHANGED PT HAD SMALL AMOUNT OF URINARY INCONTINENCE EARLIER. BED LEFT LOCKED IN LOW POSITION, CALL LIGHT IN REACH. WILL MONITOR.
--- NOTE | 2020-05-12 07:30 | NUR ---
PT RESTING IN BED.RESPS EASY AND NON LABORED. NO S/S OF DISTRESS NOTED. VSS. WHITE BOARD UPDATED. POC DISCUSSED W PT. A/OX3. FALL PRECAUTIONS MAINTAINED. CALL LIGHT WITHIN REACH. IVF D/C PER DR YOUNG ORDER.
[2020-05-12] MEDS ORDERED: OMNICEF300 MG PO (10:48)
[2020-05-12 11:40] VITALS: BP 132/67
--- NOTE | 2020-05-12 11:54 | NUR ---
Met with pt who states that she is feeling much better. Continues to deny any needs at discharge. Will return home with her and daughter.
--- NOTE | 2020-05-12 12:22 | NUR ---
Nutritional Support Services Note: Appetite has improved. Continue to encourage good po intake of all meals. Abrasion noted to left arm. Regular diet as ordered appropriate at this time. Encourage fluids. Declines the neeed for a supplement. Will send a night snack. Pattie Hawkins Rdn Ld
--- NOTE | 2020-05-12 13:45 | NUR ---
OT NOTE Pt was seen this P.M. 1:1 for 20 minute OT session. Upon arrival pt was supine in bed. Pt identified by name and and had no complaints at this time. Pt transferred supine to sit EOB with CGA and verbal prompts/education for bed mobility techniques. Pt presented with good carry over. Pt completed sit to stand from bed level with modA X 2 and use of w/w for UE support. Challenged pt's static standing tolerance needed for increased I in self care tasks and functional transfers pt was able to tolerate aprox 1 minute at a time before sitting due to fatigue. Standing pivot completed from the EOB to the bedside commode with CGA and use of w/w. Pt transferred on to the bedside commode and off with Mariama and use of w/w for UE support. Standing pivot completed back from the bedside commode to the EOB with CGA and use of w/w. Pt transferred sit to supine with Mariama for assist with LLE. There she was left with call light in hand, tray table in place, and bed alarm activated for safety. Continue with rec D/C plan to SNF. BRIANA Bowers/Cristhian
--- NOTE | 2020-05-12 13:50 | NUR ---
PER DR GARRETT PT CAN DISCHARGE, DISCHARGE PRESCRIPTIONS READY. WILL INFORM DR YOUNG
--- NOTE | 2020-05-12 13:55 | NUR ---
PHYSICAL THERAPY Patient presented to therapy in supine in bed with head of bed elevated and bed alarm on. Patient is not on spO2 and does not have IVs infusing at this time. Patien gives informed consent for treatment. Patient was identified by name and on wristband. Patient performed supine < > sitting on EOB with SBA. Patient sat on EOB with SBA. Patient completed STS from EOB with MOD A X 2 from EOB with verbal cues of hand placement. Patient performed SPT to bedside chair with CGA and using Wh Walker. Patient completed STS from LOW CHAIR with with MIN A X 2. Patient SPT back to EOB with CGA. Patient sat on EOB and performed sitting Bilateral LE ther ex 2 x 10 reps each including LAQs, marches and heel/toe raises for strengthening the LEs in order to improve patient's functional mobility. Patient completed sitting on EOB > supine in bed with MIN A X 2. Patient moved herself up to head of bed with SBA. Patient was 1:1 with this PATTERN FILER for 20 minutes total. JERSON FOWLER PATTERN FILER
--- NOTE | 2020-05-12 14:58 | NUR ---
Patient resting quietly with no c/o discomfort. Respirations easy and regular. Vital signs stable. No overt distress. HISSOM,RUDOLPH
[2020-05-12 16:01] VITALS: BP 133/58
[2020-05-12 20:00] VITALS: BP 144/83
--- NOTE | 2020-05-12 20:00 | NUR ---
PATIENT LAYING IN BED WATCHING TELEVISION. VOICES NO COMPLAINTS. STATES "I FEEL GOOD!"RESPIRATIONS EASY, NON LABORED. VSS. BED IN LOWEST POSITION, CALL LIGHT WITHIN REACH. WILL CONTINUE TO MONITOR.
[2020-05-13] VITALS: BP 114/67
[2020-05-13 04:09] LABS: IMMUNOGLOBULIN M, QNT 22 mg/dL (26-217)
[2020-05-13 08:00] VITALS: BP 140/80
--- NOTE | 2020-05-13 11:24 | NUR ---
PT REFUSED DISCHRGE PHOTO'S, STATING IT IS A SCAB. I DID THIS TO MYSELF.
--- NOTE | 2020-05-13 11:26 | NUR ---
[facility] Discharge instructions reviewed with patient/family. Patient receptive and verbalizes understanding. Follow-up care arranged. Written instructions given to patient/family. ATIF BOX
--- NOTE | 2020-05-13 11:32 | NUR ---
Met with pt this AM. Pt continues to deny the need for home health services. Pt stated again that she just discharged from [facility] and there was no need for home health services when she left there. Educated pt about the benefits of home health including PT/OT. Pt continues to deny the need. This development writer had previously reached out to pt's Chidi who confirmed that home health was not needed.
--- NOTE | 2020-05-13 13:15 | NUR ---
Phoned pt to make sure that she returned home without any concerns. Pt stated that she hadn't made it home yet because she and her went out for lunch and her is currently in a store. Reminded pt again that HH was recommended and informed pt to call this documentation writer if pt would change her mind and agree to HH. Pt voiced understanding.
[2020-05-13 17:06] LABS: IGG SUBCLASS 1 198 mg/dL (248-810); IGG SUBCLASS 2 151 mg/dL (130-555); IGG SUBCLASS 3 9 mg/dL (15-102); IGG SUBCLASS 4 15 mg/dL (2-96); IMMUNOGLOBULIN G, QNT 428 mg/dL (586-1602)
--- NOTE | 2020-05-14 07:44 | NUR ---
OCCUPATIONAL THERAPY CO-SIGN I approve of the Occupational Therapy notes written above. AKOSUA BOOGIE, OTR/L
--- NOTE | 2020-05-14 07:51 | NUR ---
PHYSICAL THERAPY CO-SIGN I approve of the Physical Therapy notes written above. BREE ADORNO PT,DPT
[2020-05-14 16:09] LABS: IMMUNOGLOBULIN IgE 24 IU/mL (6-495)
== END 2020-05-13 12:11 | disposition home or self-care (01) | DRG 683 ==
LOC: ED 19:06 → 5E 23:41 → EDHOLD 23:41 → 5E 05-08 05:32
PROVIDERS: Internal Medicine; ADMIT Internal Medicine; ATTEND Internal Medicine
DX: N17.0 Acute kidney failure with tubular necrosis (principal); M87.9 Osteonecrosis, unspecified; N30.00 Acute cystitis without hematuria; E27.40 Unspecified adrenocortical insufficiency; E44.0 Moderate protein-calorie malnutrition; M87.88 Other osteonecrosis, other site; Z90.5 Acquired absence of kidney; M16.10 Unilateral primary osteoarthritis, unspecified hip; R62.7 Adult failure to thrive; N18.31 Chronic kidney disease, stage 3a; M06.9 Rheumatoid arthritis, unspecified; I12.9 Hypertensive chronic kidney disease with stage 1 through stage 4 chronic kidney disease, or unspecified chronic kidney disease; F32.9 Major depressive disorder, single episode, unspecified; E87.6 Hypokalemia; E86.0 Dehydration; Z79.52 Long term (current) use of systemic steroids; Z68.26 Body mass index [BMI] 26.0-26.9, adult

== ENCOUNTER 2020-05-17 23:45 | Inpatient (IN) | payer OTHER ==
[~2020-05-17] VITALS: Ht 170.1 cm; Wt 70.8 kg
[~2020-05-17 23:45] MED LIST changes: +DICLOFENAC SOD75 MG PO; +GOOD NEIGHBOR500 M2 PO
[2020-05-17 23:54] VITALS: BP 114/60
[2020-05-18] VITALS (8 sets, daily range): BP systolic 104–142; BP diastolic 58–90
[2020-05-18 00:48] LABS: HEMATOCRIT 37.1 % (37.0-47.0); MEAN CELL VOLUME 81.2 fl (81.0-99.0); MEAN CORPUSCULAR HGB CONC 28.3 g/dl (33.0-37.0); MEAN PLATELET VOLUME 9.6 fl (9.6-12.3); PLATELET COUNT AUTOMATED 413 10*3/uL (130-400); RED BLOOD COUNT 4.57 10*6/uL (4.10-5.10); RED CELL DISTRI WIDTH 16.9 % (0-14.5); WHITE BLOOD COUNT 28.2 10*3/uL (4.8-10.8)
[2020-05-18 01:09] LABS: TOTAL CELLS COUNTED 100 #CELLS
[2020-05-18 01:10] LABS: OVALOCYTES FEW
[2020-05-18 01:11] LABS: ALBUMIN 2.4 gm/dl (3.1-4.5); CREATININE 1.23 mg/dL (0.55-1.02); POTASSIUM 3.9 mmol/L (3.5-5.1); TOTAL PROTEIN 6.9 gm/dL (6.4-8.2)
[2020-05-18 01:12] LABS: PLATELET SUFFICIENCY HIGH (NORMAL)
[2020-05-18 05:23] LABS: BILIRUBIN Negative (Negative); BLOOD Negative (Negative); CLARITY Cloudy (Clear); COLOR Dark Yellow (Yellow); GLUCOSE Negative (Negative); KETONE 2+ (Negative); SPECIFIC GRAVITY >= 1.030 (1.001-1.030)
[2020-05-18 05:24] LABS: BACTERIA 1+; LEUKO ESTERASE 1+ (Negative); MUCOUS 2+; NITRITE Negative (Negative); PH 5.5 (4.5-8.0)
[2020-05-19] VITALS (9 sets, daily range): BP systolic 101–131; BP diastolic 52–68
[2020-05-19 07:04] LABS: BASO % 0.3 % (0.0-1.0); EOS # 0.5 10*3/uL (0.0-0.4); EOS % 4.1 % (1.0-4.0); HEMATOCRIT 28.3 % (37.0-47.0); LYMPH # 0.7 10*3/uL (1.3-4.4); LYMPH % 6.5 % (27.0-41.0); MEAN CELL VOLUME 81.6 fl (81.0-99.0); MEAN CORPUSCULAR HGB 23.1 pg (27.0-31.0); MEAN CORPUSCULAR HGB CONC 28.3 g/dl (33.0-37.0); MEAN PLATELET VOLUME 9.9 fl (9.6-12.3); MONO # 0.5 10*3/uL (0.1-1.0); NEUT # 9.5 10*3/uL (2.3-7.9); NEUT % 83.9 % (47.0-73.0); PLATELET COUNT AUTOMATED 307 10*3/uL (130-400); RED BLOOD COUNT 3.47 10*6/uL (4.10-5.10); RED CELL DISTRI WIDTH 17.1 % (0-14.5); WHITE BLOOD COUNT 11.3 10*3/uL (4.8-10.8)
[2020-05-19 07:25] LABS: BUN 9 mg/dl (7-24); CHLORIDE 108 mmol/L (98-107); CREATININE 0.77 mg/dL (0.55-1.02); POTASSIUM 3.7 mmol/L (3.5-5.1); SODIUM 140 mmol/L (136-145)
[2020-05-19 10:56] LABS: ALBUMIN 1.8 gm/dl (3.1-4.5); ALKALINE PHOSPHATASE 107 U/L (45-117); BUN 9 mg/dl (7-24); CHLORIDE 107 mmol/L (98-107); CREATININE 0.83 mg/dL (0.55-1.02); POTASSIUM 3.7 mmol/L (3.5-5.1); SGOT/AST 11 IU/L (3-35); SGPT/ALT 12 U/L (12-78); SODIUM 140 mmol/L (136-145); TOTAL PROTEIN 5.3 gm/dL (6.4-8.2)
[2020-05-20] VITALS: BP 119/58
[2020-05-20 07:27] LABS: BUN 6 mg/dl (7-24); CHLORIDE 109 mmol/L (98-107); CREATININE 0.69 mg/dL (0.55-1.02); POTASSIUM 3.7 mmol/L (3.5-5.1); SODIUM 139 mmol/L (136-145)
[2020-05-20 12:00] VITALS: BP 124/66
[2020-05-20 16:00] VITALS: BP 132/90
[2020-05-20 20:00] VITALS: BP 139/80
[2020-05-21] VITALS: BP 123/65
[2020-05-21 07:04] LABS: BUN 6 mg/dl (7-24); CHLORIDE 111 mmol/L (98-107); POTASSIUM 3.3 mmol/L (3.5-5.1); SODIUM 143 mmol/L (136-145)
[2020-05-21 08:00] VITALS: BP 130/64
[2020-05-21 12:00] VITALS: BP 127/62
[2020-05-21 16:00] VITALS: BP 116/57
[2020-05-21 20:00] VITALS: BP 132/80
[2020-05-22] VITALS: BP 135/75
[2020-05-22 08:00] VITALS: BP 137/87
[2020-05-22 12:00] VITALS: BP 110/55
[2020-05-22] MEDS ORDERED: Clarithromycin250 MG PO (13:11)
[2020-05-22] MEDS ORDERED: PANTOPRAZOLE SO40 MG PO (13:11)
[2020-05-22] MEDS ORDERED: AMOXICILLIN500 M2 PO (13:11)
[2020-05-22 16:00] VITALS: BP 103/63
== END 2020-05-22 18:08 | disposition home or self-care (01) | DRG 871 ==
LOC: ED 23:45 → 5E 05-18 05:19 → EDHOLD 05-18 05:19 → 5E 05-18 07:28
PROVIDERS: Emergency Medicine; Internal Medicine Gastroenterology; Surgery; ADMIT Internal Medicine; ATTEND Internal Medicine
PROC: 0DB68ZX Excision of Stomach, Via Natural or Artificial Opening Endoscopic, Diagnostic (ICD-10-PCS; principal; 2020-05-19)
DX: A41.9 Sepsis, unspecified organism (principal); E43 Unspecified severe protein-calorie malnutrition; M87.9 Osteonecrosis, unspecified; E27.40 Unspecified adrenocortical insufficiency; N39.0 Urinary tract infection, site not specified; A04.8 Other specified bacterial intestinal infections; N17.9 Acute kidney failure, unspecified; R65.20 Severe sepsis without septic shock; M06.9 Rheumatoid arthritis, unspecified; I12.9 Hypertensive chronic kidney disease with stage 1 through stage 4 chronic kidney disease, or unspecified chronic kidney disease; N18.31 Chronic kidney disease, stage 3a; R62.7 Adult failure to thrive; T38.0X5A Adverse effect of glucocorticoids and synthetic analogues, initial encounter; E86.0 Dehydration; K21.00 Gastro-esophageal reflux disease with esophagitis, without bleeding; K59.00 Constipation, unspecified; Z20.828 Contact with and (suspected) exposure to other viral communicable diseases; K44.9 Diaphragmatic hernia without obstruction or gangrene; K29.60 Other gastritis without bleeding; Y92.89 Other specified places as the place of occurrence of the external cause; Z82.49 Family history of ischemic heart disease and other diseases of the circulatory system; Z80.9 Family history of malignant neoplasm, unspecified; Z68.26 Body mass index [BMI] 26.0-26.9, adult

== ENCOUNTER 2021-08-23 15:20 | Inpatient (IN) | payer OTHER ==
[~2021-08-23] VITALS: Ht 167.6 cm; Wt 65.0 kg
[~2021-08-23 15:20] MED LIST changes: +Clarithromycin250 MG PO
[2021-08-23 15:27] VITALS: BP 135/93
[2021-08-23 16:09] LABS: BASO # 0.1 10*3/uL (0.0-0.1); BASO % 0.5 % (0.0-1.0); EOS # 0.2 10*3/uL (0.0-0.4); EOS % 1.4 % (1.0-4.0); HEMATOCRIT 41.6 % (37.0-47.0); LYMPH % 7.6 % (27.0-41.0); MEAN CELL VOLUME 86.7 fl (81.0-99.0); MEAN CORPUSCULAR HGB 27.1 pg (27.0-31.0); MEAN CORPUSCULAR HGB CONC 31.3 g/dl (33.0-37.0); MEAN PLATELET VOLUME 9.8 fl (9.6-12.3); MONO # 0.9 10*3/uL (0.1-1.0); MONO % 7.2 % (3.0-9.0); NEUT # 10.4 10*3/uL (2.3-7.9); NEUT % 82.9 % (47.0-73.0); PLATELET COUNT AUTOMATED 278 10*3/uL (130-400); RED CELL DISTRI WIDTH 15.6 % (0-14.5); WHITE BLOOD COUNT 12.5 10*3/uL (4.8-10.8)
[2021-08-23 16:19] LABS: ACT PARTIAL THROMBO TIME 25.1 SECONDS (20.0-32.1)
[2021-08-23 16:24] LABS: ALKALINE PHOSPHATASE 148 U/L (45-117); BUN 13 mg/dl (7-24); CHLORIDE 105 mmol/L (98-107); CREATININE 0.93 mg/dL (0.55-1.02); POTASSIUM 3.9 mmol/L (3.5-5.1); SGOT/AST 9 IU/L (3-35); SGPT/ALT 13 U/L (12-78); SODIUM 140 mmol/L (136-145); TOTAL PROTEIN 7.8 gm/dL (6.4-8.2)
[2021-08-23 16:48] LABS: BILIRUBIN Negative (Negative); BLOOD Negative (Negative); CLARITY Cloudy (Clear); COLOR Dark Yellow (Yellow); GLUCOSE Negative (Negative); KETONE 4+ (Negative); LEUKO ESTERASE 2+ (Negative); NITRITE Positive (Negative); PH 6.5 (4.5-8.0); SPECIFIC GRAVITY 1.025 (1.001-1.030)
[2021-08-23 16:50] VITALS: BP 135/88
[2021-08-23 17:09] LABS: BACTERIA 4+; WBC 41-50 wbc/hpf (0-5)
[2021-08-23 17:50] VITALS: BP 135/84
[2021-08-23 18:00] VITALS: BP 144/77
[2021-08-24] VITALS: BP 122/62
[2021-08-24 06:06] LABS: BUN 13 mg/dl (7-24); CHLORIDE 110 mmol/L (98-107); CREATININE 0.81 mg/dL (0.55-1.02); POTASSIUM 3.7 mmol/L (3.5-5.1); SODIUM 140 mmol/L (136-145)
[2021-08-24 06:09] LABS: BASO % 0.5 % (0.0-1.0); EOS # 0.2 10*3/uL (0.0-0.4); LYMPH # 0.7 10*3/uL (1.3-4.4); LYMPH % 8.8 % (27.0-41.0); MEAN CELL VOLUME 88.9 fl (81.0-99.0); MEAN CORPUSCULAR HGB 27.2 pg (27.0-31.0); MEAN CORPUSCULAR HGB CONC 30.6 g/dl (33.0-37.0); MEAN PLATELET VOLUME 10.1 fl (9.6-12.3); MONO # 0.7 10*3/uL (0.1-1.0); MONO % 8.8 % (3.0-9.0); NEUT # 6.1 10*3/uL (2.3-7.9); NEUT % 78.5 % (47.0-73.0); PLATELET COUNT AUTOMATED 214 10*3/uL (130-400); RED BLOOD COUNT 3.71 10*6/uL (4.10-5.10); RED CELL DISTRI WIDTH 15.8 % (0-14.5); WHITE BLOOD COUNT 7.7 10*3/uL (4.8-10.8)
[2021-08-24 08:00] VITALS: BP 130/66; BP 132/70
[2021-08-24 12:00] VITALS: BP 107/55
[2021-08-24 16:00] VITALS: BP 127/65
[2021-08-24 20:00] VITALS: BP 119/62
[2021-08-24] MEDS ORDERED: VOLTAREN50 M1 PO (22:22)
[2021-08-25] VITALS: BP 115/49
[2021-08-25 05:59] LABS: BUN 13 mg/dl (7-24); CHLORIDE 112 mmol/L (98-107); CREATININE 0.83 mg/dL (0.55-1.02); POTASSIUM 3.8 mmol/L (3.5-5.1); SODIUM 142 mmol/L (136-145)
[2021-08-25 06:14] LABS: BASO % 0.4 % (0.0-1.0); EOS # 0.3 10*3/uL (0.0-0.4); EOS % 2.9 % (1.0-4.0); HEMATOCRIT 32.7 % (37.0-47.0); LYMPH # 0.5 10*3/uL (1.3-4.4); LYMPH % 4.9 % (27.0-41.0); MEAN CELL VOLUME 89.6 fl (81.0-99.0); MEAN CORPUSCULAR HGB 27.4 pg (27.0-31.0); MEAN CORPUSCULAR HGB CONC 30.6 g/dl (33.0-37.0); MEAN PLATELET VOLUME 10.2 fl (9.6-12.3); MONO # 0.6 10*3/uL (0.1-1.0); MONO % 5.8 % (3.0-9.0); NEUT # 8.3 10*3/uL (2.3-7.9); NEUT % 85.7 % (47.0-73.0); PLATELET COUNT AUTOMATED 194 10*3/uL (130-400); RED BLOOD COUNT 3.65 10*6/uL (4.10-5.10); RED CELL DISTRI WIDTH 15.7 % (0-14.5); WHITE BLOOD COUNT 9.6 10*3/uL (4.8-10.8)
[2021-08-25 08:00] VITALS: BP 134/66
[2021-08-25 12:00] VITALS: BP 118/63
[2021-08-25 16:00] VITALS: BP 112/60
[2021-08-25 20:00] VITALS: BP 135/72
[2021-08-26] VITALS: BP 132/75
[2021-08-26 06:16] LABS: BUN 12 mg/dl (7-24); CHLORIDE 112 mmol/L (98-107); CREATININE 0.81 mg/dL (0.55-1.02); POTASSIUM 3.9 mmol/L (3.5-5.1); SODIUM 142 mmol/L (136-145)
[2021-08-26 06:27] LABS: BASO % 0.3 % (0.0-1.0); EOS # 0.3 10*3/uL (0.0-0.4); EOS % 4.4 % (1.0-4.0); HEMATOCRIT 31.7 % (37.0-47.0); LYMPH # 0.6 10*3/uL (1.3-4.4); LYMPH % 8.8 % (27.0-41.0); MEAN CELL VOLUME 90.1 fl (81.0-99.0); MEAN CORPUSCULAR HGB 27.3 pg (27.0-31.0); MEAN CORPUSCULAR HGB CONC 30.3 g/dl (33.0-37.0); MEAN PLATELET VOLUME 10.5 fl (9.6-12.3); MONO # 0.5 10*3/uL (0.1-1.0); MONO % 6.9 % (3.0-9.0); NEUT # 5.3 10*3/uL (2.3-7.9); NEUT % 79.3 % (47.0-73.0); PLATELET COUNT AUTOMATED 198 10*3/uL (130-400); RED BLOOD COUNT 3.52 10*6/uL (4.10-5.10); RED CELL DISTRI WIDTH 15.9 % (0-14.5); WHITE BLOOD COUNT 6.6 10*3/uL (4.8-10.8)
[2021-08-26 08:00] VITALS: BP 136/72
[2021-08-26] MEDS ORDERED: AUGMENTIN 875-875 MG PO (10:12)
[2021-08-26 12:00] VITALS: BP 126/69
== END 2021-08-26 12:00 | disposition home or self-care (01) | DRG 872 ==
LOC: ED 15:20 → 5E 17:11 → EDHOLD 17:11 → 5E 17:31
PROVIDERS: Emergency Medicine; ADMIT Internal Medicine; ATTEND Internal Medicine
DX: A41.9 Sepsis, unspecified organism (principal); D84.9 Immunodeficiency, unspecified; M87.852 Other osteonecrosis, left femur; N39.0 Urinary tract infection, site not specified; M06.9 Rheumatoid arthritis, unspecified; R65.20 Severe sepsis without septic shock; R62.7 Adult failure to thrive; I10 Essential (primary) hypertension

== ENCOUNTER → 2021-10-15 | Outpatient (CLI) | payer OTHER ==
[~2021-10-15] MED LIST changes: +VOLTAREN50 M1 PO
[2021-10-15 15:07] LABS: BASO # 0.1 10*3/uL (0.0-0.1); BASO % 0.3 % (0.0-1.0); EOS # 0.3 10*3/uL (0.0-0.4); EOS % 1.5 % (1.0-4.0); HEMATOCRIT 34.8 % (37.0-47.0); LYMPH # 1.4 10*3/uL (1.3-4.4); LYMPH % 7.3 % (27.0-41.0); MEAN CELL VOLUME 89.2 fl (81.0-99.0); MEAN CORPUSCULAR HGB 27.4 pg (27.0-31.0); MEAN CORPUSCULAR HGB CONC 30.7 g/dl (33.0-37.0); MEAN PLATELET VOLUME 10.4 fl (9.6-12.3); NEUT # 16.7 10*3/uL (2.3-7.9); NEUT % 85.2 % (47.0-73.0); PLATELET COUNT AUTOMATED 353 10*3/uL (130-400); RED CELL DISTRI WIDTH 15.1 % (0-14.5); WHITE BLOOD COUNT 19.6 10*3/uL (4.8-10.8)
[2021-10-15 15:38] LABS: CREATININE 1.31 mg/dL (0.55-1.02); POTASSIUM 4.1 mmol/L (3.5-5.1)
[2021-10-15 15:43] LABS: FREE T4 1.17 ng/dl (0.76-1.46); THYROID STIM HORMONE (HS) 1.48 uIU/ml (0.358-4.75)
[2021-10-16 09:10] LABS: VITAMIN D, 25-HYDROXY 28.5 ng/mL (30-100)
== END | disposition home or self-care (01) ==
LOC: LAB 14:33
PROVIDERS: ATTEND Internal Medicine
DX: R09.02 Hypoxemia (principal); Z23 Encounter for immunization; Z13.89 Encounter for screening for other disorder; R70.0 Elevated erythrocyte sedimentation rate; R79.82 Elevated C-reactive protein (CRP); I10 Essential (primary) hypertension; E55.9 Vitamin D deficiency, unspecified; D51.9 Vitamin B12 deficiency anemia, unspecified

== ENCOUNTER 2021-12-12 09:48 | Emergency (ER) | payer OTHER ==
[~2021-12-12] VITALS: Ht 167.6 cm; Wt 68.0 kg
[2021-12-12 09:57] VITALS: BP 149/73
[2021-12-12 11:09] LABS: BASO % 0.4 % (0.0-1.0); EOS # 0.2 10*3/uL (0.0-0.4); EOS % 2.2 % (1.0-4.0); HEMATOCRIT 37.4 % (37.0-47.0); LYMPH % 9.7 % (27.0-41.0); MEAN CELL VOLUME 94.7 fl (81.0-99.0); MEAN CORPUSCULAR HGB 28.4 pg (27.0-31.0); MEAN CORPUSCULAR HGB CONC 29.9 g/dl (33.0-37.0); MONO # 0.7 10*3/uL (0.1-1.0); MONO % 6.3 % (3.0-9.0); NEUT # 8.2 10*3/uL (2.3-7.9); PLATELET COUNT AUTOMATED 209 10*3/uL (130-400); RED BLOOD COUNT 3.95 10*6/uL (4.10-5.10); RED CELL DISTRI WIDTH 16.7 % (0-14.5); WHITE BLOOD COUNT 10.3 10*3/uL (4.8-10.8)
[2021-12-12 11:27] LABS: ALKALINE PHOSPHATASE 131 U/L (45-117); BUN 25 mg/dl (7-24); CHLORIDE 112 mmol/L (98-107); CREATININE 0.97 mg/dL (0.55-1.02); POTASSIUM 4.7 mmol/L (3.5-5.1); SGOT/AST 13 IU/L (3-35); SGPT/ALT 17 U/L (12-78); SODIUM 143 mmol/L (136-145); TOTAL PROTEIN 5.6 gm/dL (6.4-8.2)
[2021-12-12] MEDS ORDERED: TYLENOL325 M1 PO (15:29)
[2021-12-12] MEDS ORDERED: NAPROSYN500 MG PO (15:32)
[2021-12-12] MEDS ORDERED: HYDROCODONE-AC1 EAC1 PO (15:32)
== END 2021-12-12 15:42 | disposition home or self-care (01) ==
LOC: ED 09:48
PROVIDERS: Emergency Medicine
DX: M72.2 Plantar fascial fibromatosis (principal); R06.02 Shortness of breath; R79.1 Abnormal coagulation profile; N18.30 Chronic kidney disease, stage 3 unspecified; Z79.899 Other long term (current) drug therapy

== ENCOUNTER → 2022-01-08 | Outpatient (CLI) | payer OTHER ==
[~2022-01-08] MED LIST changes: +HYDROCODONE-AC1 EAC1 PO; +NAPROSYN500 MG PO; +TYLENOL325 M1 PO
== END | disposition home or self-care (01) ==
LOC: RAD 12-29 14:00
PROVIDERS: ATTEND Internal Medicine
DX: M81.0 Age-related osteoporosis without current pathological fracture (principal)

== ENCOUNTER 2022-01-15 12:19 | Emergency (ER) | payer OTHER ==
[~2022-01-15] VITALS: Ht 160 cm; Wt 68.0 kg
[2022-01-15 12:30] VITALS: BP 141/71
[2022-01-15 13:15] LABS: BASO # 0.1 10*3/uL (0.0-0.1); BASO % 0.4 % (0.0-1.0); EOS # 0.1 10*3/uL (0.0-0.4); EOS % 1.2 % (1.0-4.0); HEMATOCRIT 34.4 % (37.0-47.0); LYMPH # 0.8 10*3/uL (1.3-4.4); LYMPH % 6.7 % (27.0-41.0); MEAN CELL VOLUME 88.9 fl (81.0-99.0); MEAN CORPUSCULAR HGB 28.2 pg (27.0-31.0); MEAN CORPUSCULAR HGB CONC 31.7 g/dl (33.0-37.0); MEAN PLATELET VOLUME 10.1 fl (9.6-12.3); MONO # 0.8 10*3/uL (0.1-1.0); MONO % 6.8 % (3.0-9.0); NEUT # 9.9 10*3/uL (2.3-7.9); NEUT % 84.4 % (47.0-73.0); PLATELET COUNT AUTOMATED 252 10*3/uL (130-400); RED BLOOD COUNT 3.87 10*6/uL (4.10-5.10); RED CELL DISTRI WIDTH 13.9 % (0-14.5); WHITE BLOOD COUNT 11.7 10*3/uL (4.8-10.8)
[2022-01-15 13:36] LABS: ALKALINE PHOSPHATASE 116 U/L (45-117); BUN 17 mg/dl (7-24); CHLORIDE 107 mmol/L (98-107); CREATININE 1.01 mg/dL (0.55-1.02); SGOT/AST 11 IU/L (3-35); SGPT/ALT 10 U/L (12-78); SODIUM 141 mmol/L (136-145); TOTAL PROTEIN 6.2 gm/dL (6.4-8.2)
[2022-01-15] MEDS ORDERED: CEPHALEXIN500 M1 PO (14:10)
== END 2022-01-15 14:35 | disposition home or self-care (01) ==
LOC: ED 12:19
PROVIDERS: Nurse Practitioner Family
DX: S81.801A Unspecified open wound, right lower leg, initial encounter (principal); Z79.899 Other long term (current) drug therapy; Z98.890 Other specified postprocedural states; W22.8XXA Striking against or struck by other objects, initial encounter; Y93.89 Activity, other specified; Y92.89 Other specified places as the place of occurrence of the external cause; Y99.8 Other external cause status

== ENCOUNTER → 2022-01-19 | Outpatient (CLI) | payer OTHER | END | disposition home or self-care (01) | LOC: WOUNDCARE 01-16 07:07 | PROVIDERS: ATTEND Nurse Practitioner Family | DX: S81.801A Unspecified open wound, right lower leg, initial encounter (principal); M19.90 Unspecified osteoarthritis, unspecified site; X58.XXXA Exposure to other specified factors, initial encounter; Y93.89 Activity, other specified; Y92.89 Other specified places as the place of occurrence of the external cause; Y99.8 Other external cause status ==

== ENCOUNTER 2022-01-24 12:02 | Inpatient (IN) | payer OTHER ==
[~2022-01-24] VITALS: Ht 160 cm; Wt 70.0 kg
[2022-01-24 10:45] VITALS: BP 132/65
[2022-01-24 12:07] VITALS: BP 121/67
[2022-01-24 13:14] LABS: BASO # 0.1 10*3/uL (0.0-0.1); BASO % 0.4 % (0.0-1.0); EOS # 0.2 10*3/uL (0.0-0.4); EOS % 1.5 % (1.0-4.0); HEMATOCRIT 40.8 % (37.0-47.0); LYMPH # 1.1 10*3/uL (1.3-4.4); LYMPH % 7.3 % (27.0-41.0); MEAN CELL VOLUME 93.8 fl (81.0-99.0); MEAN CORPUSCULAR HGB 28.3 pg (27.0-31.0); MEAN CORPUSCULAR HGB CONC 30.1 g/dl (33.0-37.0); MEAN PLATELET VOLUME 10.4 fl (9.6-12.3); MONO # 0.9 10*3/uL (0.1-1.0); MONO % 5.6 % (3.0-9.0); NEUT # 12.8 10*3/uL (2.3-7.9); NEUT % 84.7 % (47.0-73.0); PLATELET COUNT AUTOMATED 256 10*3/uL (130-400); RED BLOOD COUNT 4.35 10*6/uL (4.10-5.10); RED CELL DISTRI WIDTH 13.3 % (0-14.5); WHITE BLOOD COUNT 15.1 10*3/uL (4.8-10.8)
[2022-01-24 13:27] LABS: ACT PARTIAL THROMBO TIME 25.9 SECONDS (20.0-32.1)
[2022-01-24 13:30] LABS: ALKALINE PHOSPHATASE 123 U/L (45-117); BUN 12 mg/dl (7-24); CHLORIDE 107 mmol/L (98-107); CREATININE 0.91 mg/dL (0.55-1.02); POTASSIUM 4.1 mmol/L (3.5-5.1); SGOT/AST 10 IU/L (3-35); SGPT/ALT 9 U/L (12-78); SODIUM 142 mmol/L (136-145); TOTAL PROTEIN 6.9 gm/dL (6.4-8.2)
[2022-01-24 14:33] LABS: BILIRUBIN 2+ (Negative); BLOOD Negative (Negative); CLARITY Cloudy (Clear); COLOR Dark Yellow (Yellow); GLUCOSE Negative (Negative); KETONE 4+ (Negative); LEUKO ESTERASE 3+ (Negative); NITRITE Negative (Negative); SPECIFIC GRAVITY 1.025 (1.001-1.030)
[2022-01-24 15:29] LABS: BACTERIA 2+; EPITHELIAL CELLS 31-40; HYALINE CAST 0-2; MUCOUS 1+; RBC 0-2 rbc/hpf (0-2); WBC TNTC wbc/hpf (0-5)
[2022-01-24 15:54] VITALS: BP 138/74
[2022-01-24 20:45] VITALS: BP 155/76
[2022-01-24 22:51] VITALS: BP 134/78
[2022-01-25 02:47] VITALS: BP 132/72
[2022-01-25 05:27] VITALS: BP 155/76
[2022-01-25 09:30] VITALS: BP 124/72
[2022-01-25 10:45] VITALS: BP 132/65
[2022-01-25 16:00] VITALS: BP 136/62
[2022-01-25 20:00] VITALS: BP 140/68
[2022-01-26] VITALS: BP 155/68
[2022-01-26 06:16] LABS: MEAN CELL VOLUME 91.8 fl (81.0-99.0); MEAN CORPUSCULAR HGB 28.6 pg (27.0-31.0); MEAN CORPUSCULAR HGB CONC 31.1 g/dl (33.0-37.0); MEAN PLATELET VOLUME 10.4 fl (9.6-12.3); PLATELET COUNT AUTOMATED 255 10*3/uL (130-400); RED BLOOD COUNT 3.92 10*6/uL (4.10-5.10); RED CELL DISTRI WIDTH 13.6 % (0-14.5)
[2022-01-26 06:31] LABS: BUN 10 mg/dl (7-24); CHLORIDE 108 mmol/L (98-107); CREATININE 1.05 mg/dL (0.55-1.02); POTASSIUM 3.5 mmol/L (3.5-5.1); SODIUM 139 mmol/L (136-145)
[2022-01-26 06:52] LABS: MANUAL DIFF REFLEX YES
[2022-01-26 07:52] LABS: BURR CELLS FEW; DOHLE BODIES FEW; OVALOCYTES FEW; PLATELET SUFFICIENCY NORMAL (NORMAL); POLYCHROMASIA SLIGHT; TOTAL CELLS COUNTED 100 #CELLS; TOXIC GRANULATION SLIGHT
[2022-01-26 08:00] VITALS: BP 113/61
[2022-01-26 12:00] VITALS: BP 115/63
[2022-01-26 16:00] VITALS: BP 130/57
[2022-01-26] MEDS ORDERED: ALENDRONATE SOD70 M1 PO (16:32)
[2022-01-26] MEDS ORDERED: OYSTER SHELL 51 EAC5 PO (16:34)
[2022-01-26 20:46] VITALS: BP 126/63
[2022-01-27] VITALS: BP 102/58
[2022-01-27 08:00] VITALS: BP 127/83
[2022-01-27 12:00] VITALS: BP 126/70
[2022-01-27 14:50] LABS: BASO % 0.2 % (0.0-1.0); EOS # 0.5 10*3/uL (0.0-0.4); EOS % 4.5 % (1.0-4.0); HEMATOCRIT 33.9 % (37.0-47.0); LYMPH # 0.5 10*3/uL (1.3-4.4); LYMPH % 4.2 % (27.0-41.0); MEAN CELL VOLUME 90.2 fl (81.0-99.0); MEAN CORPUSCULAR HGB 28.2 pg (27.0-31.0); MEAN CORPUSCULAR HGB CONC 31.3 g/dl (33.0-37.0); MEAN PLATELET VOLUME 10.1 fl (9.6-12.3); MONO # 0.5 10*3/uL (0.1-1.0); MONO % 4.5 % (3.0-9.0); NEUT # 9.2 10*3/uL (2.3-7.9); PLATELET COUNT AUTOMATED 202 10*3/uL (130-400); RED BLOOD COUNT 3.76 10*6/uL (4.10-5.10); RED CELL DISTRI WIDTH 13.4 % (0-14.5); WHITE BLOOD COUNT 10.7 10*3/uL (4.8-10.8)
[2022-01-27 16:00] VITALS: BP 139/85
[2022-01-27 20:00] VITALS: BP 115/78
[2022-01-28] VITALS: BP 134/78
[2022-01-28 08:00] VITALS: BP 137/80; BP 142/65
[2022-01-28 12:00] VITALS: BP 137/76
[2022-01-28 16:00] VITALS: BP 134/78
[2022-01-28 20:00] VITALS: BP 129/79
[2022-01-29] VITALS: BP 135/76
[2022-01-29 05:03] LABS: BUN 6 mg/dl (7-24); CREATININE 0.65 mg/dL (0.55-1.02)
[2022-01-29 05:04] LABS: CHLORIDE 111 mmol/L (98-107); SODIUM 144 mmol/L (136-145)
[2022-01-29 06:11] LABS: BASO % 0.5 % (0.0-1.0); EOS # 0.4 10*3/uL (0.0-0.4); EOS % 5.5 % (1.0-4.0); HEMATOCRIT 31.8 % (37.0-47.0); LYMPH # 0.7 10*3/uL (1.3-4.4); LYMPH % 8.8 % (27.0-41.0); MEAN CELL VOLUME 90.3 fl (81.0-99.0); MEAN CORPUSCULAR HGB 27.8 pg (27.0-31.0); MEAN CORPUSCULAR HGB CONC 30.8 g/dl (33.0-37.0); MEAN PLATELET VOLUME 10.9 fl (9.6-12.3); MONO # 0.6 10*3/uL (0.1-1.0); MONO % 7.4 % (3.0-9.0); NEUT # 6.1 10*3/uL (2.3-7.9); NEUT % 77.3 % (47.0-73.0); PLATELET COUNT AUTOMATED 214 10*3/uL (130-400); RED BLOOD COUNT 3.52 10*6/uL (4.10-5.10); RED CELL DISTRI WIDTH 13.3 % (0-14.5); WHITE BLOOD COUNT 7.9 10*3/uL (4.8-10.8)
[2022-01-29] MEDS ORDERED: ZYVOX600 MG PO (06:40)
[2022-01-29 08:00] VITALS: BP 135/78
[2022-02-02 00:06] LABS: A PHAGOCYTOPHILUM PCR Negative (Negative); EHRLICHIA CHAFFEENSIS PCR Negative (Negative)
== END 2022-01-29 12:28 | disposition home or self-care (01) | DRG 871 ==
LOC: ED 12:02 → 4E 15:43 → EDHOLD 15:43 → 5E 15:43 → 4E 01-26 08:57
PROVIDERS: Emergency Medicine; Student in an Organized Health Care Education/Training Program; ADMIT Internal Medicine; ATTEND Internal Medicine
DX: A41.9 Sepsis, unspecified organism (principal); N17.0 Acute kidney failure with tubular necrosis; N39.0 Urinary tract infection, site not specified; M87.88 Other osteonecrosis, other site; E44.1 Mild protein-calorie malnutrition; M06.9 Rheumatoid arthritis, unspecified; Z20.822 Contact with and (suspected) exposure to COVID-19; N18.30 Chronic kidney disease, stage 3 unspecified; R65.20 Severe sepsis without septic shock; L40.50 Arthropathic psoriasis, unspecified; B96.20 Unspecified Escherichia coli [E. coli] as the cause of diseases classified elsewhere; I12.9 Hypertensive chronic kidney disease with stage 1 through stage 4 chronic kidney disease, or unspecified chronic kidney disease; R62.7 Adult failure to thrive; Z68.27 Body mass index [BMI] 27.0-27.9, adult; Z85.528 Personal history of other malignant neoplasm of kidney; Z90.5 Acquired absence of kidney

== ENCOUNTER 2022-02-01 15:21 | Emergency (ER) | payer OTHER ==
[~2022-02-01] VITALS: Ht 160 cm; Wt 68.0 kg
[~2022-02-01 15:21] MED LIST changes: +ALENDRONATE SOD70 M1 PO; +OYSTER SHELL 51 EAC5 PO; +ZYVOX600 MG PO
[2022-02-01 15:26] VITALS: BP 133/73
[2022-02-01 19:59] LABS: BASO # 0.1 10*3/uL (0.0-0.1); BASO % 0.6 % (0.0-1.0); EOS # 0.4 10*3/uL (0.0-0.4); EOS % 3.7 % (1.0-4.0); HEMATOCRIT 35.6 % (37.0-47.0); LYMPH # 1.6 10*3/uL (1.3-4.4); LYMPH % 15.3 % (27.0-41.0); MEAN CELL VOLUME 88.3 fl (81.0-99.0); MEAN CORPUSCULAR HGB 28.3 pg (27.0-31.0); MEAN PLATELET VOLUME 9.9 fl (9.6-12.3); MONO # 0.9 10*3/uL (0.1-1.0); MONO % 8.8 % (3.0-9.0); NEUT # 7.4 10*3/uL (2.3-7.9); NEUT % 69.2 % (47.0-73.0); PLATELET COUNT AUTOMATED 257 10*3/uL (130-400); RED BLOOD COUNT 4.03 10*6/uL (4.10-5.10); RED CELL DISTRI WIDTH 13.1 % (0-14.5); WHITE BLOOD COUNT 10.6 10*3/uL (4.8-10.8)
[2022-02-01 20:16] LABS: ALKALINE PHOSPHATASE 99 U/L (45-117); BUN 7 mg/dl (7-24); CHLORIDE 103 mmol/L (98-107); CREATININE 0.72 mg/dL (0.55-1.02); POTASSIUM 3.1 mmol/L (3.5-5.1); SGOT/AST 10 IU/L (3-35); SGPT/ALT 8 U/L (12-78); SODIUM 142 mmol/L (136-145); TOTAL PROTEIN 5.8 gm/dL (6.4-8.2)
== END 2022-02-01 21:50 | disposition home or self-care (01) ==
LOC: ED 15:21
PROVIDERS: Nurse Practitioner Family
DX: E87.6 Hypokalemia (principal); R53.83 Other fatigue; R53.1 Weakness; R60.0 Localized edema; R11.0 Nausea; M06.9 Rheumatoid arthritis, unspecified; Z79.899 Other long term (current) drug therapy

== ENCOUNTER 2022-11-16 21:57 | Emergency (ER) | payer OTHER ==
[~2022-11-16 21:57] MED LIST changes: +AUGMENTIN XR 11 EACH PO; +CORTEF5 M1 PO; +LEVOFLOXACIN750 M2 PO; +METOCLOPRAMIDE H5 M1 PO; +METOCLOPRAMIDE H5 M2 PO; +ONDANSETRON HYDR8 MG PO; +VITAMIN D350 MC2 PO
[2022-11-16 22:05] VITALS: BP 144/82
[2022-11-16 22:21] LABS: BILIRUBIN Negative (Negative); BLOOD Negative (Negative); CLARITY Cloudy (Clear); COLOR Dark Yellow (Yellow); GLUCOSE Negative (Negative); KETONE Trace (Negative); LEUKO ESTERASE 2+ (Negative); NITRITE Negative (Negative); SPECIFIC GRAVITY 1.025 (1.001-1.030)
[2022-11-16 22:26] LABS: BASO # 0.1 10*3/uL (0.0-0.1); BASO % 0.9 % (0.0-1.0); EOS # 0.4 10*3/uL (0.0-0.4); EOS % 3.9 % (1.0-4.0); HEMATOCRIT 37.7 % (37.0-47.0); LYMPH # 1.3 10*3/uL (1.3-4.4); LYMPH % 11.2 % (27.0-41.0); MEAN CELL VOLUME 84.3 fl (81.0-99.0); MEAN CORPUSCULAR HGB 25.7 pg (27.0-31.0); MEAN CORPUSCULAR HGB CONC 30.5 g/dl (33.0-37.0); MEAN PLATELET VOLUME 10.1 fl (9.6-12.3); MONO # 0.7 10*3/uL (0.1-1.0); MONO % 5.7 % (3.0-9.0); NEUT # 8.8 10*3/uL (2.3-7.9); PLATELET COUNT AUTOMATED 320 10*3/uL (130-400); RED BLOOD COUNT 4.47 10*6/uL (4.10-5.10); RED CELL DISTRI WIDTH 14.6 % (0-14.5); WHITE BLOOD COUNT 11.3 10*3/uL (4.8-10.8)
[2022-11-16 22:43] LABS: BACTERIA 1+; CALCIUM OXALATE CRYSTALS 1+; MUCOUS 1+; WBC 21-30 wbc/hpf (0-5)
[2022-11-16 22:51] LABS: ALKALINE PHOSPHATASE 90 U/L (46-116); BUN 11 mg/dl (9-23); CHLORIDE 103 mmol/L (98-107); POTASSIUM 3.4 mmol/L (3.4-5.1); TOTAL PROTEIN 5.9 gm/dL (6.0-8.0)
[2022-11-16 22:54] LABS: SGPT/ALT < 7 U/L (10-49)
[2022-11-16] MEDS ORDERED: CIPRO500 MG PO (23:16)
[2022-11-16] MEDS ORDERED: ONDANSETRON4 MG SL (23:16)
== END 2022-11-17 00:19 | disposition home or self-care (01) ==
LOC: ED 21:57
PROVIDERS: Internal Medicine
DX: N39.0 Urinary tract infection, site not specified (principal); N18.31 Chronic kidney disease, stage 3a; G43.909 Migraine, unspecified, not intractable, without status migrainosus; M19.90 Unspecified osteoarthritis, unspecified site; Z98.890 Other specified postprocedural states

== ENCOUNTER → 2023-01-24 | Outpatient (CLI) | payer OTHER ==
[~2023-01-24] MED LIST changes: +CEFDINIR300 MG PO; +CIPRO500 MG PO; +MIDODRINE HCL5 M1 PO; +ONDANSETRON4 MG SL
[2023-01-24 07:34] LABS: BASO # 0.1 10*3/uL (0.0-0.1); BASO % 0.3 % (0.0-1.0); EOS # 0.1 10*3/uL (0.0-0.4); EOS % 0.4 % (1.0-4.0); HEMATOCRIT 43.8 % (37.0-47.0); LYMPH # 1.2 10*3/uL (1.3-4.4); LYMPH % 7.6 % (27.0-41.0); MEAN CELL VOLUME 88.7 fl (81.0-99.0); MEAN CORPUSCULAR HGB 27.1 pg (27.0-31.0); MEAN CORPUSCULAR HGB CONC 30.6 g/dl (33.0-37.0); MEAN PLATELET VOLUME 10.6 fl (9.6-12.3); MONO # 0.8 10*3/uL (0.1-1.0); MONO % 5.1 % (3.0-9.0); NEUT # 13.9 10*3/uL (2.3-7.9); NEUT % 85.7 % (47.0-73.0); PLATELET COUNT AUTOMATED 280 10*3/uL (130-400); RED BLOOD COUNT 4.94 10*6/uL (4.10-5.10); RED CELL DISTRI WIDTH 16.7 % (0-14.5); WHITE BLOOD COUNT 16.2 10*3/uL (4.8-10.8)
[2023-01-24 08:04] LABS: ALKALINE PHOSPHATASE 132 U/L (46-116); BUN 13 mg/dl (9-23); CHLORIDE 108 mmol/L (98-107); CHOLESTEROL 128 mg/dL (<200); FREE T4 1.35 ng/dl (0.89-1.76); LDL CHOLESTEROL 52 mg/dL (9-159); POTASSIUM 4.6 mmol/L (3.4-5.1); SGPT/ALT 14 U/L (10-49); TOTAL PROTEIN 5.9 gm/dL (6.0-8.0); TRIGLYCERIDES 91 mg/dl (<150)
[2023-01-24 08:23] LABS: VITAMIN D, 25-HYDROXY 28.3 ng/mL (30-100)
== END | disposition home or self-care (01) ==
LOC: RESCLI 01:13 → LAB 01:13 → RESCLI 23:45
PROVIDERS: Internal Medicine; ATTEND Student in an Organized Health Care Education/Training Program
DX: M06.9 Rheumatoid arthritis, unspecified (principal); I10 Essential (primary) hypertension; E55.9 Vitamin D deficiency, unspecified; F41.1 Generalized anxiety disorder; K21.9 Gastro-esophageal reflux disease without esophagitis; F32.A Depression, unspecified; Z00.00 Encounter for general adult medical examination without abnormal findings; Z79.82 Long term (current) use of aspirin; Z79.899 Other long term (current) drug therapy

== ENCOUNTER → 2023-07-04 | Outpatient (CLI) | payer OTHER ==
[2023-07-04 12:50] LABS: BASO % 0.3 % (0.0-1.0); EOS # 0.1 10*3/uL (0.0-0.4); EOS % 0.5 % (1.0-4.0); HEMATOCRIT 42.7 % (37.0-47.0); LYMPH # 1.6 10*3/uL (1.3-4.4); LYMPH % 11.2 % (27.0-41.0); MEAN CELL VOLUME 96.6 fl (81.0-99.0); MEAN CORPUSCULAR HGB 29.9 pg (27.0-31.0); MEAN CORPUSCULAR HGB CONC 30.9 g/dl (33.0-37.0); MEAN PLATELET VOLUME 10.2 fl (9.6-12.3); MONO # 0.9 10*3/uL (0.1-1.0); MONO % 6.2 % (3.0-9.0); NEUT # 11.6 10*3/uL (2.3-7.9); PLATELET COUNT AUTOMATED 218 10*3/uL (130-400); RED BLOOD COUNT 4.42 10*6/uL (4.10-5.10); RED CELL DISTRI WIDTH 13.2 % (0-14.5); WHITE BLOOD COUNT 14.4 10*3/uL (4.8-10.8)
[2023-07-04 13:38] LABS: ALKALINE PHOSPHATASE 109 U/L (46-116); BUN 27 mg/dl (9-23); CHLORIDE 107 mmol/L (98-107); CHOLESTEROL 193 mg/dL (<200); FREE T4 1.11 ng/dl (0.89-1.76); LDL CHOLESTEROL 102 mg/dL (9-159); POTASSIUM 4.1 mmol/L (3.4-5.1); SGPT/ALT 11 U/L (5-49); TOTAL PROTEIN 6.1 gm/dL (6.0-8.0); TRIGLYCERIDES 119 mg/dl (<150)
[2023-07-04 13:40] LABS: VITAMIN D, 25-HYDROXY 56.9 ng/mL (30-100)
== END | disposition home or self-care (01) ==
LOC: LAB 12:14
PROVIDERS: ATTEND Internal Medicine
DX: Z13.0 Encounter for screening for diseases of the blood and blood-forming organs and certain disorders involving the immune mechanism (principal); Z13.1 Encounter for screening for diabetes mellitus; Z13.21 Encounter for screening for nutritional disorder; Z13.220 Encounter for screening for lipoid disorders; Z13.228 Encounter for screening for other metabolic disorders; Z13.29 Encounter for screening for other suspected endocrine disorder; Z13.6 Encounter for screening for cardiovascular disorders; Z13.89 Encounter for screening for other disorder; Z13.9 Encounter for screening, unspecified

== ENCOUNTER → 2023-08-02 | Outpatient (CLI) | payer OTHER ==
[2023-08-02 12:17] LABS: BASO # 0.1 10*3/uL (0.0-0.1); BASO % 0.4 % (0.0-1.0); EOS # 0.1 10*3/uL (0.0-0.4); EOS % 0.9 % (1.0-4.0); HEMATOCRIT 42.7 % (37.0-47.0); LYMPH # 1.4 10*3/uL (1.3-4.4); LYMPH % 11.8 % (27.0-41.0); MEAN CELL VOLUME 93.6 fl (81.0-99.0); MEAN CORPUSCULAR HGB 29.4 pg (27.0-31.0); MEAN CORPUSCULAR HGB CONC 31.4 g/dl (33.0-37.0); MEAN PLATELET VOLUME 10.4 fl (9.6-12.3); MONO # 0.8 10*3/uL (0.1-1.0); MONO % 6.8 % (3.0-9.0); NEUT # 9.2 10*3/uL (2.3-7.9); NEUT % 79.5 % (47.0-73.0); PLATELET COUNT AUTOMATED 247 10*3/uL (130-400); RED BLOOD COUNT 4.56 10*6/uL (4.10-5.10); RED CELL DISTRI WIDTH 13.3 % (0-14.5); WHITE BLOOD COUNT 11.5 10*3/uL (4.8-10.8)
[2023-08-03 02:06] LABS: TOTAL PROTEIN, SERUM 5.9 g/dL (6.0-8.5)
[2023-08-03 05:27] LABS: HBSAG Negative (Negative); HEP B CORE AB, IGM Negative (Negative); HEPATITIS C ANTIBODY Non Reactive (Non Reactive)
[2023-08-04 13:07] LABS: A/G RATIO 1.4 (0.7-1.7); ALBUMIN 3.4 g/dL (2.9-4.4); ALPHA-1-GLOBULIN 0.3 g/dL (0.0-0.4); ALPHA-2-GLOBULIN 0.9 g/dL (0.4-1.0); BETA GLOBULIN 0.9 g/dL (0.7-1.3); GAMMA GLOBULIN 0.5 g/dL (0.4-1.8); GLOBULIN, TOTAL 2.5 g/dL (2.2-3.9)
[2023-08-04 17:07] LABS: TB1 Ag VALUE 0.01 IU/mL (.)
== END | disposition home or self-care (01) ==
LOC: LAB 11:39
PROVIDERS: ATTEND Internal Medicine Rheumatology
DX: M05.20 Rheumatoid vasculitis with rheumatoid arthritis of unspecified site (principal); R53.83 Other fatigue; Z79.52 Long term (current) use of systemic steroids; Z79.899 Other long term (current) drug therapy

== ENCOUNTER → 2024-05-01 | Outpatient (CLI) | payer OTHER ==
[2024-05-01 10:59] LABS: BASO # 0.1 10*3/uL (0.0-0.1); BASO % 0.5 % (0.0-1.0); EOS # 0.1 10*3/uL (0.0-0.4); EOS % 0.7 % (1.0-4.0); HEMATOCRIT 41.3 % (37.0-47.0); MEAN CELL VOLUME 95.8 fl (81.0-99.0); MEAN CORPUSCULAR HGB 29.7 pg (27.0-31.0); MEAN PLATELET VOLUME 10.8 fl (9.6-12.3); MONO # 0.8 10*3/uL (0.1-1.0); MONO % 4.6 % (3.0-9.0); NEUT # 15.4 10*3/uL (2.3-7.9); NEUT % 87.2 % (47.0-73.0); PLATELET COUNT AUTOMATED 259 10*3/uL (130-400); RED BLOOD COUNT 4.31 10*6/uL (4.10-5.10); WHITE BLOOD COUNT 17.7 10*3/uL (4.8-10.8)
[2024-05-01 11:30] LABS: FREE T4 1.22 ng/dl (0.89-1.76); POTASSIUM 4.3 mmol/L (3.4-5.1); TOTAL PROTEIN 6.6 gm/dL (6.0-8.0)
[2024-05-01 11:35] LABS: VITAMIN D, 25-HYDROXY 60.1 ng/mL (30-100)
== END | disposition home or self-care (01) ==
LOC: LAB 10:36
PROVIDERS: ATTEND Internal Medicine
DX: I10 Essential (primary) hypertension (principal); E55.9 Vitamin D deficiency, unspecified; R79.82 Elevated C-reactive protein (CRP); R53.83 Other fatigue; E53.9 Vitamin B deficiency, unspecified

== ENCOUNTER → 2024-07-09 | Outpatient (CLI) | payer OTHER | END | disposition home or self-care (01) | LOC: RESCLI 02:16 | PROVIDERS: ATTEND Internal Medicine | DX: I10 Essential (primary) hypertension (principal); M06.9 Rheumatoid arthritis, unspecified; K21.9 Gastro-esophageal reflux disease without esophagitis; Z79.899 Other long term (current) drug therapy; Z98.890 Other specified postprocedural states ==